=== PATIENT | female | born 1950 | race Caucasian/White ===

== ENCOUNTER 2020-02-17 17:56 | Inpatient (IN) | payer MEDICARE, OTHER ==
[2020-02-17] MEDS ORDERED: Sodium Chloride 0.9% 10 ML Syringe FLUSH PRN (17:58)
[2020-02-17] MEDS ORDERED: Sodium Chloride 0.9% 2.5 ML Syringe FLUSH PRN (17:58)
--- NOTE | 2020-02-17 18:01 | EDM.PDOC ---
ED HPI GENERAL MEDICAL PROBLEM - General Chief Complaint: General Stated Complaint: MUSCLE WEAKNESS Time Seen by Provider: 02/17/20 17:57 Source of Information: Reports: Patient History Limitations: Reports: No Limitations - History of Present Illness INITIAL COMMENTS - FREE TEXT/NARRATIVE: 69-year-old female who presents today from a fall from standing. Patient states that she was walking and last came out and she fell hitting the table her arm. Patient not sure if she hit her head or not but denies any LOC. After fall patient complains of no pain no nausea vomiting or change in ambulation. Patient that she has been having some trouble walking with her leg for the past few months at baseline. L forearm Pain Score (Numeric/FACES): 4 - Related Data Allergies Allergy/AdvReac Type Severity Reaction Status Date / Time coffee (Coffea arabica) Allergy Hives Verified 02/17/20 18:03 ibuprofen Allergy Hives Verified 02/17/20 18:03 Home Meds: Home Meds . [No Known Home Meds] 02/17/20 [History] ED ROS GENERAL - Review of Systems Review Of Systems: See Below Constitutional: Reports: No Symptoms HEENT: Reports: No Symptoms Respiratory: Reports: No Symptoms Cardiovascular: Reports: No Symptoms Endocrine: Reports: No Symptoms GI/Abdominal: Reports: No Symptoms : Reports: No Symptoms Musculoskeletal: Reports: No Symptoms Skin: Reports: No Symptoms Neurological: Reports: No Symptoms Psychiatric: Reports: No Symptoms Hematologic/Lymphatic: Reports: No Symptoms Immunologic: Reports: No Symptoms ED EXAM, GENERAL - Physical Exam Exam: See Below Exam Limited By: No Limitations General Appearance: Alert, WD/WN Eye Exam: Bilateral Eye: EOMI, PERRL Head: Atraumatic Neck: Normal Inspection Respiratory/Chest: No Respiratory Distress, Lungs Clear, Normal Breath Sounds Cardiovascular: Normal Peripheral Pulses, Regular Rate, Rhythm Peripheral Pulses: 2+: Radial (L), Radial (R) GI/Abdominal: Normal Bowel Sounds, Soft, Non-Tender Extremities: Normal Inspection, Normal Range of Motion Neurological: Alert, Oriented, CN II-XII Intact, Normal Cognition, Normal Gait #1 Interpretation EKG Date: 02/17/20 Time: 18:05 Rhythm: NSR Rate (Beats/Min): 84 ST-T: Normal Course - Vital Signs Last Recorded V/S: Last Vital Signs Temp 98 F 02/17/20 17:58 Pulse 91 02/17/20 17:58 Resp 20 02/17/20 17:58 BP 131/102 H 02/17/20 17:58 Pulse Ox 96 02/17/20 17:58 - Orders/Labs/Meds Orders: Active Orders 24 hr Category Date Time Status Consult to Home Care [Consult to Home Health] [CONS] Cons 02/17/20 18:47 Active Routine CORONAVIRUS COVID-19 JOSH [MOLEC] Urgent Lab 02/17/20 18:51 Ordered Sodium Chloride 0.9% [Normal Saline] 1,000 ml Med 02/17/20 18:15 Active IV ASDIRECTED Sodium Chloride 0.9% [Saline Flush] Med 02/17/20 17:58 Active 10 ml FLUSH ASDIRECTED PRN Sodium Chloride 0.9% [Saline Flush] Med 02/17/20 17:58 Active 2.5 ml FLUSH ASDIRECTED PRN Saline Lock Insert [OM.PC] Stat Oth 02/17/20 17:59 Ordered Medication Orders Sodium Chloride (Normal Saline) 1,000 mls @ 999 mls/hr IV ASDIRECTED ODELL Last Admin: 02/17/20 18:08 Dose: 999 mls/hr Documented by: REUSCIN Sodium Chloride (Saline Flush) 10 ml FLUSH ASDIRECTED PRN PRN Reason: Keep Vein Open Last Admin: 02/17/20 18:07 Dose: 10 ml Documented by: REUSCIN Sodium Chloride (Saline Flush) 2.5 ml FLUSH ASDIRECTED PRN PRN Reason: Keep Vein Open Last Admin: 02/17/20 18:07 Dose: 2.5 ml Documented by: REUSCIN Labs: Laboratory Tests 02/17/20 02/17/20 Range/Units 18:15 18:15 WBC 7.86 (4.0-11.0) K/uL RBC 4.71 (4.30-5.90) M/uL Hgb 14.6 (12.0-16.0) g/dL Hct 44.4 (36.0-46.0) % MCV 94.3 (80.0-98.0) fL MCH 31.0 (27.0-32.0) pg MCHC 32.9 (31.0-37.0) g/dL RDW Std Deviation 43.0 (28.0-62.0) fl RDW Coeff of Nicci 13 (11.0-15.0) % Plt Count 246 (150-400) K/uL MPV 10.20 (7.40-12.00) fL Neut % (Auto) 61.9 (48.0-80.0) % Lymph % (Auto) 30.0 (16.0-40.0) % [place] % (Auto) 6.9 (0.0-15.0) % Eos % (Auto) 0.9 (0.0-7.0) % Baso % (Auto) 0.3 (0.0-1.5) % Neut # (Auto) 4.9 (1.4-5.7) K/uL Lymph # (Auto) 2.4 (0.6-2.4) K/uL [place] # (Auto) 0.5 (0.0-0.8) K/uL Eos # (Auto) 0.1 (0.0-0.7) K/uL Baso # (Auto) 0.0 (0.0-0.1) K/uL Nucleated RBC % 0.0 /100WBC Nucleated RBCs # 0 K/uL Sodium 141 (136-145) mmol/L Potassium 3.5 (3.5-5.1) mmol/L Chloride 104 (98-107) mmol/L Carbon Dioxide 27.1 (21.0-32.0) mmol/L BUN 17 (7.0-18.0) mg/dL Creatinine 1.2 H (0.6-1.0) mg/dL Est Cr Clr Drug Dosing 37.67 mL/min Estimated GFR (MDRD) 44.4 ml/min Glucose 257 H (74-106) mg/dL Calcium 8.5 (8.5-10.1) mg/dL Meds: Medications Generic Name Dose Route Start Last Admin Trade Name Freq PRN Reason Stop Dose Admin Sodium Chloride 1,000 mls @ 999 mls/hr 02/17/20 18:15 02/17/20 18:08 Normal Saline IV 999 mls/hr ASDIRECTED ODELL Administration Sodium Chloride 10 ml 02/17/20 17:58 02/17/20 18:07 Saline Flush FLUSH 10 ml ASDIRECTED PRN Administration Keep Vein Open Sodium Chloride 2.5 ml 02/17/20 17:58 02/17/20 18:07 Saline Flush FLUSH 2.5 ml ASDIRECTED PRN Administration Keep Vein Open Discontinued Medications Generic Name Dose Route Start Last Admin Trade Name Tracy PRN Reason Stop Dose Admin Amlodipine Besylate 5 mg 02/17/20 18:50 Norvasc PO 02/17/20 18:51 ONETIME ONE - Re-Assessments/Exams Free Text/Narrative Re-Assessment/Exam: 02/17/20 18:[address] is negative as well as C-spine. Patient sugar still greater than 250 patient likely a new onset diabetic will likely need to be started on Metformin patient also has an elevated blood pressure greater than 200 she states she never goes to the physician patient may need to be started on blood pressure medication as well will get amlodipine in the ED. Patient is asymptomatic with a high blood pressure. The hospitalist and also consulted, they patient will be admitted to the hospital for further care. Departure - Departure Time of Disposition: 18:58 Disposition: Admitted As Inpatient 65 Condition: Good Clinical Impression: Diabetes mellitus, new onset, Hypertensive urgency - Discharge Information *PRESCRIPTION DRUG MONITORING PROGRAM REVIEWED*: Not Applicable *COPY OF PRESCRIPTION DRUG MONITORING REPORT IN PATIENT DAYANA: Not Applicable Referrals: PCP,None [Primary Care Provider] - Forms: ED Department Discharge Sepsis Event Note (ED) - Focused Exam Vital Signs: Vital Signs Temp Pulse Resp BP Pulse Ox 02/17/20 17:58 98 F 91 20 131/102 H 96 - My Orders Last 24 Hours: My Active Orders 02/17/20 17:58 Sodium Chloride 0.9% [Saline Flush] 10 ml FLUSH ASDIRECTED PRN Sodium Chloride 0.9% [Saline Flush] 2.5 ml FLUSH ASDIRECTED PRN 02/17/20 17:59 Saline Lock Insert [OM.PC] Stat 02/17/20 18:15 Sodium Chloride 0.9% [Normal Saline] 1,000 ml IV ASDIRECTED 02/17/20 18:47 Consult to Home Care [Consult to Home Health] [CONS] Routine 02/17/20 18:51 CORONAVIRUS COVID-19 JOSH [MOLEC] Urgent - Assessment/Plan Last 24 Hours: My Active Orders 02/17/20 17:58 Sodium Chloride 0.9% [Saline Flush] 10 ml FLUSH ASDIRECTED PRN Sodium Chloride 0.9% [Saline Flush] 2.5 ml FLUSH ASDIRECTED PRN 02/17/20 17:59 Saline Lock Insert [OM.PC] Stat 02/17/20 18:15 Sodium Chloride 0.9% [Normal Saline] 1,000 ml IV ASDIRECTED 02/17/20 18:47 Consult to Home Care [Consult to Home Health] [CONS] Routine 02/17/20 18:51 CORONAVIRUS COVID-19 JOSH [MOLEC] Urgent Assessment:: Is a 69-year-old female who presents today after a fall from standing. Patient states her leg gave out. No signs of syncope. Patient has no LOC. Will obtain labs and CT scan of head.
[2020-02-17] MEDS ORDERED: Sodium Chloride 0.9% 1,000 ML IV SCH (18:15)
[2020-02-17 18:37] LABS: CARBON DIOXIDE,CO2 27.1 mmol/L (21.0-32.0); POTASSIUM,K 3.5 mmol/L (3.5-5.1)
--- NOTE | 2020-02-17 18:44 | CT ---
INDICATION: fall CT CERVICAL SPINE WITHOUT CONTRAST TECHNIQUE: Multidetector axial CT imaging was performed through the cervical spine, without contrast. Sagittal and coronal reconstructions were generated. FINDINGS: No acute fractures are identified. Multilevel degenerative change is noted in the cervical spine, including degenerative disc disease at C4-5, C5-6, and C6-7, and scattered minor facet joint degenerative changes. Osseous alignment is within normal limits and no subluxation is seen. Prevertebral soft tissues are unremarkable. Included portions of the airway and lung apices are unremarkable aside from pulmonary emphysema. IMPRESSION: 1. No fracture, subluxation, or other acute finding identified. 2. Cervical spondylosis, as noted above. EMERSON JIMENEZ MD [facility] Dictated by: Luther Jimenez MD @ 02/17/2020 18:43:06 (Electronically Signed)
--- NOTE | 2020-02-17 18:46 | CT ---
INDICATION: fall CT HEAD WITHOUT CONTRAST TECHNIQUE: Multiple axial CT images were performed through the head without intravenous contrast administration. COMPARISON: No previous studies are currently available for comparison. FINDINGS: No acute intracranial hemorrhage is identified. No extra-axial collections are evident and there is no mass effect or midline shift. There is mild diffuse age-related brain atrophy. Ventricular size and configuration are within normal limits for the patient`s age. Davila-white differentiation is within normal limits. There is patchy hypodensity in the periventricular white matter, a nonspecific finding which most likely reflects chronic small vessel ischemic change. There are small chronic lacunar infarcts in the basal ganglia and right centrum semiovale. Osseous structures are within normal limits and no fractures are seen. Included portions of the paranasal sinuses and mastoid air cells are normally aerated. IMPRESSION: 1. No acute intracranial abnormality identified. 2. Mild age-related brain atrophy, white matter hypodensity consistent with chronic small vessel ischemic change, and small chronic lacunar infarcts. EMERSON JIMENEZ MD [facility] Dictated by: Luther Jimenez MD @ 02/17/2020 18:44:10 (Electronically Signed)
[2020-02-17] MEDS ORDERED: amLODIPine 5 MG Tab PO ONE ×2 (18:50→22:20)
[2020-02-17] MEDS ORDERED: Diphtheria,Pertussis(Acell),Tetanus Vaccine 0.5 ML Syringe IM ONE (19:05)
[2020-02-17] MEDS ORDERED: Labetalol 100 MG/20 ML MDV IVPUSH ONE (19:46)
[2020-02-17] MEDS ORDERED: 50% Dextrose in Water 50 ML Syringe IV PRN (19:47)
[2020-02-17] MEDS ORDERED: Glucagon,Human Recombinant 1 MG Vial IM PRN (19:47)
[2020-02-17 20:09] LABS: BILIRUBIN INDIRECT 0.3
[2020-02-17] MEDS ORDERED: Aspirin 81 MG Tab.Chew PO SCH (21:00)
--- NOTE | 2020-02-17 22:14 | PCM.HP.2 ---
H&P History of Present Illness - General Date of Service: 02/17/20 Admit Problem/Dx: Admission Diagnosis/Problem Admission Diagnosis/Problem Fall - History of Present Illness Initial Comments - Free Text/Narative: 69-year-old female with h/o of hysterectomy 40 years back, who presents today from a fall from standing. Patient states she was walking towards her kitchen when she fell and scraped her arm. Patient not sure if she hit her head or not but denies any LOC. Patient denied pain, nausea vomiting , fever, chills, syncope. States she has been feeling her knees just give out sometimes and also is having some urinary incontinence for past 3 months. Denied any focal neurological deficits, denied, numbness, tingling, loss of sensation in perineum, or fecal incontinence. 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 Patient was found to be hypertensive with SBP in 200s, her blood sugars were high as well. Patient states she hasnt seen any physician for last few decades as she "doesnt like to see doctors" and takes no meds. She lives at home with her brother, per ER family was concerned about her falls. Patient was admitted for further management. L forearm Pain Score (Numeric/FACES): 4 - Related Data Allergies/Adverse Reactions: Allergies Allergy/AdvReac Type Severity Reaction Status Date / Time coffee (Coffea arabica) Allergy Hives Verified 02/17/20 22:54 ibuprofen Allergy Hives Verified 02/17/20 22:54 Home Medications: Home Meds . 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 Denies: Fever, Chills, Malaise, Fatigue, Decreased Appetite, Weight Loss Pulmonary: Denies: Shortness of Breath, Wheezing Cardiovascular: Denies: Chest Pain, Palpitations, Dyspnea on Exertion Gastrointestinal: Denies: Abdominal Pain, Anorexia, Black Stool, Bloody Stool, Constipation Genitourinary: Reports: Dysuria, Frequency, Urgency, Incontinence Musculoskeletal: Denies: Neck Pain, Shoulder Pain, Arm Pain Skin: Denies: Cyanosis, Jaundice, Mottled Psychiatric: Denies: Confusion, Depression Exam - Exam Exam: See Below - Vital Signs Vital Signs: Last Vital Signs Temp 36.6 C 02/17/20 17:58 Pulse 86 02/17/20 21:31 Resp 18 02/17/20 21:31 BP 213/75 H 02/17/20 21:31 Pulse Ox 97 02/17/20 21:31 Orthostatic Blood Pressure [ 200/88 Sitting] Orthostatic Blood Pressure [ 170/88 Standing] Orthostatic Blood Pressure [ 153/90 Supine] Weight: 65.136 kg - Exam Quality Assessment: No: Supplemental Oxygen General: Alert, Oriented, Cooperative Neck: Supple Lungs: Clear to Auscultation, Normal Respiratory Effort Cardiovascular: Regular Rate, Regular Rhythm, Normal S1, Normal S2 GI/Abdominal Exam: Normal Bowel Sounds, Soft, Non-Tender Back Exam: Normal Inspection, Full Range of Motion Extremities: Normal Inspection, Normal Range of Motion Skin: Warm, Dry - Patient Data Lab Results Last 24 hrs: Laboratory Results - last 24 hr 02/17/20 02/17/20 02/17/20 Range/Units 18:15 18:15 18:15 WBC 7.86 (4.0-11.0) K/uL RBC 4.71 (4.30-5.90) M/uL Hgb 14.6 (12.0-16.0) g/dL Hct 44.4 (36.0-46.0) % MCV 94.3 (80.0-98.0) fL MCH 31.0 (27.0-32.0) pg MCHC 32.9 (31.0-37.0) g/dL RDW Std Deviation 43.0 (28.0-62.0) fl RDW Coeff of Nicci 13 (11.0-15.0) % Plt Count 246 (150-400) K/uL MPV 10.20 (7.40-12.00) fL Neut % (Auto) 61.9 (48.0-80.0) % Lymph % (Auto) 30.0 (16.0-40.0) % [place] % (Auto) 6.9 (0.0-15.0) % Eos % (Auto) 0.9 (0.0-7.0) % Baso % (Auto) 0.3 (0.0-1.5) % Neut # (Auto) 4.9 (1.4-5.7) K/uL Lymph # (Auto) 2.4 (0.6-2.4) K/uL [place] # (Auto) 0.5 (0.0-0.8) K/uL Eos # (Auto) 0.1 (0.0-0.7) K/uL Baso # (Auto) 0.0 (0.0-0.1) K/uL Nucleated RBC % 0.0 /100WBC Nucleated RBCs # 0 K/uL Sodium 141 (136-145) mmol/L Potassium 3.5 (3.5-5.1) mmol/L Chloride 104 (98-107) mmol/L Carbon Dioxide 27.1 (21.0-32.0) mmol/L BUN 17 (7.0-18.0) mg/dL Creatinine 1.2 H (0.6-1.0) mg/dL Est Cr Clr Drug Dosing 37.67 mL/min Estimated GFR (MDRD) 44.4 ml/min Glucose 257 H (74-106) mg/dL Hemoglobin A1c 10.0 H (4.5 - 6.2) % Calcium 8.5 (8.5-10.1) mg/dL Total Bilirubin (0.2-1.0) mg/dL Direct Bilirubin (0.0-0.5) mg/dL Indirect Bilirubin AST (15-37) IU/L ALT (14-63) IU/L Alkaline Phosphatase (46-116) U/L Total Protein (6.4-8.2) g/dL Albumin (3.4-5.0) g/dL Globulin (2.6-4.0) g/dL Albumin/Globulin Ratio (0.9-1.6) TSH 3rd Generation (0.36-3.74) uIU/mL SARS-CoV-2 RNA (JOSH) (NEGATIVE) 02/17/20 02/17/20 02/17/20 Range/Units 18:15 18:15 19:14 WBC (4.0-11.0) K/uL RBC (4.30-5.90) M/uL Hgb (12.0-16.0) g/dL Hct (36.0-46.0) % MCV (80.0-98.0) fL MCH (27.0-32.0) pg MCHC (31.0-37.0) g/dL RDW Std Deviation (28.0-62.0) fl RDW Coeff of Nicci (11.0-15.0) % Plt Count (150-400) K/uL MPV (7.40-12.00) fL Neut % (Auto) (48.0-80.0) % Lymph % (Auto) (16.0-40.0) % [place] % (Auto) (0.0-15.0) % Eos % (Auto) (0.0-7.0) % Baso % (Auto) (0.0-1.5) % Neut # (Auto) (1.4-5.7) K/uL Lymph # (Auto) (0.6-2.4) K/uL [place] # (Auto) (0.0-0.8) K/uL Eos # (Auto) (0.0-0.7) K/uL Baso # (Auto) (0.0-0.1) K/uL Nucleated RBC % /100WBC Nucleated RBCs # K/uL Sodium (136-145) mmol/L Potassium (3.5-5.1) mmol/L Chloride (98-107) mmol/L Carbon Dioxide (21.0-32.0) mmol/L BUN (7.0-18.0) mg/dL Creatinine (0.6-1.0) mg/dL Est Cr Clr Drug Dosing mL/min Estimated GFR (MDRD) ml/min Glucose (74-106) mg/dL Hemoglobin A1c (4.5 - 6.2) % Calcium (8.5-10.1) mg/dL Total Bilirubin 0.4 (0.2-1.0) mg/dL Direct Bilirubin 0.10 (0.0-0.5) mg/dL Indirect Bilirubin 0.30 AST 12 L (15-37) IU/L ALT 20 (14-63) IU/L Alkaline Phosphatase 94 (46-116) U/L Total Protein 6.4 (6.4-8.2) g/dL Albumin 3.3 L (3.4-5.0) g/dL Globulin 3.1 (2.6-4.0) g/dL Albumin/Globulin Ratio 1.1 (0.9-1.6) TSH 3rd Generation 13.51 H (0.36-3.74) uIU/mL SARS-CoV-2 RNA (JOSH) NEGATIVE (NEGATIVE) Result Diagrams: 02/18/20 06:13 02/18/20 06:13 Sepsis Event Note - Evaluation Sepsis Screening Result: No Definite Risk - Focused Exam Vital Signs: Vital Signs Temp Pulse Resp BP BP Pulse Ox 02/17/20 21:31 86 18 213/75 H 97 02/17/20 20:02 95 16 172/95 H 94 L 02/17/20 19:09 200/88 H 02/17/20 17:58 36.6 C 91 20 131/102 H 96 - Problem List (1) Falls SNOMED Code(s): 0067414, 446836198 ICD Code: W19.XXXA - UNSPECIFIED FALL, INITIAL ENCOUNTER Status: Acute Current Visit: Yes (2) Diabetes mellitus, new onset SNOMED Code(s): 523105245, 996938662 ICD Code: E11.9 - TYPE 2 DIABETES MELLITUS WITHOUT COMPLICATIONS Status: Acute Current Visit: Yes (3) Hypertensive urgency SNOMED Code(s): 799637602 ICD Code: I16.0 - HYPERTENSIVE URGENCY Status: Acute Current Visit: Yes Problem List Initiated/Reviewed/Updated: Yes Orders Last 24hrs: Active Orders 24 hr Category Date Time Status Patient Status [ADT] Routine ADT 02/17/20 19:02 Active Ambulate [RC] ASDIRECTED Care 02/17/20 19:43 Active Antiembolic Devices [RC] PER UNIT ROUTINE Care 02/17/20 19:44 Active Oxygen Therapy [RC] PRN Care 02/17/20 19:43 Active Telemetry Monitoring [Cardiac Monitoring] [RC] . Care 02/17/20 20:16 Active DIRECTED VTE/DVT Education [RC] Q12H Care 02/17/20 19:43 Active Vaccines to be Administered [RC] PER UNIT ROUTINE Care 02/17/20 19:05 Active Vital Signs [RC] Q4H Care 02/17/20 19:43 Active Consult to Home Care [Consult to Home Health] [CONS] Cons 02/17/20 18:47 Active Routine [employer] Diet [DIET] Diet 02/17/20 Breakfast Active BMP [BASIC METABOLIC PANEL,BMP] [CHEM] AM Lab 02/18/20 05:11 Ordered CBC WITH AUTO DIFF [HEME] AM Lab 02/18/20 05:11 Ordered LIPID PANEL [CHEM] AM Lab 02/18/20 05:11 Ordered MAGNESIUM [CHEM] AM Lab 02/18/20 05:11 Ordered PHOSPHORUS [CHEM] AM Lab 02/18/20 05:11 Ordered UA RFX CHRISTIAN AND CULT IF INDIC [URIN] Routine Lab 02/17/20 19:55 Ordered Aspirin Med 02/17/20 21:00 Active 81 mg PO BEDTIME Dextrose 50% in Water Med 02/17/20 19:47 Active 50 ml IV ASDIRECTED PRN Glucagon,Human Recombinant [GlucaGen] Med 02/17/20 19:47 Active 1 mg IM ASDIRECTED PRN Insulin Aspart [NovoLOG] Med 02/18/20 07:30 Active See Protocol SUBCUT TIDAC Labetalol [Normodyne] Med 02/17/20 19:46 Active 20 mg IVPUSH Q4H PRN Sodium Chloride 0.9% [Normal Saline] 1,000 ml Med 02/17/20 18:15 Active IV ASDIRECTED Sodium Chloride 0.9% [Saline Flush] Med 02/17/20 17:58 Active 10 ml FLUSH ASDIRECTED PRN Sodium Chloride 0.9% [Saline Flush] Med 02/17/20 17:58 Active 2.5 ml FLUSH ASDIRECTED PRN amLODIPine [Norvasc] Med 02/18/20 09:00 Active 10 mg PO DAILY atorvaSTATin [Lipitor] Med 02/18/20 21:00 Active 20 mg PO BEDTIME Saline Lock Insert [OM.PC] Stat Oth 02/17/20 17:59 Ordered Sequential Compression Device [OM.PC] Per Unit Routine Oth 02/17/20 19:44 Ordered Resuscitation Status Routine Resus Stat 02/17/20 19:43 Ordered Medication Orders Amlodipine Besylate (Norvasc) 10 mg PO DAILY [facility] Aspirin (Aspirin) 81 mg PO BEDTIME [facility] Last Admin: 02/17/20 21:29 Dose: Not Given Documented by: SHAREE Atorvastatin Calcium (Lipitor) 20 mg PO BEDTIME [facility] Dextrose/Water (Dextrose 50% In Water) 50 ml IV ASDIRECTED PRN PRN Reason: Hypoglycemia Glucagon (Glucagen) 1 mg IM ASDIRECTED PRN PRN Reason: Hypoglycemia Sodium Chloride (Normal Saline) 1,000 mls @ 999 mls/hr IV ASDIRECTED [facility] Last Admin: 02/17/20 18:08 Dose: 999 mls/hr Documented by: THANH Insulin Aspart (Novolog) 0 unit SUBCUT TIDAC [facility]; Protocol Labetalol HCl (Normodyne) 20 mg IVPUSH Q4H PRN; Protocol PRN Reason: Hypertension Sodium Chloride (Saline Flush) 10 ml FLUSH ASDIRECTED PRN PRN Reason: Keep Vein Open Last Admin: 02/17/20 18:07 Dose: 10 ml Documented by: THANH Sodium Chloride (Saline Flush) 2.5 ml FLUSH ASDIRECTED PRN PRN Reason: Keep Vein Open Last Admin: 02/17/20 18:07 Dose: 2.5 ml Documented by: JOHANNUSCIN Assessment/Plan Comment:: 69 y/o F admitted for frequent falls, newly diagnosed HTN, and DM Start Labetalol 20 mg PRN for SBP>180 Start Lisinopril got HTN Start SSI obtain HbA1c, lipid panel, TSH Start Atorvastatin, patient allergic to Aspirin Obtain UA Consult PT Anticipate 2-3 midnight stays
[2020-02-17] MEDS: Labetalol 100 MG/20 ML MDV IVPUSH PRN (23:07)
[2020-02-18] MEDS: Labetalol 100 MG/20 ML MDV IVPUSH PRN (01:25)
[2020-02-18] MEDS ORDERED: Diltiazem 25 MG/5 ML SDV IVPUSH ONE (01:26)
[2020-02-18 07:21] LABS: CARBON DIOXIDE,CO2 25.7 mmol/L (21.0-32.0); POTASSIUM,K 3.2 mmol/L (3.5-5.1)
[2020-02-18] MEDS ORDERED: Lisinopril 5 MG Tab PO SCH ×2 (09:00→09:45)
[2020-02-18] MEDS: amLODIPine 5 MG Tab PO SCH (09:01)
[2020-02-18] MEDS: Insulin Aspart 100 Units/ML 3 ML Pen SUBCUT SCH ×3 (09:23→18:30)
[2020-02-18] MEDS ORDERED: Lisinopril 5 MG Tab PO ONE (10:00)
[2020-02-18] MEDS: cefTRIAXone 1 GM in Premix Bag 1 BAG IV SCH (11:46)
[2020-02-18] MEDS: Acidophilus with Citrus Pectin Tab PO SCH (13:34)
--- NOTE | 2020-02-18 15:07 | PCM.PN ---
- General Info Date of Service: 02/18/20 Admission Dx/Problem (Free Text): Admission Diagnosis/Problem Admission Diagnosis/Problem Fall Subjective Update: 69-year-old female admitted post fall for weakness and work-up contributing to fall. Patient appears to be weak, mildly confused, unstable on her feet. There were no overnight events, this morning states she feels little better. Denies any fever cough, chills, or pain. Functional Status: Reports: Pain Controlled, Tolerating Diet, Urinating - Review of Systems General: Reports: Weakness HEENT: Reports: No Symptoms Pulmonary: Reports: No Symptoms Cardiovascular: Reports: No Symptoms Gastrointestinal: Reports: No Symptoms Genitourinary: Reports: No Symptoms Musculoskeletal: Reports: No Symptoms Skin: Reports: No Symptoms Neurological: Reports: No Symptoms Psychiatric: Reports: No Symptoms - Patient Data Vitals - Most Recent: Last Vital Signs Temp 97.7 F 02/18/20 11:54 Pulse 84 02/18/20 11:54 Resp 16 02/18/20 11:54 BP 125/64 02/18/20 11:54 Pulse Ox 95 02/18/20 11:54 Orthostatic Blood Pressure [ 200/88 Sitting] Orthostatic Blood Pressure [ 170/88 Standing] Orthostatic Blood Pressure [ 153/90 Supine] Weight - Most Recent: 143 lb 9.6 oz I&O - Last 24 Hours: Intake & Output 02/18/20 02/18/20 02/18/20 06:59 14:59 22:59 Intake Total 500 Balance 500 Lab Results Last 24 Hours: Laboratory Results - last 24 hr 02/17/20 02/17/20 02/17/20 Range/Units 18:15 18:15 18:15 WBC 7.86 (4.0-11.0) K/uL RBC 4.71 (4.30-5.90) M/uL Hgb 14.6 (12.0-16.0) g/dL Hct 44.4 (36.0-46.0) % MCV 94.3 (80.0-98.0) fL MCH 31.0 (27.0-32.0) pg MCHC 32.9 (31.0-37.0) g/dL RDW Std Deviation 43.0 (28.0-62.0) fl RDW Coeff of Nicci 13 (11.0-15.0) % Plt Count 246 (150-400) K/uL MPV 10.20 (7.40-12.00) fL Neut % (Auto) 61.9 (48.0-80.0) % Lymph % (Auto) 30.0 (16.0-40.0) % [place] % (Auto) 6.9 (0.0-15.0) % Eos % (Auto) 0.9 (0.0-7.0) % Baso % (Auto) 0.3 (0.0-1.5) % Neut # (Auto) 4.9 (1.4-5.7) K/uL Lymph # (Auto) 2.4 (0.6-2.4) K/uL [place] # (Auto) 0.5 (0.0-0.8) K/uL Eos # (Auto) 0.1 (0.0-0.7) K/uL Baso # (Auto) 0.0 (0.0-0.1) K/uL Nucleated RBC % 0.0 /100WBC Nucleated RBCs # 0 K/uL Sodium 141 (136-145) mmol/L Potassium 3.5 (3.5-5.1) mmol/L Chloride 104 (98-107) mmol/L Carbon Dioxide 27.1 (21.0-32.0) mmol/L BUN 17 (7.0-18.0) mg/dL Creatinine 1.2 H (0.6-1.0) mg/dL Est Cr Clr Drug Dosing 37.67 mL/min Estimated GFR (MDRD) 44.4 ml/min Glucose 257 H (74-106) mg/dL POC Glucose (60-110) mg/dL Hemoglobin A1c 10.0 H (4.5 - 6.2) % Calcium 8.5 (8.5-10.1) mg/dL Phosphorus (2.6-4.7) mg/dL Magnesium (1.8-2.4) mg/dL Total Bilirubin (0.2-1.0) mg/dL Direct Bilirubin (0.0-0.5) mg/dL Indirect Bilirubin AST (15-37) IU/L ALT (14-63) IU/L Alkaline Phosphatase (46-116) U/L Total Protein (6.4-8.2) g/dL Albumin (3.4-5.0) g/dL Globulin (2.6-4.0) g/dL Albumin/Globulin Ratio (0.9-1.6) Triglycerides (0-200) mg/dL Cholesterol (50-200) mg/dL LDL Cholesterol, Calc (60-180) mg/dL VLDL Cholesterol (5-55) mg/dL HDL Cholesterol (40-60) mg/dL Cholesterol/HDL Ratio (3.3-6.0) Free T4 (0.76-1.46) ng/dL TSH 3rd Generation (0.36-3.74) uIU/mL Urine Color Urine Appearance Urine pH (5.0-8.0) Ur Specific [place] (1.001-1.035) Urine Protein (NEGATIVE) mg/dL Urine Glucose (UA) (NEGATIVE) mg/dL Urine Ketones (NEGATIVE) mg/dL Urine Occult Blood (NEGATIVE) Urine Nitrite (NEGATIVE) Urine Bilirubin (NEGATIVE) Urine Urobilinogen (<2.0) EU/dL Ur Leukocyte Esterase (NEGATIVE) Urine RBC (0-2/HPF) Urine WBC (0-5/HPF) Ur Epithelial Cells (NONE-FEW) Urine Bacteria (NEGATIVE) SARS-CoV-2 RNA (JOSH) (NEGATIVE) 02/17/20 02/17/20 02/17/20 Range/Units 18:15 18:15 18:15 WBC (4.0-11.0) K/uL RBC (4.30-5.90) M/uL Hgb (12.0-16.0) g/dL Hct (36.0-46.0) % MCV (80.0-98.0) fL MCH (27.0-32.0) pg MCHC (31.0-37.0) g/dL RDW Std Deviation (28.0-62.0) fl RDW Coeff of Nicci (11.0-15.0) % Plt Count (150-400) K/uL MPV (7.40-12.00) fL Neut % (Auto) (48.0-80.0) % Lymph % (Auto) (16.0-40.0) % [place] % (Auto) (0.0-15.0) % Eos % (Auto) (0.0-7.0) % Baso % (Auto) (0.0-1.5) % Neut # (Auto) (1.4-5.7) K/uL Lymph # (Auto) (0.6-2.4) K/uL [place] # (Auto) (0.0-0.8) K/uL Eos # (Auto) (0.0-0.7) K/uL Baso # (Auto) (0.0-0.1) K/uL Nucleated RBC % /100WBC Nucleated RBCs # K/uL Sodium (136-145) mmol/L Potassium (3.5-5.1) mmol/L Chloride (98-107) mmol/L Carbon Dioxide (21.0-32.0) mmol/L BUN (7.0-18.0) mg/dL Creatinine (0.6-1.0) mg/dL Est Cr Clr Drug Dosing mL/min Estimated GFR (MDRD) ml/min Glucose (74-106) mg/dL POC Glucose (60-110) mg/dL Hemoglobin A1c (4.5 - 6.2) % Calcium (8.5-10.1) mg/dL Phosphorus (2.6-4.7) mg/dL Magnesium (1.8-2.4) mg/dL Total Bilirubin 0.4 (0.2-1.0) mg/dL Direct Bilirubin 0.10 (0.0-0.5) mg/dL Indirect Bilirubin 0.30 AST 12 L (15-37) IU/L ALT 20 (14-63) IU/L Alkaline Phosphatase 94 (46-116) U/L Total Protein 6.4 (6.4-8.2) g/dL Albumin 3.3 L (3.4-5.0) g/dL Globulin 3.1 (2.6-4.0) g/dL Albumin/Globulin Ratio 1.1 (0.9-1.6) Triglycerides (0-200) mg/dL Cholesterol (50-200) mg/dL LDL Cholesterol, Calc (60-180) mg/dL VLDL Cholesterol (5-55) mg/dL HDL Cholesterol (40-60) mg/dL Cholesterol/HDL Ratio (3.3-6.0) Free T4 0.84 (0.76-1.46) ng/dL TSH 3rd Generation 13.51 H (0.36-3.74) uIU/mL Urine Color Urine Appearance Urine pH (5.0-8.0) Ur Specific [place] (1.001-1.035) Urine Protein (NEGATIVE) mg/dL Urine Glucose (UA) (NEGATIVE) mg/dL Urine Ketones (NEGATIVE) mg/dL Urine Occult Blood (NEGATIVE) Urine Nitrite (NEGATIVE) Urine Bilirubin (NEGATIVE) Urine Urobilinogen (<2.0) EU/dL Ur Leukocyte Esterase (NEGATIVE) Urine RBC (0-2/HPF) Urine WBC (0-5/HPF) Ur Epithelial Cells (NONE-FEW) Urine Bacteria (NEGATIVE) SARS-CoV-2 RNA (JOSH) (NEGATIVE) 02/17/20 02/18/20 02/18/20 Range/Units 19:14 06:13 06:13 WBC 8.43 (4.0-11.0) K/uL RBC 4.57 (4.30-5.90) M/uL Hgb 13.7 (12.0-16.0) g/dL Hct 43.2 (36.0-46.0) % MCV 94.5 (80.0-98.0) fL MCH 30.0 (27.0-32.0) pg MCHC 31.7 (31.0-37.0) g/dL RDW Std Deviation 43.3 (28.0-62.0) fl RDW Coeff of Nicci 13 (11.0-15.0) % Plt Count 242 (150-400) K/uL MPV 10.60 (7.40-12.00) fL Neut % (Auto) 59.8 (48.0-80.0) % Lymph % (Auto) 32.0 (16.0-40.0) % [place] % (Auto) 6.6 (0.0-15.0) % Eos % (Auto) 1.2 (0.0-7.0) % Baso % (Auto) 0.4 (0.0-1.5) % Neut # (Auto) 5.0 (1.4-5.7) K/uL Lymph # (Auto) 2.7 H (0.6-2.4) K/uL [place] # (Auto) 0.6 (0.0-0.8) K/uL Eos # (Auto) 0.1 (0.0-0.7) K/uL Baso # (Auto) 0.0 (0.0-0.1) K/uL Nucleated RBC % 0.0 /100WBC Nucleated RBCs # 0 K/uL Sodium 140 (136-145) mmol/L Potassium 3.2 L (3.5-5.1) mmol/L Chloride 103 (98-107) mmol/L Carbon Dioxide 25.7 (21.0-32.0) mmol/L BUN 13 (7.0-18.0) mg/dL Creatinine 1.0 (0.6-1.0) mg/dL Est Cr Clr Drug Dosing 45.20 mL/min Estimated GFR (MDRD) 54.8 ml/min Glucose 260 H (74-106) mg/dL POC Glucose (60-110) mg/dL Hemoglobin A1c (4.5 - 6.2) % Calcium 8.5 (8.5-10.1) mg/dL Phosphorus 3.2 (2.6-4.7) mg/dL Magnesium 2.1 (1.8-2.4) mg/dL Total Bilirubin (0.2-1.0) mg/dL Direct Bilirubin (0.0-0.5) mg/dL Indirect Bilirubin AST (15-37) IU/L ALT (14-63) IU/L Alkaline Phosphatase (46-116) U/L Total Protein (6.4-8.2) g/dL Albumin (3.4-5.0) g/dL Globulin (2.6-4.0) g/dL Albumin/Globulin Ratio (0.9-1.6) Triglycerides 314 H (0-200) mg/dL Cholesterol 218 H (50-200) mg/dL LDL Cholesterol, Calc 120 (60-180) mg/dL VLDL Cholesterol 62 H (5-55) mg/dL HDL Cholesterol 35 L (40-60) mg/dL Cholesterol/HDL Ratio 6.2 H (3.3-6.0) Free T4 (0.76-1.46) ng/dL TSH 3rd Generation (0.36-3.74) uIU/mL Urine Color Urine Appearance Urine pH (5.0-8.0) Ur Specific [place] (1.001-1.035) Urine Protein (NEGATIVE) mg/dL Urine Glucose (UA) (NEGATIVE) mg/dL Urine Ketones (NEGATIVE) mg/dL Urine Occult Blood (NEGATIVE) Urine Nitrite (NEGATIVE) Urine Bilirubin (NEGATIVE) Urine Urobilinogen (<2.0) EU/dL Ur Leukocyte Esterase (NEGATIVE) Urine RBC (0-2/HPF) Urine WBC (0-5/HPF) Ur Epithelial Cells (NONE-FEW) Urine Bacteria (NEGATIVE) SARS-CoV-2 RNA (JOSH) NEGATIVE (NEGATIVE) 02/18/20 02/18/20 02/18/20 Range/Units 06:14 09:02 09:40 WBC (4.0-11.0) K/uL RBC (4.30-5.90) M/uL Hgb (12.0-16.0) g/dL Hct (36.0-46.0) % MCV (80.0-98.0) fL MCH (27.0-32.0) pg MCHC (31.0-37.0) g/dL RDW Std Deviation (28.0-62.0) fl RDW Coeff of Nicci (11.0-15.0) % Plt Count (150-400) K/uL MPV (7.40-12.00) fL Neut % (Auto) (48.0-80.0) % Lymph % (Auto) (16.0-40.0) % [place] % (Auto) (0.0-15.0) % Eos % (Auto) (0.0-7.0) % Baso % (Auto) (0.0-1.5) % Neut # (Auto) (1.4-5.7) K/uL Lymph # (Auto) (0.6-2.4) K/uL [place] # (Auto) (0.0-0.8) K/uL Eos # (Auto) (0.0-0.7) K/uL Baso # (Auto) (0.0-0.1) K/uL Nucleated RBC % /100WBC Nucleated RBCs # K/uL Sodium (136-145) mmol/L Potassium (3.5-5.1) mmol/L Chloride (98-107) mmol/L Carbon Dioxide (21.0-32.0) mmol/L BUN (7.0-18.0) mg/dL Creatinine (0.6-1.0) mg/dL Est Cr Clr Drug Dosing mL/min Estimated GFR (MDRD) ml/min Glucose (74-106) mg/dL POC Glucose 258 H 234 H (60-110) mg/dL Hemoglobin A1c (4.5 - 6.2) % Calcium (8.5-10.1) mg/dL Phosphorus (2.6-4.7) mg/dL Magnesium (1.8-2.4) mg/dL Total Bilirubin (0.2-1.0) mg/dL Direct Bilirubin (0.0-0.5) mg/dL Indirect Bilirubin AST (15-37) IU/L ALT (14-63) IU/L Alkaline Phosphatase (46-116) U/L Total Protein (6.4-8.2) g/dL Albumin (3.4-5.0) g/dL Globulin (2.6-4.0) g/dL Albumin/Globulin Ratio (0.9-1.6) Triglycerides (0-200) mg/dL Cholesterol (50-200) mg/dL LDL Cholesterol, Calc (60-180) mg/dL VLDL Cholesterol (5-55) mg/dL HDL Cholesterol (40-60) mg/dL Cholesterol/HDL Ratio (3.3-6.0) Free T4 (0.76-1.46) ng/dL TSH 3rd Generation (0.36-3.74) uIU/mL Urine Color YELLOW Urine Appearance SLT CLOUDY Urine pH 6.0 (5.0-8.0) Ur Specific [place] 1.025 (1.001-1.035) Urine Protein NEGATIVE (NEGATIVE) mg/dL Urine Glucose (UA) 500 H (NEGATIVE) mg/dL Urine Ketones NEGATIVE (NEGATIVE) mg/dL Urine Occult Blood TRACE-INTACT H (NEGATIVE) Urine Nitrite NEGATIVE (NEGATIVE) Urine Bilirubin NEGATIVE (NEGATIVE) Urine Urobilinogen 0.2 (<2.0) EU/dL Ur Leukocyte Esterase TRACE H (NEGATIVE) Urine RBC 1-3 (0-2/HPF) Urine WBC 35-40 (0-5/HPF) Ur Epithelial Cells FEW (NONE-FEW) Urine Bacteria 4+ H (NEGATIVE) SARS-CoV-2 RNA (JOSH) (NEGATIVE) 02/17/ Range/Units 11:53 WBC (4.0-11.0) K/uL RBC (4.30-5.90) M/uL Hgb (12.0-16.0) g/dL Hct (36.0-46.0) % MCV (80.0-98.0) fL MCH (27.0-32.0) pg MCHC (31.0-37.0) g/dL RDW Std Deviation (28.0-62.0) fl RDW Coeff of Nicci (11.0-15.0) % Plt Count (150-400) K/uL MPV (7.40-12.00) fL Neut % (Auto) (48.0-80.0) % Lymph % (Auto) (16.0-40.0) % [place] % (Auto) (0.0-15.0) % Eos % (Auto) (0.0-7.0) % Baso % (Auto) (0.0-1.5) % Neut # (Auto) (1.4-5.7) K/uL Lymph # (Auto) (0.6-2.4) K/uL [place] # (Auto) (0.0-0.8) K/uL Eos # (Auto) (0.0-0.7) K/uL Baso # (Auto) (0.0-0.1) K/uL Nucleated RBC % /100WBC Nucleated RBCs # K/uL Sodium (136-145) mmol/L Potassium (3.5-5.1) mmol/L Chloride (98-107) mmol/L Carbon Dioxide (21.0-32.0) mmol/L BUN (7.0-18.0) mg/dL Creatinine (0.6-1.0) mg/dL Est Cr Clr Drug Dosing mL/min Estimated GFR (MDRD) ml/min Glucose (74-106) mg/dL POC Glucose 282 H (60-110) mg/dL Hemoglobin A1c (4.5 - 6.2) % Calcium (8.5-10.1) mg/dL Phosphorus (2.6-4.7) mg/dL Magnesium (1.8-2.4) mg/dL Total Bilirubin (0.2-1.0) mg/dL Direct Bilirubin (0.0-0.5) mg/dL Indirect Bilirubin AST (15-37) IU/L ALT (14-63) IU/L Alkaline Phosphatase (46-116) U/L Total Protein (6.4-8.2) g/dL Albumin (3.4-5.0) g/dL Globulin (2.6-4.0) g/dL Albumin/Globulin Ratio (0.9-1.6) Triglycerides (0-200) mg/dL Cholesterol (50-200) mg/dL LDL Cholesterol, Calc (60-180) mg/dL VLDL Cholesterol (5-55) mg/dL HDL Cholesterol (40-60) mg/dL Cholesterol/HDL Ratio (3.3-6.0) Free T4 (0.76-1.46) ng/dL TSH 3rd Generation (0.36-3.74) uIU/mL Urine Color Urine Appearance Urine pH (5.0-8.0) Ur Specific [place] (1.001-1.035) Urine Protein (NEGATIVE) mg/dL Urine Glucose (UA) (NEGATIVE) mg/dL Urine Ketones (NEGATIVE) mg/dL Urine Occult Blood (NEGATIVE) Urine Nitrite (NEGATIVE) Urine Bilirubin (NEGATIVE) Urine Urobilinogen (<2.0) EU/dL Ur Leukocyte Esterase (NEGATIVE) Urine RBC (0-2/HPF) Urine WBC (0-5/HPF) Ur Epithelial Cells (NONE-FEW) Urine Bacteria (NEGATIVE) SARS-CoV-2 RNA (JOSH) (NEGATIVE) Med Orders - Current: Current Medications Acidophilus/Pectin (Acidophilus/Pectin, Cole) 1 tab PO DAILY [facility] Last Admin: 02/18/20 13:34 Dose: 1 tab Documented by: Amlodipine Besylate (Norvasc) 10 mg PO DAILY [facility] Last Admin: 02/18/20 09:01 Dose: 10 mg Documented by: Atorvastatin Calcium (Lipitor) 20 mg PO BEDTIME [facility] Dextrose/Water (Dextrose 50% In Water) 50 ml IV ASDIRECTED PRN PRN Reason: Hypoglycemia Glucagon (Glucagen) 1 mg IM ASDIRECTED PRN PRN Reason: Hypoglycemia Ceftriaxone Sodium/Dextrose 1 (gm/ Premix) 50 mls @ 100 mls/hr IV Q24H [facility] Last Admin: 02/18/20 11:46 Dose: 100 mls/hr Documented by: Insulin Aspart (Novolog) 0 unit SUBCUT TIDAC [facility]; Protocol Last Admin: 02/18/20 11:53 Dose: 9 units Documented by: Labetalol HCl (Normodyne) 20 mg IVPUSH Q4H PRN; Protocol PRN Reason: Hypertension Last Admin: 02/18/20 01:25 Dose: 4 ml Documented by: Lisinopril (Prinivil) 20 mg PO DAILY [facility] Melatonin (Melatonin) 3 mg PO BEDTIME PRN PRN Reason: Insomnia Sodium Chloride (Saline Flush) 10 ml FLUSH ASDIRECTED PRN PRN Reason: Keep Vein Open Last Admin: 02/17/20 18:07 Dose: 10 ml Documented by: Sodium Chloride (Saline Flush) 2.5 ml FLUSH ASDIRECTED PRN PRN Reason: Keep Vein Open Last Admin: 02/17/20 18:07 Dose: 2.5 ml Documented by: Discontinued Medications Amlodipine Besylate (Norvasc) 5 mg PO ONETIME ONE Stop: 02/17/20 18:51 Last Admin: 02/17/20 19:09 Dose: 5 mg Documented by: Amlodipine Besylate (Norvasc) 5 mg PO ONETIME ONE Stop: 02/17/20 22:21 Last Admin: 02/17/20 23:07 Dose: 5 mg Documented by: Aspirin (Aspirin) 81 mg PO BEDTIME [facility] Last Admin: 02/17/20 21:29 Dose: Not Given Documented by: Diltiazem HCl (Diltiazem) 20 mg IVPUSH ONETIME ONE Stop: 02/18/20 01:27 Last Admin: 02/18/20 04:25 Dose: Not Given Documented by: Diphtheria/Tetanus/Acell Pertussis (Boostrix) 0.5 ml IM .ONCE ONE Stop: 02/17/20 19:06 Last Admin: 02/17/20 19:09 Dose: 0.5 ml Documented by: Sodium Chloride (Normal Saline) 1,000 mls @ 999 mls/hr IV ASDIRECTED [facility] Last Admin: 02/17/20 18:08 Dose: 999 mls/hr Documented by: Labetalol HCl (Normodyne) 20 mg IVPUSH ONETIME ONE; Protocol Stop: 02/17/20 19:47 Last Admin: 02/17/20 21:26 Dose: 20 mg Documented by: Lisinopril (Prinivil) 5 mg PO DAILY [facility] Last Admin: 02/18/20 09:01 Dose: 5 mg Documented by: Lisinopril (Prinivil) 15 mg PO DAILY [facility] Lisinopril (Prinivil) 15 mg PO ONETIME ONE Stop: 02/18/20 10:01 Last Admin: 02/18/20 09:48 Dose: 15 mg Documented by: - Exam General: Alert, Oriented, Cooperative, No Acute Distress HEENT: Pupils Equal, Pupils Reactive, EOMI, Mucous Membr. Moist/Man Neck: Supple Lungs: Clear to Auscultation, Normal Respiratory Effort Cardiovascular: Regular Rate, Regular Rhythm GI/Abdominal Exam: Normal Bowel Sounds, Soft, Non-Tender Extremities: Normal Inspection, Normal Range of Motion, Non-Tender, No Pedal Edema, Normal Capillary Refill Skin: Warm, Dry, Intact Wound/Incisions: Healing Well Neurological: No New Focal Deficit Psy/Mental Status: Alert, Normal Affect, Normal Mood Sepsis Event Note - Evaluation Sepsis Screening Result: No Definite Risk - Focused Exam Vital Signs: Vital Signs Temp Pulse Resp BP BP Pulse Ox 02/18/20 11:54 97.7 F 84 16 125/64 95 02/18/20 09:48 174/80 H 02/18/20 09:01 174/80 H 02/18/20 08:58 98.3 F 82 16 174/80 H 95 02/18/20 03:50 98.7 F 94 18 151/75 H 95 - Problem List Review Problem List Initiated/Reviewed/Updated: Yes - My Orders Last 24 Hours: My Active Orders 02/18/20 09:37 Urinary Catheter Assessment [RC] ASDIRECTED 02/18/20 09:48 PT Evaluation and Treatment [CONS] Routine 02/18/20 10:45 cefTRIAXone [Rocephin in Dextrose,Iso-Osm 1 GM/50 ML] 1 gm Premix Bag 1 bag IV Q24H 02/18/20 13:30 Acidophilus/Pectin, Cole 1 tab PO DAILY 02/18/20 21:00 Melatonin 3 mg PO BEDTIME PRN 02/19/20 09:00 lisinopriL [Prinivil] 20 mg PO DAILY - Plan Plan:: 69 y/o F admitted for frequent falls, newly diagnosed HTN, and DM 1. UTI: -Leukocyte Estrace, + bacteria, start on Rocephin 1 g/day 2. Uncontrolled hypertension: Came in with hypertensive urgency, no end organ failure Start Labetalol 20 mg PRN for SBP>180 Started on lisinopril 20 3. Uncontrolled diabetes mellitus: Hemoglobin A1c of 10 Start SSI; will adjust based on sliding scale needs 4. Hyperlipidemia: -Lipid panel, indicated hyperlipidemia with hypertriglyceridemia Start Atorvastatin 20, no aspirin as patient is allergic 5. Elevated TSH: Normal T4, elevated TSH of 13.7, therefore subclinical 6. Deconditioning: -Consulted PT for evaluation and treatment Anticipate 2-3 midnight stays
[2020-02-18] MEDS: atorvaSTATin 20 MG Tab PO SCH (20:03)
[2020-02-18] MEDS: Melatonin 3 MG Tab PO PRN (20:03)
[2020-02-19 06:54] LABS: CARBON DIOXIDE,CO2 28.5 mmol/L (21.0-32.0); POTASSIUM,K 3.4 mmol/L (3.5-5.1)
[2020-02-19] MEDS ORDERED: Potassium Chloride 10% 20 MEQ/15 ML Soln 30 ML UD Cup PO ONE (09:05)
[2020-02-19] MEDS: amLODIPine 5 MG Tab PO SCH (09:50)
[2020-02-19] MEDS: Acidophilus with Citrus Pectin Tab PO SCH (09:50)
[2020-02-19] MEDS: Lisinopril 10 MG Tab PO SCH (09:51)
[2020-02-19] MEDS: Insulin Aspart 100 Units/ML 3 ML Pen SUBCUT SCH ×3 (10:04→18:06)
[2020-02-19] MEDS: cefTRIAXone 1 GM in Premix Bag 1 BAG IV SCH (10:31)
--- NOTE | 2020-02-19 13:24 | PCM.PN ---
- General Info Date of Service: 02/19/20 Admission Dx/Problem (Free Text): Admission Diagnosis/Problem Admission Diagnosis/Problem Fall Subjective Update: There were no overnight events, this morning states she feels little better. Denies any fever cough, chills, or pain. PT states she isnt no safe to ambulate on her own, very unsteady on her feet Functional Status: Reports: Tolerating Diet - Review of Systems General: Reports: Weakness. Denies: Fever, Fatigue, Malaise Pulmonary: Denies: Shortness of Breath, Pleuritic Chest Pain Cardiovascular: Denies: Chest Pain, Palpitations, Dyspnea on Exertion Gastrointestinal: Denies: Abdominal Pain, Constipation, Decreased Appetite Genitourinary: Denies: Dysuria, Frequency, Burning Musculoskeletal: Denies: Neck Pain, Shoulder Pain, Arm Pain, Hand Pain Skin: Denies: Cyanosis, Jaundice, Mottled - Patient Data Vitals - Most Recent: Last Vital Signs Temp 36.3 C 02/19/20 11:00 Pulse 72 02/19/20 11:00 Resp 18 02/19/20 11:00 BP 148/81 H 02/19/20 11:00 Pulse Ox 95 02/19/20 11:00 Orthostatic Blood Pressure [ 200/88 Sitting] Orthostatic Blood Pressure [ 170/88 Standing] Orthostatic Blood Pressure [ 153/90 Supine] Weight - Most Recent: 65.136 kg I&O - Last 24 Hours: Intake & Output 02/18/20 02/19/20 02/19/20 22:59 06:59 14:59 Intake Total 880 440 Output Total 600 Balance 280 440 Lab Results Last 24 Hours: Laboratory Results - last 24 hr 02/18/20 02/19/20 02/19/20 Range/Units 18:26 06:00 06:00 WBC 7.48 (4.0-11.0) K/uL RBC 4.41 (4.30-5.90) M/uL Hgb 13.6 (12.0-16.0) g/dL Hct 42.0 (36.0-46.0) % MCV 95.2 (80.0-98.0) fL MCH 30.8 (27.0-32.0) pg MCHC 32.4 (31.0-37.0) g/dL RDW Std Deviation 43.1 (28.0-62.0) fl RDW Coeff of Nicci 13 (11.0-15.0) % Plt Count 239 (150-400) K/uL MPV 10.60 (7.40-12.00) fL Neut % (Auto) 56.8 (48.0-80.0) % Lymph % (Auto) 33.0 (16.0-40.0) % [place] % (Auto) 8.6 (0.0-15.0) % Eos % (Auto) 1.3 (0.0-7.0) % Baso % (Auto) 0.3 (0.0-1.5) % Neut # (Auto) 4.3 (1.4-5.7) K/uL Lymph # (Auto) 2.5 H (0.6-2.4) K/uL [place] # (Auto) 0.6 (0.0-0.8) K/uL Eos # (Auto) 0.1 (0.0-0.7) K/uL Baso # (Auto) 0.0 (0.0-0.1) K/uL Nucleated RBC % 0.0 /100WBC Nucleated RBCs # 0 K/uL Sodium 142 (136-145) mmol/L Potassium 3.4 L (3.5-5.1) mmol/L Chloride 105 (98-107) mmol/L Carbon Dioxide 28.5 (21.0-32.0) mmol/L BUN 22 H (7.0-18.0) mg/dL Creatinine 1.1 H (0.6-1.0) mg/dL Est Cr Clr Drug Dosing 41.09 mL/min Estimated GFR (MDRD) 49.1 ml/min Glucose 229 H (74-106) mg/dL POC Glucose 324 H (60-110) mg/dL Calcium 8.6 (8.5-10.1) mg/dL Total Bilirubin 0.5 (0.2-1.0) mg/dL AST 14 L (15-37) IU/L ALT 16 (14-63) IU/L Alkaline Phosphatase 81 (46-116) U/L Total Protein 6.0 L (6.4-8.2) g/dL Albumin 2.8 L (3.4-5.0) g/dL Globulin 3.2 (2.6-4.0) g/dL Albumin/Globulin Ratio 0.9 (0.9-1.6) 02/19/20 02/19/20 Range/Units 06:20 10:01 WBC (4.0-11.0) K/uL RBC (4.30-5.90) M/uL Hgb (12.0-16.0) g/dL Hct (36.0-46.0) % MCV (80.0-98.0) fL MCH (27.0-32.0) pg MCHC (31.0-37.0) g/dL RDW Std Deviation (28.0-62.0) fl RDW Coeff of Nicci (11.0-15.0) % Plt Count (150-400) K/uL MPV (7.40-12.00) fL Neut % (Auto) (48.0-80.0) % Lymph % (Auto) (16.0-40.0) % [place] % (Auto) (0.0-15.0) % Eos % (Auto) (0.0-7.0) % Baso % (Auto) (0.0-1.5) % Neut # (Auto) (1.4-5.7) K/uL Lymph # (Auto) (0.6-2.4) K/uL [place] # (Auto) (0.0-0.8) K/uL Eos # (Auto) (0.0-0.7) K/uL Baso # (Auto) (0.0-0.1) K/uL Nucleated RBC % /100WBC Nucleated RBCs # K/uL Sodium (136-145) mmol/L Potassium (3.5-5.1) mmol/L Chloride (98-107) mmol/L Carbon Dioxide (21.0-32.0) mmol/L BUN (7.0-18.0) mg/dL Creatinine (0.6-1.0) mg/dL Est Cr Clr Drug Dosing mL/min Estimated GFR (MDRD) ml/min Glucose (74-106) mg/dL POC Glucose 226 H 238 H (60-110) mg/dL Calcium (8.5-10.1) mg/dL Total Bilirubin (0.2-1.0) mg/dL AST (15-37) IU/L ALT (14-63) IU/L Alkaline Phosphatase (46-116) U/L Total Protein (6.4-8.2) g/dL Albumin (3.4-5.0) g/dL Globulin (2.6-4.0) g/dL Albumin/Globulin Ratio (0.9-1.6) Med Orders - Current: Current Medications Acidophilus/Pectin (Acidophilus/Pectin, [place]) 1 tab PO DAILY [facility] Last Admin: 02/19/20 09:50 Dose: 1 tab Documented by: Amlodipine Besylate (Norvasc) 10 mg PO DAILY [facility] Last Admin: 02/19/20 09:50 Dose: 10 mg Documented by: Atorvastatin Calcium (Lipitor) 20 mg PO BEDTIME [facility] Last Admin: 02/18/20 20:03 Dose: 20 mg Documented by: Dextrose/Water (Dextrose 50% In Water) 50 ml IV ASDIRECTED PRN PRN Reason: Hypoglycemia Glucagon (Glucagen) 1 mg IM ASDIRECTED PRN PRN Reason: Hypoglycemia Ceftriaxone Sodium/Dextrose 1 (gm/ Premix) 50 mls @ 100 mls/hr IV Q24H [facility] Last Admin: 02/19/20 10:31 Dose: 100 mls/hr Documented by: Insulin Aspart (Novolog) 0 unit SUBCUT TIDAC [facility]; Protocol Last Admin: 02/19/20 10:04 Dose: 6 units Documented by: Labetalol HCl (Normodyne) 20 mg IVPUSH Q4H PRN; Protocol PRN Reason: Hypertension Last Admin: 02/18/20 01:25 Dose: 4 ml Documented by: Lisinopril (Prinivil) 20 mg PO DAILY [facility] Last Admin: 02/19/20 09:51 Dose: 20 mg Documented by: Melatonin (Melatonin) 3 mg PO BEDTIME PRN PRN Reason: Insomnia Last Admin: 02/18/20 20:03 Dose: 3 mg Documented by: Sodium Chloride (Saline Flush) 10 ml FLUSH ASDIRECTED PRN PRN Reason: Keep Vein Open Last Admin: 02/17/20 18:07 Dose: 10 ml Documented by: Sodium Chloride (Saline Flush) 2.5 ml FLUSH ASDIRECTED PRN PRN Reason: Keep Vein Open Last Admin: 02/17/20 18:07 Dose: 2.5 ml Documented by: Discontinued Medications Amlodipine Besylate (Norvasc) 5 mg PO ONETIME ONE Stop: 02/17/20 18:51 Last Admin: 02/17/20 19:09 Dose: 5 mg Documented by: Amlodipine Besylate (Norvasc) 5 mg PO ONETIME ONE Stop: 02/17/20 22:21 Last Admin: 02/17/20 23:07 Dose: 5 mg Documented by: Aspirin (Aspirin) 81 mg PO BEDTIME [facility] Last Admin: 02/17/20 21:29 Dose: Not Given Documented by: Diltiazem HCl (Diltiazem) 20 mg IVPUSH ONETIME ONE Stop: 02/18/20 01:27 Last Admin: 02/18/20 04:25 Dose: Not Given Documented by: Diphtheria/Tetanus/Acell Pertussis (Boostrix) 0.5 ml IM .ONCE ONE Stop: 02/17/20 19:06 Last Admin: 02/17/20 19:09 Dose: 0.5 ml Documented by: Sodium Chloride (Normal Saline) 1,000 mls @ 999 mls/hr IV ASDIRECTED [facility] Last Admin: 02/17/20 18:08 Dose: 999 mls/hr Documented by: Labetalol HCl (Normodyne) 20 mg IVPUSH ONETIME ONE; Protocol Stop: 02/17/20 19:47 Last Admin: 02/17/20 21:26 Dose: 20 mg Documented by: Lisinopril (Prinivil) 5 mg PO DAILY [facility] Last Admin: 02/18/20 09:01 Dose: 5 mg Documented by: Lisinopril (Prinivil) 15 mg PO DAILY [facility] Lisinopril (Prinivil) 15 mg PO ONETIME ONE Stop: 02/18/20 10:01 Last Admin: 02/18/20 09:48 Dose: 15 mg Documented by: Potassium Chloride (Potassium Chloride) 40 meq PO ONETIME ONE Stop: 02/19/20 09:06 Last Admin: 02/19/20 09:51 Dose: 40 meq Documented by: - Exam General: Alert, Oriented, Cooperative, No Acute Distress Lungs: Clear to Auscultation, Normal Respiratory Effort Cardiovascular: Regular Rate, Regular Rhythm GI/Abdominal Exam: Normal Bowel Sounds, Soft, Non-Tender Extremities: Normal Inspection, Normal Range of Motion Neurological: No New Focal Deficit, Normal Speech, Normal Tone Sepsis Event Note - Evaluation Sepsis Screening Result: No Definite Risk - Focused Exam Vital Signs: Vital Signs Temp Pulse Resp BP BP Pulse Ox 02/19/20 11:00 36.3 C 72 18 148/81 H 95 02/19/20 09:51 125/66 02/19/20 09:50 125/66 02/19/20 07:31 36.4 C 83 16 155/69 H 97 02/19/20 04:00 36.5 C 80 18 158/93 H 96 - Problem List & Annotations (1) Falls SNOMED Code(s): 2417280, 673598866 Code(s): W19.XXXA - UNSPECIFIED FALL, INITIAL ENCOUNTER Status: Acute Current Visit: Yes (2) Diabetes mellitus, new onset SNOMED Code(s): 800661630, 167271058 Code(s): E11.9 - TYPE 2 DIABETES MELLITUS WITHOUT COMPLICATIONS Status: Acute Current Visit: Yes (3) Hypertensive urgency SNOMED Code(s): 591765069 Code(s): I16.0 - HYPERTENSIVE URGENCY Status: Acute Current Visit: Yes - Problem List Review Problem List Initiated/Reviewed/Updated: Yes - My Orders Last 24 Hours: My Active Orders 02/18/20 21:00 atorvaSTATin [Lipitor] 20 mg PO BEDTIME - Plan Plan:: 69 y/o F admitted for frequent falls, newly diagnosed HTN, and DM 1. UTI: -Leukocyte Estrace, + bacteria, on Rocephin 1 g/day 2. Uncontrolled hypertension: BP better today Came in with hypertensive urgency, no end organ failure Labetalol 20 mg PRN for SBP>180 lisinopril 20 3. Uncontrolled diabetes mellitus: Hemoglobin A1c of 10 Start SSI; will adjust based on sliding scale needs - May need home insulin 4. Hyperlipidemia: -Lipid panel, indicated hyperlipidemia with hypertriglyceridemia Start Atorvastatin 20, no aspirin as patient is allergic 5. Elevated TSH: Normal T4, elevated TSH of 13.7, therefore subclinical 6. Deconditioning: -PT for evaluation and treatment, patient is very deconditioned, may benefit for SNF placement, patient informed but so far isnt sure if she wants to go to [facility]. Anticipate 2-3 midnight stays
--- NOTE | 2020-02-19 13:36 | PCM.DCSUM1 ---
Discharge Summary - Discharge Data Discharge Date: 02/19/20 Discharge Disposition: Home, Self-Care 01 Condition: Good - Referral to Home Health Primary Care Physician: PCP None - Discharge Diagnosis/Problem(s) (1) Falls SNOMED Code(s): 4129597, 162853234 ICD Code: W19.XXXA - UNSPECIFIED FALL, INITIAL ENCOUNTER Status: Acute Current Visit: Yes (2) Diabetes mellitus, new onset SNOMED Code(s): 116204664, 016927354 ICD Code: E11.9 - TYPE 2 DIABETES MELLITUS WITHOUT COMPLICATIONS Status: Acute Current Visit: Yes (3) Hypertensive urgency SNOMED Code(s): 789631155 ICD Code: I16.0 - HYPERTENSIVE URGENCY Status: Acute Current Visit: Yes - Patient Summary/Data Consults: Consultations 02/17/20 18:47 Consult to Home Care [Consult to Home Health] [CONS] Routine 02/18/20 09:48 PT Evaluation and Treatment [CONS] Routine - Discharge Plan *PRESCRIPTION DRUG MONITORING PROGRAM REVIEWED*: Not Applicable *COPY OF PRESCRIPTION DRUG MONITORING REPORT IN PATIENT [place]: Not Applicable Home Medications: Home Meds . [No Known Home Meds] 02/17/20 [History] Forms: ED Department Discharge Referrals: Joshua Sims MD [Ordering Only Provider] - - Patient Data Vitals - Most Recent: Last Vital Signs Temp 36.3 C 02/19/20 11:00 Pulse 72 02/19/20 11:00 Resp 18 02/19/20 11:00 BP 148/81 H 02/19/20 11:00 Pulse Ox 95 02/19/20 11:00 Orthostatic Blood Pressure [ 200/88 Sitting] Orthostatic Blood Pressure [ 170/88 Standing] Orthostatic Blood Pressure [ 153/90 Supine] Weight - Most Recent: 65.136 kg I&O - Last 24 hours: Intake & Output 02/18/20 02/19/20 02/19/20 22:59 06:59 14:59 Intake Total 880 440 Output Total 600 Balance 280 440 Lab Results - Last 24 hrs: Laboratory Results - last 24 hr 02/18/20 02/19/20 02/19/20 Range/Units 18:26 06:00 06:00 WBC 7.48 (4.0-11.0) K/uL RBC 4.41 (4.30-5.90) M/uL Hgb 13.6 (12.0-16.0) g/dL Hct 42.0 (36.0-46.0) % MCV 95.2 (80.0-98.0) fL MCH 30.8 (27.0-32.0) pg MCHC 32.4 (31.0-37.0) g/dL RDW Std Deviation 43.1 (28.0-62.0) fl RDW Coeff of Nicci 13 (11.0-15.0) % Plt Count 239 (150-400) K/uL MPV 10.60 (7.40-12.00) fL Neut % (Auto) 56.8 (48.0-80.0) % Lymph % (Auto) 33.0 (16.0-40.0) % [place] % (Auto) 8.6 (0.0-15.0) % Eos % (Auto) 1.3 (0.0-7.0) % Baso % (Auto) 0.3 (0.0-1.5) % Neut # (Auto) 4.3 (1.4-5.7) K/uL Lymph # (Auto) 2.5 H (0.6-2.4) K/uL [place] # (Auto) 0.6 (0.0-0.8) K/uL Eos # (Auto) 0.1 (0.0-0.7) K/uL Baso # (Auto) 0.0 (0.0-0.1) K/uL Nucleated RBC % 0.0 /100WBC Nucleated RBCs # 0 K/uL Sodium 142 (136-145) mmol/L Potassium 3.4 L (3.5-5.1) mmol/L Chloride 105 (98-107) mmol/L Carbon Dioxide 28.5 (21.0-32.0) mmol/L BUN 22 H (7.0-18.0) mg/dL Creatinine 1.1 H (0.6-1.0) mg/dL Est Cr Clr Drug Dosing 41.09 mL/min Estimated GFR (MDRD) 49.1 ml/min Glucose 229 H (74-106) mg/dL POC Glucose 324 H (60-110) mg/dL Calcium 8.6 (8.5-10.1) mg/dL Total Bilirubin 0.5 (0.2-1.0) mg/dL AST 14 L (15-37) IU/L ALT 16 (14-63) IU/L Alkaline Phosphatase 81 (46-116) U/L Total Protein 6.0 L (6.4-8.2) g/dL Albumin 2.8 L (3.4-5.0) g/dL Globulin 3.2 (2.6-4.0) g/dL Albumin/Globulin Ratio 0.9 (0.9-1.6) 02/19/20 02/19/20 Range/Units 06:20 10:01 WBC (4.0-11.0) K/uL RBC (4.30-5.90) M/uL Hgb (12.0-16.0) g/dL Hct (36.0-46.0) % MCV (80.0-98.0) fL MCH (27.0-32.0) pg MCHC (31.0-37.0) g/dL RDW Std Deviation (28.0-62.0) fl RDW Coeff of Nicci (11.0-15.0) % Plt Count (150-400) K/uL MPV (7.40-12.00) fL Neut % (Auto) (48.0-80.0) % Lymph % (Auto) (16.0-40.0) % [place] % (Auto) (0.0-15.0) % Eos % (Auto) (0.0-7.0) % Baso % (Auto) (0.0-1.5) % Neut # (Auto) (1.4-5.7) K/uL Lymph # (Auto) (0.6-2.4) K/uL [place] # (Auto) (0.0-0.8) K/uL Eos # (Auto) (0.0-0.7) K/uL Baso # (Auto) (0.0-0.1) K/uL Nucleated RBC % /100WBC Nucleated RBCs # K/uL Sodium (136-145) mmol/L Potassium (3.5-5.1) mmol/L Chloride (98-107) mmol/L Carbon Dioxide (21.0-32.0) mmol/L BUN (7.0-18.0) mg/dL Creatinine (0.6-1.0) mg/dL Est Cr Clr Drug Dosing mL/min Estimated GFR (MDRD) ml/min Glucose (74-106) mg/dL POC Glucose 226 H 238 H (60-110) mg/dL Calcium (8.5-10.1) mg/dL Total Bilirubin (0.2-1.0) mg/dL AST (15-37) IU/L ALT (14-63) IU/L Alkaline Phosphatase (46-116) U/L Total Protein (6.4-8.2) g/dL Albumin (3.4-5.0) g/dL Globulin (2.6-4.0) g/dL Albumin/Globulin Ratio (0.9-1.6) Med Orders - Current: Current Medications Acidophilus/Pectin (Acidophilus/Pectin, [place]) 1 tab PO DAILY [facility] Last Admin: 02/19/20 09:50 Dose: 1 tab Documented by: Amlodipine Besylate (Norvasc) 10 mg PO DAILY [facility] Last Admin: 02/19/20 09:50 Dose: 10 mg Documented by: Atorvastatin Calcium (Lipitor) 20 mg PO BEDTIME [facility] Last Admin: 02/18/20 20:03 Dose: 20 mg Documented by: Dextrose/Water (Dextrose 50% In Water) 50 ml IV ASDIRECTED PRN PRN Reason: Hypoglycemia Glucagon (Glucagen) 1 mg IM ASDIRECTED PRN PRN Reason: Hypoglycemia Ceftriaxone Sodium/Dextrose 1 (gm/ Premix) 50 mls @ 100 mls/hr IV Q24H [facility] Last Admin: 02/19/20 10:31 Dose: 100 mls/hr Documented by: Insulin Aspart (Novolog) 0 unit SUBCUT TIDAC [facility]; Protocol Last Admin: 02/19/20 10:04 Dose: 6 units Documented by: Insulin Detemir (Levemir) 10 unit SUBCUT BEDTIME [facility] Labetalol HCl (Normodyne) 20 mg IVPUSH Q4H PRN; Protocol PRN Reason: Hypertension Last Admin: 02/18/20 01:25 Dose: 4 ml Documented by: Lisinopril (Prinivil) 20 mg PO DAILY [facility] Last Admin: 02/19/20 09:51 Dose: 20 mg Documented by: Melatonin (Melatonin) 3 mg PO BEDTIME PRN PRN Reason: Insomnia Last Admin: 02/18/20 20:03 Dose: 3 mg Documented by: Sodium Chloride (Saline Flush) 10 ml FLUSH ASDIRECTED PRN PRN Reason: Keep Vein Open Last Admin: 02/17/20 18:07 Dose: 10 ml Documented by: Sodium Chloride (Saline Flush) 2.5 ml FLUSH ASDIRECTED PRN PRN Reason: Keep Vein Open Last Admin: 02/17/20 18:07 Dose: 2.5 ml Documented by: Discontinued Medications Amlodipine Besylate (Norvasc) 5 mg PO ONETIME ONE Stop: 02/17/20 18:51 Last Admin: 02/17/20 19:09 Dose: 5 mg Documented by: Amlodipine Besylate (Norvasc) 5 mg PO ONETIME ONE Stop: 02/17/20 22:21 Last Admin: 02/17/20 23:07 Dose: 5 mg Documented by: Aspirin (Aspirin) 81 mg PO BEDTIME [facility] Last Admin: 02/17/20 21:29 Dose: Not Given Documented by: Diltiazem HCl (Diltiazem) 20 mg IVPUSH ONETIME ONE Stop: 02/18/20 01:27 Last Admin: 02/18/20 04:25 Dose: Not Given Documented by: Diphtheria/Tetanus/Acell Pertussis (Boostrix) 0.5 ml IM .ONCE ONE Stop: 02/17/20 19:06 Last Admin: 02/17/20 19:09 Dose: 0.5 ml Documented by: Sodium Chloride (Normal Saline) 1,000 mls @ 999 mls/hr IV ASDIRECTED [facility] Last Admin: 02/17/20 18:08 Dose: 999 mls/hr Documented by: Labetalol HCl (Normodyne) 20 mg IVPUSH ONETIME ONE; Protocol Stop: 02/17/20 19:47 Last Admin: 02/17/20 21:26 Dose: 20 mg Documented by: Lisinopril (Prinivil) 5 mg PO DAILY [facility] Last Admin: 02/18/20 09:01 Dose: 5 mg Documented by: Lisinopril (Prinivil) 15 mg PO DAILY [facility] Lisinopril (Prinivil) 15 mg PO ONETIME ONE Stop: 02/18/20 10:01 Last Admin: 02/18/20 09:48 Dose: 15 mg Documented by: Potassium Chloride (Potassium Chloride) 40 meq PO ONETIME ONE Stop: 02/19/20 09:06 Last Admin: 02/19/20 09:51 Dose: 40 meq Documented by:
[2020-02-19] MEDS: atorvaSTATin 20 MG Tab PO SCH (20:46)
[2020-02-19] MEDS: Insulin Detemir 100 Units/ML 3 ML Pen SUBCUT SCH (21:25)
[2020-02-20] MEDS: Insulin Aspart 100 Units/ML 3 ML Pen SUBCUT SCH ×3 (06:36→17:40)
[2020-02-20 06:43] LABS: BLOOD UREA NITROGEN,BUN 18 mg/dL (7.0-18.0); CARBON DIOXIDE,CO2 25.7 mmol/L (21.0-32.0); CHLORIDE,CL 103 mmol/L (98-107); GLUCOSE RANDOM 194 mg/dL (74-106); POTASSIUM,K 3.8 mmol/L (3.5-5.1); SODIUM,NA 136 mmol/L (136-145)
[2020-02-20] MEDS: Lisinopril 10 MG Tab PO SCH (08:25)
[2020-02-20] MEDS: amLODIPine 5 MG Tab PO SCH (08:27)
[2020-02-20] MEDS: Acidophilus with Citrus Pectin Tab PO SCH (09:40)
--- NOTE | 2020-02-20 09:49 | PCM.PN ---
- General Info Date of Service: 02/20/20 Admission Dx/Problem (Free Text): Admission Diagnosis/Problem Admission Diagnosis/Problem Fall Subjective Update: Patient is a 69-year-old female, admitted for increased weakness, fatigue and significant hypertension. There were no overnight events, this morning states she feels little better. Denies any fever cough, chills, or pain. Patient states she still unsteady on her feet. Has remained incontinent for both stool and urine, refuses to notify nursing despite being educated on skin breakdown and possible UTIs. She has also been refusing her SCDs. Has been given melatonin at night for her restlessness and did sleep better. Functional Status: Reports: Tolerating Diet, Urinating - Review of Systems General: Reports: No Symptoms HEENT: Reports: No Symptoms Pulmonary: Reports: No Symptoms Cardiovascular: Reports: No Symptoms Gastrointestinal: Reports: No Symptoms Genitourinary: Reports: No Symptoms Musculoskeletal: Reports: No Symptoms Skin: Reports: No Symptoms Neurological: Reports: No Symptoms Psychiatric: Reports: No Symptoms - Patient Data Vitals - Most Recent: Last Vital Signs Temp 97.6 F 02/20/20 04:29 Pulse 84 02/20/20 04:29 Resp 17 02/20/20 04:29 BP 129/66 02/20/20 08:27 Pulse Ox 97 02/20/20 04:29 Orthostatic Blood Pressure [ 200/88 Sitting] Orthostatic Blood Pressure [ 170/88 Standing] Orthostatic Blood Pressure [ 153/90 Supine] Weight - Most Recent: 143 lb 9.6 oz I&O - Last 24 Hours: Intake & Output 02/19/20 02/20/20 02/20/20 22:59 06:59 14:59 Intake Total 240 858 Output Total 400 220 Balance -160 638 Lab Results Last 24 Hours: Laboratory Results - last 24 hr 02/19/20 02/19/20 02/19/20 Range/Units 06:20 10:01 14:10 WBC (4.0-11.0) K/uL RBC (4.30-5.90) M/uL Hgb (12.0-16.0) g/dL Hct (36.0-46.0) % MCV (80.0-98.0) fL MCH (27.0-32.0) pg MCHC (31.0-37.0) g/dL RDW Std Deviation (28.0-62.0) fl RDW Coeff of Nicci (11.0-15.0) % Plt Count (150-400) K/uL MPV (7.40-12.00) fL Neut % (Auto) (48.0-80.0) % Lymph % (Auto) (16.0-40.0) % [place] % (Auto) (0.0-15.0) % Eos % (Auto) (0.0-7.0) % Baso % (Auto) (0.0-1.5) % Neut # (Auto) (1.4-5.7) K/uL Lymph # (Auto) (0.6-2.4) K/uL [place] # (Auto) (0.0-0.8) K/uL Eos # (Auto) (0.0-0.7) K/uL Baso # (Auto) (0.0-0.1) K/uL Nucleated RBC % /100WBC Nucleated RBCs # K/uL Sodium (136-145) mmol/L Potassium (3.5-5.1) mmol/L Chloride (98-107) mmol/L Carbon Dioxide (21.0-32.0) mmol/L BUN (7.0-18.0) mg/dL Creatinine (0.6-1.0) mg/dL Est Cr Clr Drug Dosing mL/min Estimated GFR (MDRD) ml/min Glucose (74-106) mg/dL POC Glucose 226 H 238 H 258 H (60-110) mg/dL Calcium (8.5-10.1) mg/dL 02/19/20 02/19/20 02/20/20 Range/Units 17:40 20:44 05:50 WBC 8.88 (4.0-11.0) K/uL RBC 4.57 (4.30-5.90) M/uL Hgb 14.1 (12.0-16.0) g/dL Hct 43.2 (36.0-46.0) % MCV 94.5 (80.0-98.0) fL MCH 30.9 (27.0-32.0) pg MCHC 32.6 (31.0-37.0) g/dL RDW Std Deviation 43.4 (28.0-62.0) fl RDW Coeff of Nicci 13 (11.0-15.0) % Plt Count 213 (150-400) K/uL MPV 11.50 (7.40-12.00) fL Neut % (Auto) 57.9 (48.0-80.0) % Lymph % (Auto) 34.0 (16.0-40.0) % [place] % (Auto) 6.2 (0.0-15.0) % Eos % (Auto) 1.7 (0.0-7.0) % Baso % (Auto) 0.2 (0.0-1.5) % Neut # (Auto) 5.1 (1.4-5.7) K/uL Lymph # (Auto) 3.0 H (0.6-2.4) K/uL [place] # (Auto) 0.6 (0.0-0.8) K/uL Eos # (Auto) 0.2 (0.0-0.7) K/uL Baso # (Auto) 0.0 (0.0-0.1) K/uL Nucleated RBC % 0.0 /100WBC Nucleated RBCs # 0 K/uL Sodium (136-145) mmol/L Potassium (3.5-5.1) mmol/L Chloride (98-107) mmol/L Carbon Dioxide (21.0-32.0) mmol/L BUN (7.0-18.0) mg/dL Creatinine (0.6-1.0) mg/dL Est Cr Clr Drug Dosing mL/min Estimated GFR (MDRD) ml/min Glucose (74-106) mg/dL POC Glucose 206 H 152 H (60-110) mg/dL Calcium (8.5-10.1) mg/dL 02/20/20 02/20/20 Range/Units 05:50 06:33 WBC (4.0-11.0) K/uL RBC (4.30-5.90) M/uL Hgb (12.0-16.0) g/dL Hct (36.0-46.0) % MCV (80.0-98.0) fL MCH (27.0-32.0) pg MCHC (31.0-37.0) g/dL RDW Std Deviation (28.0-62.0) fl RDW Coeff of Nicci (11.0-15.0) % Plt Count (150-400) K/uL MPV (7.40-12.00) fL Neut % (Auto) (48.0-80.0) % Lymph % (Auto) (16.0-40.0) % [place] % (Auto) (0.0-15.0) % Eos % (Auto) (0.0-7.0) % Baso % (Auto) (0.0-1.5) % Neut # (Auto) (1.4-5.7) K/uL Lymph # (Auto) (0.6-2.4) K/uL [place] # (Auto) (0.0-0.8) K/uL Eos # (Auto) (0.0-0.7) K/uL Baso # (Auto) (0.0-0.1) K/uL Nucleated RBC % /100WBC Nucleated RBCs # K/uL Sodium 136 (136-145) mmol/L Potassium 3.8 (3.5-5.1) mmol/L Chloride 103 (98-107) mmol/L Carbon Dioxide 25.7 (21.0-32.0) mmol/L BUN 18 (7.0-18.0) mg/dL Creatinine 0.9 (0.6-1.0) mg/dL Est Cr Clr Drug Dosing 50.23 mL/min Estimated GFR (MDRD) > 60.0 ml/min Glucose 194 H (74-106) mg/dL POC Glucose 200 H (60-110) mg/dL Calcium 8.6 (8.5-10.1) mg/dL Juanjose Results Last 24 Hours: Microbiology 02/18/20 09:40 Urine Culture - Final Urine, Clean Catch Escherichia Coli Normal Urogenital Martha Med Orders - Current: Current Medications Amlodipine Besylate (Norvasc) 10 mg PO DAILY [facility] Last Admin: 02/20/20 08:27 Dose: 10 mg Documented by: Atorvastatin Calcium (Lipitor) 20 mg PO BEDTIME [facility] Last Admin: 02/19/20 20:46 Dose: 20 mg Documented by: Dextrose/Water (Dextrose 50% In Water) 50 ml IV ASDIRECTED PRN PRN Reason: Hypoglycemia Glucagon (Glucagen) 1 mg IM ASDIRECTED PRN PRN Reason: Hypoglycemia Ceftriaxone Sodium/Dextrose 1 (gm/ Premix) 50 mls @ 100 mls/hr IV Q24H [facility] Last Admin: 02/19/20 10:31 Dose: 100 mls/hr Documented by: Insulin Aspart (Novolog) 0 unit SUBCUT TIDAC [facility]; Protocol Last Admin: 02/20/20 06:36 Dose: 6 units Documented by: Insulin Detemir (Levemir) 10 unit SUBCUT BEDTIME [facility] Last Admin: 02/19/20 21:25 Dose: Not Given Documented by: Labetalol HCl (Normodyne) 20 mg IVPUSH Q4H PRN; Protocol PRN Reason: Hypertension Last Admin: 02/18/20 01:25 Dose: 4 ml Documented by: Lisinopril (Prinivil) 20 mg PO DAILY [facility] Last Admin: 02/20/20 08:25 Dose: 20 mg Documented by: Melatonin (Melatonin) 3 mg PO BEDTIME PRN PRN Reason: Insomnia Last Admin: 02/18/20 20:03 Dose: 3 mg Documented by: Sodium Chloride (Saline Flush) 10 ml FLUSH ASDIRECTED PRN PRN Reason: Keep Vein Open Last Admin: 02/17/20 18:07 Dose: 10 ml Documented by: Sodium Chloride (Saline Flush) 2.5 ml FLUSH ASDIRECTED PRN PRN Reason: Keep Vein Open Last Admin: 02/17/20 18:07 Dose: 2.5 ml Documented by: Discontinued Medications Acidophilus/Pectin (Acidophilus/Pectin, [place]) 1 tab PO DAILY [facility] Last Admin: 02/20/20 09:40 Dose: Not Given Documented by: Amlodipine Besylate (Norvasc) 5 mg PO ONETIME ONE Stop: 02/17/20 18:51 Last Admin: 02/17/20 19:09 Dose: 5 mg Documented by: Amlodipine Besylate (Norvasc) 5 mg PO ONETIME ONE Stop: 02/17/20 22:21 Last Admin: 02/17/20 23:07 Dose: 5 mg Documented by: Aspirin (Aspirin) 81 mg PO BEDTIME [facility] Last Admin: 02/17/20 21:29 Dose: Not Given Documented by: Diltiazem HCl (Diltiazem) 20 mg IVPUSH ONETIME ONE Stop: 02/18/20 01:27 Last Admin: 02/18/20 04:25 Dose: Not Given Documented by: Diphtheria/Tetanus/Acell Pertussis (Boostrix) 0.5 ml IM .ONCE ONE Stop: 02/17/20 19:06 Last Admin: 02/17/20 19:09 Dose: 0.5 ml Documented by: Sodium Chloride (Normal Saline) 1,000 mls @ 999 mls/hr IV ASDIRECTED [facility] Last Admin: 02/17/20 18:08 Dose: 999 mls/hr Documented by: Insulin Detemir (Levemir) 10 unit SUBCUT BEDTIME [facility] Last Admin: 02/19/20 20:47 Dose: 10 units Documented by: Labetalol HCl (Normodyne) 20 mg IVPUSH ONETIME ONE; Protocol Stop: 02/17/20 19:47 Last Admin: 02/17/20 21:26 Dose: 20 mg Documented by: Lisinopril (Prinivil) 5 mg PO DAILY [facility] Last Admin: 02/18/20 09:01 Dose: 5 mg Documented by: Lisinopril (Prinivil) 15 mg PO DAILY [facility] Lisinopril (Prinivil) 15 mg PO ONETIME ONE Stop: 02/18/20 10:01 Last Admin: 02/18/20 09:48 Dose: 15 mg Documented by: Potassium Chloride (Potassium Chloride) 40 meq PO ONETIME ONE Stop: 02/19/20 09:06 Last Admin: 02/19/20 09:51 Dose: 40 meq Documented by: - Exam General: Alert, Oriented, Cooperative, No Acute Distress HEENT: Pupils Equal, Pupils Reactive, EOMI, Mucous Membr. Moist/[place] Neck: Supple, No JVD. No: Lymphadenopathy, Thyromegaly Lungs: Clear to Auscultation, Normal Respiratory Effort Cardiovascular: Regular Rate, Regular Rhythm, No Murmurs GI/Abdominal Exam: Normal Bowel Sounds, Soft, Non-Tender, No Organomegaly, No Distention, No Abnormal Bruit, No Mass, Pelvis Stable Back Exam: Normal Inspection, Full Range of Motion Extremities: Normal Inspection, Normal Range of Motion, No Pedal Edema, Normal Capillary Refill Peripheral Pulses: 2+: Radial (L), Radial (R), Dorsalis Pedis (L), Dorsalis Pedis (R) Skin: Warm, Dry, Intact Neurological: No New Focal Deficit Psy/Mental Status: Alert, Normal Affect, Normal Mood Sepsis Event Note - Evaluation Sepsis Screening Result: No Definite Risk - Focused Exam Vital Signs: Vital Signs Temp Pulse Resp BP BP Pulse Ox 02/20/20 08:27 129/66 02/20/20 08:25 129/66 02/20/20 04:29 97.6 F 84 17 153/76 H 97 02/20/20 00:30 97.3 F 73 16 166/73 H 95 - Problem List Review Problem List Initiated/Reviewed/Updated: Yes - My Orders Last 24 Hours: My Active Orders 02/19/20 09:00 lisinopriL [Prinivil] 20 mg PO DAILY 02/21/20 05:11 CBC WITH AUTO DIFF [HEME] AM 02/22/20 05:11 CBC WITH AUTO DIFF [HEME] AM - Plan Plan:: 69 y/o F admitted for frequent falls, newly diagnosed HTN, and DM 1. UTI: -Leukocyte Estrace, + bacteria, will continue Levaquin for 3 more days Asymptomatic, patient denies dysuria, increased frequency or urgency 2. Uncontrolled hypertension: Improved, 153/76 today Had come in with hypertensive urgency, no end organ failure Labetalol 20 mg PRN for SBP>180 Currently on lisinopril 20 3. Uncontrolled diabetes mellitus: Improved, 200 this morning Hemoglobin A1c of 10 Start SSI; will adjust based on sliding scale needs -We will start on Metformin prior to discharge, placed diabetic consult with diabetes education, as well as close follow-up will be needed with PCP to monitor and adjust medications accordingly. 4. Hyperlipidemia: -Lipid panel, indicated hyperlipidemia with hypertriglyceridemia Started Atorvastatin 20, no aspirin as patient is allergic, tolerating well, post discharge will need close follow-up with PCP. 5. Elevated TSH: Normal T4, elevated TSH of 13.7, therefore subclinical 6. Deconditioning: -PT for evaluation and treatment, patient is very deconditioned, may benefit for SNF placement, patient informed but so far isnt sure if she wants to go to [facility]. 7. Patient has been denying SCDs, is now in patient, therefore will start on Lovenox subcu 40 every 24 hours.
[2020-02-20] MEDS: cefTRIAXone 1 GM in Premix Bag 1 BAG IV SCH (10:42)
[2020-02-20] MEDS: Enoxaparin 40 MG/0.4 ML Syringe SUBCUT SCH (11:40)
[2020-02-20] MEDS: Levofloxacin 250 MG Tab PO SCH (12:37)
[2020-02-20] MEDS: Insulin Detemir 100 Units/ML 3 ML Pen SUBCUT SCH (22:00)
[2020-02-20] MEDS: atorvaSTATin 20 MG Tab PO SCH (22:00)
[2020-02-21] MEDS: Insulin Aspart 100 Units/ML 3 ML Pen SUBCUT SCH ×3 (07:24→18:01)
[2020-02-21] MEDS: Lisinopril 10 MG Tab PO SCH (08:45)
[2020-02-21] MEDS: amLODIPine 5 MG Tab PO SCH (08:45)
[2020-02-21] MEDS: Enoxaparin 40 MG/0.4 ML Syringe SUBCUT SCH (10:54)
[2020-02-21] MEDS: Levofloxacin 250 MG Tab PO SCH (11:59)
[2020-02-21] MEDS ORDERED: Lisinopril 10 MG Tab PO ONE (12:34)
--- NOTE | 2020-02-21 14:56 | PCM.PN ---
- General Info Date of Service: 02/21/20 Subjective Update: Patient is a 69-year-old female admitted for weakness and instability. There were no overnight events, patient states she is doing well this morning. Denies any shortness of breath, cough, fever, dysuria, leg pain, chest pain, headache. However she still requires significant assistance by the nursing staff therefore spoke to patient at bedside regarding [facility] for more support and care. Functional Status: Reports: Pain Controlled, Tolerating Diet - Review of Systems General: Reports: Weakness HEENT: Reports: No Symptoms Pulmonary: Reports: No Symptoms Cardiovascular: Reports: No Symptoms Gastrointestinal: Reports: No Symptoms Genitourinary: Reports: No Symptoms Musculoskeletal: Reports: No Symptoms Skin: Reports: No Symptoms Neurological: Reports: No Symptoms Psychiatric: Reports: No Symptoms - Patient Data Vitals - Most Recent: Last Vital Signs Temp 97.7 F 02/21/20 12:56 Pulse 112 H 02/21/20 12:56 Resp 16 02/21/20 12:56 BP 143/84 H 02/21/20 12:59 Pulse Ox 95 02/21/20 12:56 Orthostatic Blood Pressure [ 200/88 Sitting] Orthostatic Blood Pressure [ 170/88 Standing] Orthostatic Blood Pressure [ 153/90 Supine] Weight - Most Recent: 143 lb 9.6 oz I&O - Last 24 Hours: Intake & Output 02/20/20 02/21/20 02/21/20 22:59 06:59 14:59 Intake Total 500 490 Output Total 450 0 Balance 50 490 Lab Results Last 24 Hours: Laboratory Results - last 24 hr 02/20/20 02/20/20 02/21/20 Range/Units 17:29 22:11 05:25 WBC 8.05 (4.0-11.0) K/uL RBC 4.65 (4.30-5.90) M/uL Hgb 14.1 (12.0-16.0) g/dL Hct 43.9 (36.0-46.0) % MCV 94.4 (80.0-98.0) fL MCH 30.3 (27.0-32.0) pg MCHC 32.1 (31.0-37.0) g/dL RDW Std Deviation 43.0 (28.0-62.0) fl RDW Coeff of Nicci 13 (11.0-15.0) % Plt Count 257 (150-400) K/uL MPV 10.70 (7.40-12.00) fL Neut % (Auto) 52.3 (48.0-80.0) % Lymph % (Auto) 36.1 (16.0-40.0) % [place] % (Auto) 9.8 (0.0-15.0) % Eos % (Auto) 1.6 (0.0-7.0) % Baso % (Auto) 0.2 (0.0-1.5) % Neut # (Auto) 4.2 (1.4-5.7) K/uL Lymph # (Auto) 2.9 H (0.6-2.4) K/uL [place] # (Auto) 0.8 (0.0-0.8) K/uL Eos # (Auto) 0.1 (0.0-0.7) K/uL Baso # (Auto) 0.0 (0.0-0.1) K/uL Nucleated RBC % 0.0 /100WBC Nucleated RBCs # 0 K/uL POC Glucose 175 H 262 H (60-110) mg/dL Phosphorus (2.6-4.7) mg/dL Magnesium (1.8-2.4) mg/dL 02/21/20 02/21/20 02/21/20 Range/Units 05:25 05:59 11:46 WBC (4.0-11.0) K/uL RBC (4.30-5.90) M/uL Hgb (12.0-16.0) g/dL Hct (36.0-46.0) % MCV (80.0-98.0) fL MCH (27.0-32.0) pg MCHC (31.0-37.0) g/dL RDW Std Deviation (28.0-62.0) fl RDW Coeff of Nicci (11.0-15.0) % Plt Count (150-400) K/uL MPV (7.40-12.00) fL Neut % (Auto) (48.0-80.0) % Lymph % (Auto) (16.0-40.0) % [place] % (Auto) (0.0-15.0) % Eos % (Auto) (0.0-7.0) % Baso % (Auto) (0.0-1.5) % Neut # (Auto) (1.4-5.7) K/uL Lymph # (Auto) (0.6-2.4) K/uL [place] # (Auto) (0.0-0.8) K/uL Eos # (Auto) (0.0-0.7) K/uL Baso # (Auto) (0.0-0.1) K/uL Nucleated RBC % /100WBC Nucleated RBCs # K/uL POC Glucose 172 H 236 H (60-110) mg/dL Phosphorus 4.0 (2.6-4.7) mg/dL Magnesium 2.0 (1.8-2.4) mg/dL Med Orders - Current: Current Medications Amlodipine Besylate (Norvasc) 10 mg PO DAILY [facility] Last Admin: 02/21/20 08:45 Dose: 10 mg Documented by: Atorvastatin Calcium (Lipitor) 20 mg PO BEDTIME [facility] Last Admin: 02/20/20 22:00 Dose: 20 mg Documented by: Dextrose/Water (Dextrose 50% In Water) 50 ml IV ASDIRECTED PRN PRN Reason: Hypoglycemia Enoxaparin Sodium (Lovenox) 40 mg SUBCUT Q24H [facility] Last Admin: 02/21/20 10:54 Dose: 40 mg Documented by: Glucagon (Glucagen) 1 mg IM ASDIRECTED PRN PRN Reason: Hypoglycemia Insulin Aspart (Novolog) 0 unit SUBCUT TIDAC [facility]; Protocol Last Admin: 02/21/20 11:59 Dose: 6 units Documented by: Insulin Detemir (Levemir) 10 unit SUBCUT BEDTIME [facility] Last Admin: 02/20/20 22:00 Dose: 10 units Documented by: Labetalol HCl (Normodyne) 20 mg IVPUSH Q4H PRN; Protocol PRN Reason: Hypertension Last Admin: 02/18/20 01:25 Dose: 4 ml Documented by: Levofloxacin (Levaquin) 250 mg PO Q24H [facility] Stop: 02/23/20 12:31 Last Admin: 02/21/20 11:59 Dose: 250 mg Documented by: Lisinopril (Prinivil) 40 mg PO DAILY [facility] Melatonin (Melatonin) 3 mg PO BEDTIME PRN PRN Reason: Insomnia Last Admin: 02/18/20 20:03 Dose: 3 mg Documented by: Sodium Chloride (Saline Flush) 10 ml FLUSH ASDIRECTED PRN PRN Reason: Keep Vein Open Last Admin: 02/17/20 18:07 Dose: 10 ml Documented by: Sodium Chloride (Saline Flush) 2.5 ml FLUSH ASDIRECTED PRN PRN Reason: Keep Vein Open Last Admin: 02/17/20 18:07 Dose: 2.5 ml Documented by: Discontinued Medications Acidophilus/Pectin (Acidophilus/Pectin, [place]) 1 tab PO DAILY [facility] Last Admin: 02/20/20 09:40 Dose: Not Given Documented by: Amlodipine Besylate (Norvasc) 5 mg PO ONETIME ONE Stop: 02/17/20 18:51 Last Admin: 02/17/20 19:09 Dose: 5 mg Documented by: Amlodipine Besylate (Norvasc) 5 mg PO ONETIME ONE Stop: 02/17/20 22:21 Last Admin: 02/17/20 23:07 Dose: 5 mg Documented by: Aspirin (Aspirin) 81 mg PO BEDTIME [facility] Last Admin: 02/17/20 21:29 Dose: Not Given Documented by: Diltiazem HCl (Diltiazem) 20 mg IVPUSH ONETIME ONE Stop: 02/18/20 01:27 Last Admin: 02/18/20 04:25 Dose: Not Given Documented by: Diphtheria/Tetanus/Acell Pertussis (Boostrix) 0.5 ml IM .ONCE ONE Stop: 02/17/20 19:06 Last Admin: 02/17/20 19:09 Dose: 0.5 ml Documented by: Sodium Chloride (Normal Saline) 1,000 mls @ 999 mls/hr IV ASDIRECTED [facility] Last Admin: 02/17/20 18:08 Dose: 999 mls/hr Documented by: Ceftriaxone Sodium/Dextrose 1 (gm/ Premix) 50 mls @ 100 mls/hr IV Q24H [facility] Last Admin: 02/20/20 10:42 Dose: 100 mls/hr Documented by: Insulin Detemir (Levemir) 10 unit SUBCUT BEDTIME [facility] Last Admin: 02/19/20 20:47 Dose: 10 units Documented by: Labetalol HCl (Normodyne) 20 mg IVPUSH ONETIME ONE; Protocol Stop: 02/17/20 19:47 Last Admin: 02/17/20 21:26 Dose: 20 mg Documented by: Lisinopril (Prinivil) 5 mg PO DAILY [facility] Last Admin: 02/18/20 09:01 Dose: 5 mg Documented by: Lisinopril (Prinivil) 15 mg PO DAILY [facility] Lisinopril (Prinivil) 20 mg PO DAILY [facility] Last Admin: 02/21/20 08:45 Dose: 20 mg Documented by: Lisinopril (Prinivil) 15 mg PO ONETIME ONE Stop: 02/18/20 10:01 Last Admin: 02/18/20 09:48 Dose: 15 mg Documented by: Lisinopril (Prinivil) 20 mg PO ONETIME ONE Stop: 02/21/20 12:35 Last Admin: 02/21/20 12:59 Dose: 20 mg Documented by: Potassium Chloride (Potassium Chloride) 40 meq PO ONETIME ONE Stop: 02/19/20 09:06 Last Admin: 02/19/20 09:51 Dose: 40 meq Documented by: - Exam General: Alert, Oriented, Cooperative, No Acute Distress HEENT: Pupils Equal, Pupils Reactive, EOMI, Mucous Membr. Moist/[place] Neck: Supple Lungs: Clear to Auscultation, Normal Respiratory Effort Cardiovascular: Regular Rate, Regular Rhythm GI/Abdominal Exam: Normal Bowel Sounds, Soft, Non-Tender, No Organomegaly, No Distention, No Mass (Female) Exam: Normal External Exam, Normal Speculum Exam Extremities: Normal Inspection, Normal Range of Motion Peripheral Pulses: 2+: Radial (L), Radial (R), Dorsalis Pedis (L), Dorsalis Pedis (R) Skin: Warm, Dry Neurological: No New Focal Deficit Psy/Mental Status: Alert, Normal Affect, Normal Mood Sepsis Event Note - Evaluation Sepsis Screening Result: No Definite Risk - Focused Exam Vital Signs: Vital Signs Temp Pulse Resp BP BP BP Pulse Ox 02/21/20 12:59 143/84 H 02/21/20 12:56 97.7 F 112 H 16 143/84 H 95 02/21/20 08:45 171/78 H 02/21/20 08:25 97.2 F 70 16 171/78 H 93 L 02/21/20 04:00 97.1 F 81 16 153/74 H 97 - Problem List Review Problem List Initiated/Reviewed/Updated: Yes - My Orders Last 24 Hours: My Active Orders 02/22/20 05:11 CBC WITH AUTO DIFF [HEME] AM - Plan Plan:: 69 y/o F admitted for frequent falls, uncomplicated/asymptomatic UTI, newly diagnosed HTN, DM, and hyperlipidemia 1. UTI: -Leukocyte Estrace, + bacteria, found to have E. coli will continue Levaquin for 2 more days Asymptomatic, patient denies dysuria, increased frequency or urgency 2. Uncontrolled hypertension: 171/78 today, Continue amlodipine 10 mg, will increase lisinopril to 40 mg daily 3. Uncontrolled diabetes mellitus: 262 this morning Hemoglobin A1c of 10 SSI and 10 units Levemir at bedtime, will need diabetes education consult discuss home insulin regimen. - as well as close follow-up will be needed with PCP to monitor and adjust medications accordingly. 4. Hyperlipidemia: -Lipid panel, indicated hyperlipidemia with hypertriglyceridemia Started Atorvastatin 20, no aspirin as patient is allergic, tolerating well, post discharge will need close follow-up with PCP. 5. Elevated TSH: Normal T4, elevated TSH of 13.7, therefore subclinical 6. Deconditioning: -PT for evaluation and treatment; patient is very deconditioned, may benefit for SNF placement, patient informed of options such as [place] home where they could help rehabilitate her. We strongly encouraged her as well as discussed all the benefits received there. Patient is adamant and refuses however is open to home health which will provide monitoring, educating on new medication as well as helping with providing physical therapy for strengthening. 8. Difficulty swallowing lunch, therefore will get speech and swallow evaluation. 7. Patient has been denying SCDs, is now in patient, therefore will start on Lovenox subcu 40 every 24 hours.
[2020-02-21] MEDS: atorvaSTATin 20 MG Tab PO SCH (20:11)
[2020-02-21] MEDS: Insulin Detemir 100 Units/ML 3 ML Pen SUBCUT SCH (20:12)
[2020-02-21] MEDS: Melatonin 3 MG Tab PO PRN (21:08)
[2020-02-22 06:01] LABS: POTASSIUM,K 3.8 mmol/L (3.5-5.1)
[2020-02-22] MEDS: Insulin Aspart 100 Units/ML 3 ML Pen SUBCUT SCH ×2 (07:34→12:07)
[2020-02-22] MEDS: amLODIPine 5 MG Tab PO SCH (08:47)
[2020-02-22] MEDS ORDERED: Lisinopril 10 MG Tab PO SCH (09:00)
--- NOTE | 2020-02-22 10:22 | PCM.DCSUM1 ---
Discharge Summary - Hospital Course Brief History: 69-year-old female with h/o of hysterectomy 40 years back, who presents today from a fall from standing. Patient states she was walking towards her kitchen when she fell and scraped her arm. Patient not sure if she hit her head or not but denies any LOC. Patient denied pain, nausea vomiting , fever, chills, syncope. States she has been feeling her knees just give out sometimes and also is having some urinary incontinence for past 3 months. Denied any focal neurological deficits, denied, numbness, tingling, loss of sensation in perineum, or fecal incontinence. 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 Patient was found to be hypertensive with SBP in 200s, her blood sugars were high as well. Patient states she hasnt seen any physician for last few decades as she "doesnt like to see doctors" and takes no meds. She lives at home with her brother, per ER family was concerned about her falls. Patient was admitted for further management. Diagnosis: Stroke: No - Discharge Data Discharge Date: 02/22/20 Discharge Disposition: Home, Self-Care 01 Condition: Good - Referral to Home Health Primary Care Physician: PCP None - Patient Summary/Data Consults: Consultations 02/17/20 18:47 Consult to Home Care [Consult to Home Health] [CONS] Routine 02/18/20 09:48 PT Evaluation and Treatment [CONS] Routine 02/20/20 10:46 Consult to Maintenance Shop Clerk [Consult to Diabetic Nurse Specialist] [CONS] Routine 02/21/20 12:39 Consult to Speech Language Pathology [CODE ENFORCEMENT INSPECTOR Evaluation and Treatment] [CONS] Routine 02/22/20 08:40 Consult to Home Health [CONS] Routine Hospital Course: Patient was admitted with hypertensive urgency and UTI. Found to have underlying comorbidities, started on all appropriate medications. Evaluated by physical therapy, suggested patient is significantly deconditioned and will require a walker at home. Patient was encouraged several times to allow better care at rehab facility. Patient persistently declined and stated that she is comfortable with home health helping her with strengthening due to weakness as well as with her new medication regimen. - Patient Instructions Diet: Heart Healthy Diet, Diabetic Diet Activity: As Tolerated Showering/Bathing: May Shower Notify Provider of: Fever, Increased Pain, Swelling and Redness, Drainage, Nausea and/or Vomiting - Discharge Plan *PRESCRIPTION DRUG MONITORING PROGRAM REVIEWED*: Not Applicable *COPY OF PRESCRIPTION DRUG MONITORING REPORT IN PATIENT DAYANA: Not Applicable Prescriptions/Med Rec: metFORMIN [Glucophage] 500 mg PO BIDMEALS 15 Days #30 tablet levoFLOXacin [Levaquin] 250 mg PO Q24H 2 Days #2 tablet Insulin Detemir [Levemir] 10 unit SUBCUT BEDTIME 15 Days #1 pen atorvaSTATin [Lipitor] 20 mg PO BEDTIME 15 Days #15 tablet Melatonin 3 mg PO BEDTIME PRN 15 Days #15 tablet PRN Reason: Insomnia amLODIPine [Norvasc] 10 mg PO DAILY 15 Days #15 tablet lisinopriL [Prinivil] 40 mg PO DAILY 15 Days #15 tablet Home Medications: Home Meds Insulin Detemir [Levemir] 10 unit SUBCUT BEDTIME 15 Days #1 pen 02/22/20 [Rx] Melatonin 3 mg PO BEDTIME PRN 15 Days #15 tablet 02/22/20 [Rx] amLODIPine [Norvasc] 10 mg PO DAILY 15 Days #15 tablet 02/22/20 [Rx] atorvaSTATin [Lipitor] 20 mg PO BEDTIME 15 Days #15 tablet 02/22/20 [Rx] levoFLOXacin [Levaquin] 250 mg PO Q24H 2 Days #2 tablet 02/22/20 [Rx] lisinopriL [Prinivil] 40 mg PO DAILY 15 Days #15 tablet 02/22/20 [Rx] metFORMIN [Glucophage] 500 mg PO BIDMEALS 15 Days #30 tablet 02/22/20 [Rx] Oxygen Therapy Mode: Room Air Patient Handouts: Type 2 Diabetes Mellitus, Diagnosis, Adult, Understanding Your Risk for Falls, Hypertension, Adult, [id number] Referrals: Joshua Sims MD [Ordering Only Provider] - 02/28/20 2:30 pm - Discharge Summary/Plan Comment DC Time >30 min.: No Discharge Summary/Plan Comment: Patient was brought in for weakness and instability, treated for a UTI as well as newly diagnosed uncontrolled hypertension, uncontrolled diabetes mellitus, found to have hyperlipidemia. Started on all appropriate medications. Patient has been stabilized was encouraged several times to potentially relocate to a rehab facility however patient refused. Therefore facilitated home health. Patient has not seen a PCP in several decades. Was newly started on a diabetes regimen which will likely need to be adjusted and possibly even increased. Patient is to see PCP within a week to closely follow-up on all new medications started and lab work for glucose control. - Patient Data Vitals - Most Recent: Last Vital Signs Temp 97.4 F 02/22/20 08:15 Pulse 78 02/22/20 08:15 Resp 22 H 02/22/20 08:15 BP 133/66 02/22/20 08:47 Pulse Ox 95 02/22/20 08:15 Orthostatic Blood Pressure [ 200/88 Sitting] Orthostatic Blood Pressure [ 170/88 Standing] Orthostatic Blood Pressure [ 153/90 Supine] Weight - Most Recent: 143 lb 9.6 oz I&O - Last 24 hours: Intake & Output 02/21/20 02/22/20 02/22/20 22:59 06:59 14:59 Intake Total 550 200 Output Total 0 Balance 550 200 Lab Results - Last 24 hrs: Laboratory Results - last 24 hr 02/21/20 02/21/20 02/21/20 Range/Units 05:59 11:46 16:47 WBC (4.0-11.0) K/uL RBC (4.30-5.90) M/uL Hgb (12.0-16.0) g/dL Hct (36.0-46.0) % MCV (80.0-98.0) fL MCH (27.0-32.0) pg MCHC (31.0-37.0) g/dL RDW Std Deviation (28.0-62.0) fl RDW Coeff of Nicci (11.0-15.0) % Plt Count (150-400) K/uL MPV (7.40-12.00) fL Neut % (Auto) (48.0-80.0) % Lymph % (Auto) (16.0-40.0) % [place] % (Auto) (0.0-15.0) % Eos % (Auto) (0.0-7.0) % Baso % (Auto) (0.0-1.5) % Neut # (Auto) (1.4-5.7) K/uL Lymph # (Auto) (0.6-2.4) K/uL [place] # (Auto) (0.0-0.8) K/uL Eos # (Auto) (0.0-0.7) K/uL Baso # (Auto) (0.0-0.1) K/uL Nucleated RBC % /100WBC Nucleated RBCs # K/uL Sodium (136-145) mmol/L Potassium (3.5-5.1) mmol/L Chloride (98-107) mmol/L Carbon Dioxide (21.0-32.0) mmol/L BUN (7.0-18.0) mg/dL Creatinine (0.6-1.0) mg/dL Est Cr Clr Drug Dosing mL/min Estimated GFR (MDRD) ml/min Glucose (74-106) mg/dL POC Glucose 172 H 236 H 270 H (60-110) mg/dL Calcium (8.5-10.1) mg/dL Total Bilirubin (0.2-1.0) mg/dL AST (15-37) IU/L ALT (14-63) IU/L Alkaline Phosphatase (46-116) U/L Total Protein (6.4-8.2) g/dL Albumin (3.4-5.0) g/dL Globulin (2.6-4.0) g/dL Albumin/Globulin Ratio (0.9-1.6) 02/21/20 02/22/20 02/22/20 Range/Units 21:32 05:03 05:03 WBC 7.58 (4.0-11.0) K/uL RBC 4.73 (4.30-5.90) M/uL Hgb 14.5 (12.0-16.0) g/dL Hct 44.9 (36.0-46.0) % MCV 94.9 (80.0-98.0) fL MCH 30.7 (27.0-32.0) pg MCHC 32.3 (31.0-37.0) g/dL RDW Std Deviation 43.1 (28.0-62.0) fl RDW Coeff of Nicci 13 (11.0-15.0) % Plt Count 259 (150-400) K/uL MPV 10.50 (7.40-12.00) fL Neut % (Auto) 63.6 (48.0-80.0) % Lymph % (Auto) 26.1 (16.0-40.0) % [place] % (Auto) 8.7 (0.0-15.0) % Eos % (Auto) 1.3 (0.0-7.0) % Baso % (Auto) 0.3 (0.0-1.5) % Neut # (Auto) 4.8 (1.4-5.7) K/uL Lymph # (Auto) 2.0 (0.6-2.4) K/uL [place] # (Auto) 0.7 (0.0-0.8) K/uL Eos # (Auto) 0.1 (0.0-0.7) K/uL Baso # (Auto) 0.0 (0.0-0.1) K/uL Nucleated RBC % 0.0 /100WBC Nucleated RBCs # 0 K/uL Sodium 139 (136-145) mmol/L Potassium 3.8 (3.5-5.1) mmol/L Chloride 104 (98-107) mmol/L Carbon Dioxide 28.0 (21.0-32.0) mmol/L BUN 27 H (7.0-18.0) mg/dL Creatinine 1.0 (0.6-1.0) mg/dL Est Cr Clr Drug Dosing 45.20 mL/min Estimated GFR (MDRD) 54.8 ml/min Glucose 172 H (74-106) mg/dL POC Glucose 142 H (60-110) mg/dL Calcium 9.1 (8.5-10.1) mg/dL Total Bilirubin 0.5 (0.2-1.0) mg/dL AST 12 L (15-37) IU/L ALT 20 (14-63) IU/L Alkaline Phosphatase 84 (46-116) U/L Total Protein 6.4 (6.4-8.2) g/dL Albumin 2.9 L (3.4-5.0) g/dL Globulin 3.5 (2.6-4.0) g/dL Albumin/Globulin Ratio 0.8 L (0.9-1.6) 02/22/20 Range/Units 06:45 WBC (4.0-11.0) K/uL RBC (4.30-5.90) M/uL Hgb (12.0-16.0) g/dL Hct (36.0-46.0) % MCV (80.0-98.0) fL MCH (27.0-32.0) pg MCHC (31.0-37.0) g/dL RDW Std Deviation (28.0-62.0) fl RDW Coeff of Nicci (11.0-15.0) % Plt Count (150-400) K/uL MPV (7.40-12.00) fL Neut % (Auto) (48.0-80.0) % Lymph % (Auto) (16.0-40.0) % [place] % (Auto) (0.0-15.0) % Eos % (Auto) (0.0-7.0) % Baso % (Auto) (0.0-1.5) % Neut # (Auto) (1.4-5.7) K/uL Lymph # (Auto) (0.6-2.4) K/uL [place] # (Auto) (0.0-0.8) K/uL Eos # (Auto) (0.0-0.7) K/uL Baso # (Auto) (0.0-0.1) K/uL Nucleated RBC % /100WBC Nucleated RBCs # K/uL Sodium (136-145) mmol/L Potassium (3.5-5.1) mmol/L Chloride (98-107) mmol/L Carbon Dioxide (21.0-32.0) mmol/L BUN (7.0-18.0) mg/dL Creatinine (0.6-1.0) mg/dL Est Cr Clr Drug Dosing mL/min Estimated GFR (MDRD) ml/min Glucose (74-106) mg/dL POC Glucose 172 H (60-110) mg/dL Calcium (8.5-10.1) mg/dL Total Bilirubin (0.2-1.0) mg/dL AST (15-37) IU/L ALT (14-63) IU/L Alkaline Phosphatase (46-116) U/L Total Protein (6.4-8.2) g/dL Albumin (3.4-5.0) g/dL Globulin (2.6-4.0) g/dL Albumin/Globulin Ratio (0.9-1.6) Med Orders - Current: Current Medications Amlodipine Besylate (Norvasc) 10 mg PO DAILY [facility] Last Admin: 02/22/20 08:47 Dose: 10 mg Documented by: Atorvastatin Calcium (Lipitor) 20 mg PO BEDTIME [facility] Last Admin: 02/21/20 20:11 Dose: 20 mg Documented by: Dextrose/Water (Dextrose 50% In Water) 50 ml IV ASDIRECTED PRN PRN Reason: Hypoglycemia Enoxaparin Sodium (Lovenox) 40 mg SUBCUT Q24H [facility] Last Admin: 02/21/20 10:54 Dose: 40 mg Documented by: Glucagon (Glucagen) 1 mg IM ASDIRECTED PRN PRN Reason: Hypoglycemia Insulin Aspart (Novolog) 0 unit SUBCUT TIDAC [facility]; Protocol Last Admin: 02/22/20 07:34 Dose: 3 units Documented by: Insulin Detemir (Levemir) 10 unit SUBCUT BEDTIME [facility] Last Admin: 02/21/20 20:12 Dose: 10 units Documented by: Labetalol HCl (Normodyne) 20 mg IVPUSH Q4H PRN; Protocol PRN Reason: Hypertension Last Admin: 02/18/20 01:25 Dose: 4 ml Documented by: Levofloxacin (Levaquin) 250 mg PO Q24H [facility] Stop: 02/23/20 12:31 Last Admin: 02/21/20 11:59 Dose: 250 mg Documented by: Lisinopril (Prinivil) 40 mg PO DAILY [facility] Last Admin: 02/22/20 08:46 Dose: 40 mg Documented by: Melatonin (Melatonin) 3 mg PO BEDTIME PRN PRN Reason: Insomnia Last Admin: 02/21/20 21:08 Dose: 3 mg Documented by: Metformin HCl (Glucophage) 500 mg PO BIDMEALS [facility] Sodium Chloride (Saline Flush) 10 ml FLUSH ASDIRECTED PRN PRN Reason: Keep Vein Open Last Admin: 02/17/20 18:07 Dose: 10 ml Documented by: Sodium Chloride (Saline Flush) 2.5 ml FLUSH ASDIRECTED PRN PRN Reason: Keep Vein Open Last Admin: 02/17/20 18:07 Dose: 2.5 ml Documented by: Discontinued Medications Acidophilus/Pectin (Acidophilus/Pectin, [place]) 1 tab PO DAILY [facility] Last Admin: 02/20/20 09:40 Dose: Not Given Documented by: Amlodipine Besylate (Norvasc) 5 mg PO ONETIME ONE Stop: 02/17/20 18:51 Last Admin: 02/17/20 19:09 Dose: 5 mg Documented by: Amlodipine Besylate (Norvasc) 5 mg PO ONETIME ONE Stop: 02/17/20 22:21 Last Admin: 02/17/20 23:07 Dose: 5 mg Documented by: Aspirin (Aspirin) 81 mg PO BEDTIME [facility] Last Admin: 02/17/20 21:29 Dose: Not Given Documented by: Diltiazem HCl (Diltiazem) 20 mg IVPUSH ONETIME ONE Stop: 02/18/20 01:27 Last Admin: 02/18/20 04:25 Dose: Not Given Documented by: Diphtheria/Tetanus/Acell Pertussis (Boostrix) 0.5 ml IM .ONCE ONE Stop: 02/17/20 19:06 Last Admin: 02/17/20 19:09 Dose: 0.5 ml Documented by: Sodium Chloride (Normal Saline) 1,000 mls @ 999 mls/hr IV ASDIRECTED [facility] Last Admin: 02/17/20 18:08 Dose: 999 mls/hr Documented by: Ceftriaxone Sodium/Dextrose 1 (gm/ Premix) 50 mls @ 100 mls/hr IV Q24H [facility] Last Admin: 02/20/20 10:42 Dose: 100 mls/hr Documented by: Insulin Detemir (Levemir) 10 unit SUBCUT BEDTIME [facility] Last Admin: 02/19/20 20:47 Dose: 10 units Documented by: Labetalol HCl (Normodyne) 20 mg IVPUSH ONETIME ONE; Protocol Stop: 02/17/20 19:47 Last Admin: 02/17/20 21:26 Dose: 20 mg Documented by: Lisinopril (Prinivil) 5 mg PO DAILY [facility] Last Admin: 02/18/20 09:01 Dose: 5 mg Documented by: Lisinopril (Prinivil) 15 mg PO DAILY [facility] Lisinopril (Prinivil) 20 mg PO DAILY [facility] Last Admin: 02/21/20 08:45 Dose: 20 mg Documented by: Lisinopril (Prinivil) 15 mg PO ONETIME ONE Stop: 02/18/20 10:01 Last Admin: 02/18/20 09:48 Dose: 15 mg Documented by: Lisinopril (Prinivil) 20 mg PO ONETIME ONE Stop: 02/21/20 12:35 Last Admin: 02/21/20 12:59 Dose: 20 mg Documented by: Potassium Chloride (Potassium Chloride) 40 meq PO ONETIME ONE Stop: 02/19/20 09:06 Last Admin: 02/19/20 09:51 Dose: 40 meq Documented by:
[2020-02-22] MEDS: Enoxaparin 40 MG/0.4 ML Syringe SUBCUT SCH (11:12)
[2020-02-22] MEDS: Levofloxacin 250 MG Tab PO SCH (14:52)
[2020-02-22] MEDS ORDERED: metFORMIN 500 MG Tab PO SCH (17:00)
== END 2020-02-22 15:00 | disposition home health service (06) | DRG 690 ==
LOC: MW.ED 17:56 → MW.MS 19:02 → OBSVTOIN 02-19 13:24 → MW.MS 02-19 15:17
PROVIDERS: ADMIT Student in an Organized Health Care Education/Training Program; ATTEND Student in an Organized Health Care Education/Training Program
DX: E11.65 Type 2 diabetes mellitus with hyperglycemia (principal); N39.0 Urinary tract infection, site not specified; I16.0 Hypertensive urgency; H54.7 Unspecified visual loss; W18.39XA Other fall on same level, initial encounter; F17.200 Nicotine dependence, unspecified, uncomplicated; E11.9 Type 2 diabetes mellitus without complications; E78.5 Hyperlipidemia, unspecified; F17.210 Nicotine dependence, cigarettes, uncomplicated; R29.6 Repeated falls; E87.5 Hyperkalemia; R94.6 Abnormal results of thyroid function studies; Z72.3 Lack of physical exercise; Z23 Encounter for immunization; Z88.6 Allergy status to analgesic agent; Z91.018 Allergy to other foods; Z90.710 Acquired absence of both cervix and uterus; Z79.4 Long term (current) use of insulin; Z79.899 Other long term (current) drug therapy; Z20.828 Contact with and (suspected) exposure to other viral communicable diseases
CPT/HCPCS: 36415 ×3; 70450; 72125; 80048 ×2; 80053; 80061; 80076; 81001; 82962 ×6; 83036; 83735; 84100; 84439; 84443; 85025 ×3; 87086; 87088; 87186; 90471; 93005; 96374; 97161; 99285; A9270 ×12; J0696 ×2; J1815; J3490 ×2; J7030; U0002; 92610-GN; 96365; 96375; 96376; 97530-GP; G0378; J1650

== ENCOUNTER 2020-04-03 13:56 | Emergency (ER) | payer MEDICARE ==
--- NOTE | 2020-04-03 14:14 | EDM.PDOC ---
ED HPI GENERAL MEDICAL PROBLEM - General Chief Complaint: General Stated Complaint: FALL Time Seen by Provider: 04/03/20 13:58 - History of Present Illness INITIAL COMMENTS - FREE TEXT/NARRATIVE: 69-year-old female with history of hypertension diabetes and hyperlipidemia presents after a fall. Patient has had trouble compliant with her insulin regimen and has not been using it appropriately. She states that multiple people have showed her how to use her insulin pen in a different ways she cannot get them to work. Today she used her wheelchair to go out for a smoke on the back porch. After coming inside when trying to stand up she fell landing on her bottom. She denies any pain no head trauma she denies any headache neck pain back pain chest pain abdomen pain or extremity pain. She has had a number of intermittent falls throughout the last few weeks usually 2-3 a week. She says that she has trouble with leg weakness and though she has been using a walker at home and a wheelchair when she goes out sometimes her legs to give out and she falls. She also reports polyuria but denies dysuria or hematuria no chest pain or shortness of breath no fevers. No syncope or near syncope. Patient had admission here for similar presentation in January 2020 with associated severe hypertension at that time. She had not seen a doctor for decades and was found to have uncontrolled hypertension diabetes and hyperlipidemia. She was placed on appropriate medication she repeatedly declined rehab placement and was discharged home with a walker and home health. - Related Data Allergies Allergy/AdvReac Type Severity Reaction Status Date / Time coffee (Coffea arabica) Allergy Hives Verified 04/03/20 14:05 ibuprofen Allergy Hives Verified 04/03/20 14:05 Home Meds: Home Meds Insulin Detemir [Levemir] 10 unit SUBCUT BEDTIME 15 Days #1 pen 02/22/20 [Rx] Melatonin 3 mg PO BEDTIME PRN 15 Days #15 tablet 02/22/20 [Rx] amLODIPine [Norvasc] 10 mg PO DAILY 15 Days #15 tablet 02/22/20 [Rx] atorvaSTATin [Lipitor] 20 mg PO BEDTIME 15 Days #15 tablet 02/22/20 [Rx] lisinopriL [Prinivil] 40 mg PO DAILY 15 Days #15 tablet 02/22/20 [Rx] metFORMIN [Glucophage] 500 mg PO BIDMEALS 15 Days #30 tablet 02/22/20 [Rx] Insulin Detemir [Levemir Flextouch] 100 unit SQ BEDTIME 10 Days #1 insuln.pen 04/03/20 [Rx] amLODIPine Besylate [Amlodipine Besylate] 10 mg PO DAILY 30 Days #30 tablet 04/03/20 [Rx] atorvaSTATin [Lipitor] 20 mg PO BEDTIME 30 Days #30 tab 04/03/20 [Rx] lisinopriL [Lisinopril] 40 mg PO DAILY 30 Days #30 tablet 04/03/20 [Rx] metFORMIN HCl [Metformin HCl] 500 mg PO BIDMEALS 30 Days #60 tablet 04/03/20 [Rx] Past Medical History HEENT History: Reports: Impaired Vision Genitourinary History: Reports: None [employer] History: Reports: Endometriosis - Past Surgical History HEENT Surgical History: Reports: None Female Surgical History: Reports: Hysterectomy Social & Family History - Family History Family Medical History: No Pertinent Family History - Caffeine Use Caffeine Use: Reports: Soda ED ROS GENERAL - Review of Systems Review Of Systems: See Below Free Text/Narrative/Comment: General: Per HPI Skin: No rash. Eyes: No vision problems. ENT: No sore throat. Neck: No neck stiffness. Respiratory: No shortness of breath. Cardiac: No chest pain. Gastrointestinal: No nausea, vomiting or abdominal pain. Urinary: No dysuria. Musculoskeletal: No myalgias/arthralgias. Neurologic: No headache. ED EXAM, GENERAL - Physical Exam Exam: See Below Free Text/Narrative:: General Appearance: No acute distress, appears comfortable Skin: No rash HEENT: Normocephalic/atraumatic, sclera anicteric, mucous membranes dry Neck: Normal range of motion, no midline tenderness step-off or deformity Chest and Lungs: Bilateral breath sounds, clear to auscultation Cardiovascular: Regular rate and rhythm, no murmur Abdomen: Soft, non-tender Back: Normal, no midline tenderness step-off or deformity Musculoskeletal: No edema or tenderness, no focal tenderness swelling deformity or limitation in range of motion of bilateral ankles knees or hips wrists elbows or shoulders. Neurologic: Awake, alert, no obvious deficits, moving all extremities, 5 out of 5 strength in bilateral lower extremities and bilateral upper extremities Psychiatric: Appropriate, cooperative Course - Vital Signs Last Recorded V/S: Last Vital Signs Temp 97.6 F 04/03/20 14:01 Pulse 96 04/03/20 14:01 Resp 20 04/03/20 14:01 BP 156/84 H 04/03/20 14:01 Pulse Ox 95 04/03/20 14:01 - Orders/Labs/Meds Orders: Active Orders 24 hr Category Date Time Status Dextrose 50% in Water Med 04/03/20 14:42 Active 50 ml IV ASDIRECTED PRN Glucagon,Human Recombinant [GlucaGen] Med 04/03/20 14:42 Active 1 mg IM ASDIRECTED PRN Lactated Ringers [Ringers, Lactated] 1,000 ml Med 04/03/20 14:41 Active IV .BOLUS Medication Orders Dextrose/Water (Dextrose 50% In Water) 50 ml IV ASDIRECTED PRN PRN Reason: Hypoglycemia Glucagon (Glucagen) 1 mg IM ASDIRECTED PRN PRN Reason: Hypoglycemia Lactated Ringer's (Ringers, Lactated) 1,000 mls @ 999 mls/hr IV .BOLUS ONE Stop: 04/03/20 15:41 Last Admin: 04/03/20 14:49 Dose: 999 mls/hr Documented by: [email or web address] Labs: Laboratory Tests 04/03/20 04/03/20 04/03/20 Range/Units 13:50 13:50 14:29 WBC 6.69 (4.0-11.0) K/uL RBC 4.55 (4.30-5.90) M/uL Hgb 14.3 (12.0-16.0) g/dL Hct 42.4 (36.0-46.0) % MCV 93.2 (80.0-98.0) fL MCH 31.4 (27.0-32.0) pg MCHC 33.7 (31.0-37.0) g/dL RDW Std Deviation 42.8 (28.0-62.0) fl RDW Coeff of Nicci 13 (11.0-15.0) % Plt Count 254 (150-400) K/uL MPV 10.70 (7.40-12.00) fL Neut % (Auto) 63.0 (48.0-80.0) % Lymph % (Auto) 29.4 (16.0-40.0) % [place] % (Auto) 5.7 (0.0-15.0) % Eos % (Auto) 1.8 (0.0-7.0) % Baso % (Auto) 0.1 (0.0-1.5) % Neut # (Auto) 4.2 (1.4-5.7) K/uL Lymph # (Auto) 2.0 (0.6-2.4) K/uL [place] # (Auto) 0.4 (0.0-0.8) K/uL Eos # (Auto) 0.1 (0.0-0.7) K/uL Baso # (Auto) 0.0 (0.0-0.1) K/uL Nucleated RBC % 0.0 /100WBC Nucleated RBCs # 0 K/uL Sodium 143 (136-145) mmol/L Potassium 3.2 L (3.5-5.1) mmol/L Chloride 105 (98-107) mmol/L Carbon Dioxide 29.4 (21.0-32.0) mmol/L BUN 16 (7.0-18.0) mg/dL Creatinine 1.0 (0.6-1.0) mg/dL Est Cr Clr Drug Dosing TNP Estimated GFR (MDRD) 54.8 ml/min Glucose 320 H (74-106) mg/dL POC Glucose (60-110) mg/dL Calcium 8.1 L (8.5-10.1) mg/dL Total Bilirubin 0.5 (0.2-1.0) mg/dL AST 11 L (15-37) IU/L ALT 18 (14-63) IU/L Alkaline Phosphatase 99 (46-116) U/L Total Protein 6.3 L (6.4-8.2) g/dL Albumin 3.0 L (3.4-5.0) g/dL Globulin 3.3 (2.6-4.0) g/dL Albumin/Globulin Ratio 0.9 (0.9-1.6) Urine Color YELLOW Urine Appearance CLEAR Urine pH 6.0 (5.0-8.0) Ur Specific [place] 1.020 (1.001-1.035) Urine Protein NEGATIVE (NEGATIVE) mg/dL Urine Glucose (UA) 500 H (NEGATIVE) mg/dL Urine Ketones NEGATIVE (NEGATIVE) mg/dL Urine Occult Blood NEGATIVE (NEGATIVE) Urine Nitrite NEGATIVE (NEGATIVE) Urine Bilirubin NEGATIVE (NEGATIVE) Urine Urobilinogen 1.0 (<2.0) EU/dL Ur Leukocyte Esterase NEGATIVE (NEGATIVE) Urine RBC NONE SEEN (0-2/HPF) Urine WBC 2-3 (0-5/HPF) Ur Epithelial Cells OCCASIONAL (NONE-FEW) Amorphous Sediment RARE (NEGATIVE) Urine Bacteria FEW (NEGATIVE) Urine Mucus RARE (NONE-MOD) 04/03/20 04/03/20 Range/Units 14:51 15:28 WBC (4.0-11.0) K/uL RBC (4.30-5.90) M/uL Hgb (12.0-16.0) g/dL Hct (36.0-46.0) % MCV (80.0-98.0) fL MCH (27.0-32.0) pg MCHC (31.0-37.0) g/dL RDW Std Deviation (28.0-62.0) fl RDW Coeff of Nicci (11.0-15.0) % Plt Count (150-400) K/uL MPV (7.40-12.00) fL Neut % (Auto) (48.0-80.0) % Lymph % (Auto) (16.0-40.0) % [place] % (Auto) (0.0-15.0) % Eos % (Auto) (0.0-7.0) % Baso % (Auto) (0.0-1.5) % Neut # (Auto) (1.4-5.7) K/uL Lymph # (Auto) (0.6-2.4) K/uL [place] # (Auto) (0.0-0.8) K/uL Eos # (Auto) (0.0-0.7) K/uL Baso # (Auto) (0.0-0.1) K/uL Nucleated RBC % /100WBC Nucleated RBCs # K/uL Sodium (136-145) mmol/L Potassium (3.5-5.1) mmol/L Chloride (98-107) mmol/L Carbon Dioxide (21.0-32.0) mmol/L BUN (7.0-18.0) mg/dL Creatinine (0.6-1.0) mg/dL Est Cr Clr Drug Dosing Estimated GFR (MDRD) ml/min Glucose (74-106) mg/dL POC Glucose 303 H 278 H (60-110) mg/dL Calcium (8.5-10.1) mg/dL Total Bilirubin (0.2-1.0) mg/dL AST (15-37) IU/L ALT (14-63) IU/L Alkaline Phosphatase (46-116) U/L Total Protein (6.4-8.2) g/dL Albumin (3.4-5.0) g/dL Globulin (2.6-4.0) g/dL Albumin/Globulin Ratio (0.9-1.6) Urine Color Urine Appearance Urine pH (5.0-8.0) Ur Specific [place] (1.001-1.035) Urine Protein (NEGATIVE) mg/dL Urine Glucose (UA) (NEGATIVE) mg/dL Urine Ketones (NEGATIVE) mg/dL Urine Occult Blood (NEGATIVE) Urine Nitrite (NEGATIVE) Urine Bilirubin (NEGATIVE) Urine Urobilinogen (<2.0) EU/dL Ur Leukocyte Esterase (NEGATIVE) Urine RBC (0-2/HPF) Urine WBC (0-5/HPF) Ur Epithelial Cells (NONE-FEW) Amorphous Sediment (NEGATIVE) Urine Bacteria (NEGATIVE) Urine Mucus (NONE-MOD) Meds: Medications Generic Name Dose Route Start Last Admin Trade Name Freq PRN Reason Stop Dose Admin Dextrose/Water 50 ml 04/03/20 14:42 Dextrose 50% In Water IV ASDIRECTED PRN Hypoglycemia Glucagon 1 mg 04/03/20 14:42 Glucagen IM ASDIRECTED PRN Hypoglycemia Lactated Ringer's 1,000 mls @ 999 mls/hr 04/03/20 14:41 04/03/20 14:49 Ringers, Lactated IV 04/03/20 15:41 999 mls/hr .BOLUS ONE Administration Discontinued Medications Generic Name Dose Route Start Last Admin Trade Name Freq PRN Reason Stop Dose Admin Insulin Human Regular 4 unit 04/03/20 14:42 04/03/20 14:49 Novolin R IVPUSH 04/03/20 14:43 4 units ONETIME ONE Administration Protocol Potassium Chloride 40 meq 04/03/20 14:54 04/03/20 15:22 Potassium Chloride PO 04/03/20 14:55 40 meq ONETIME ONE Administration Departure - Departure Time of Disposition: 15:31 Disposition: Home, Self-Care 01 Condition: Good Clinical Impression: Hypokalemia, Hyperglycemia due to diabetes mellitus - Discharge Information *PRESCRIPTION DRUG MONITORING PROGRAM REVIEWED*: Not Applicable *COPY OF PRESCRIPTION DRUG MONITORING REPORT IN PATIENT DAYANA: Not Applicable Prescriptions: amLODIPine Besylate [Amlodipine Besylate] 10 mg PO DAILY 30 Days #30 tablet Insulin Detemir [Levemir Flextouch] 100 unit SQ BEDTIME 10 Days #1 insuln.pen atorvaSTATin [Lipitor] 20 mg PO BEDTIME 30 Days #30 tab lisinopriL [Lisinopril] 40 mg PO DAILY 30 Days #30 tablet metFORMIN HCl [Metformin HCl] 500 mg PO BIDMEALS 30 Days #60 tablet Instructions: Hyperglycemia, [id number] Referrals: Joshua Sims MD [Ordering Only Provider] - 3 Days Forms: ED Department Discharge Additional Instructions: You potassium was mildly low today. You were given a supplemental dose of potassium. It is important that you follow-up with your primary doctor to have your potassium rechecked. It is also very important that you follow-up with the parent educator so that they can ensure that you are taking your nightly insulin properly. Please call the number below tomorrow to arrange this. [facility] - Diabetes Education [address] [place] [address] The following information is given to patients seen in the emergency department who are being discharged to home. This information is to outline your options for follow-up care. We provide all patients seen in our emergency department with a follow-up referral. The need for follow-up, as well as the timing and circumstances, are variable depending upon the specifics of your emergency department visit. If you don't have a primary care physician on staff, we will provide you with a referral. We always advise you to contact your personal physician following an emergency department visit to inform them of the circumstance of the visit and for follow-up with them and/or the need for any referrals to a consulting specialist. The emergency department will also refer you to a specialist when appropriate. This referral assures that you have the opportunity for follow-up care with a specialist. All of these measure are taken in an effort to provide you with optimal care, which includes your follow-up. Under all circumstances we always encourage you to contact your private physician who remains a resource for coordinating your care. When calling for follow-up care, please make the office aware that this follow-up is from your recent emergency room visit. If for any reason you are refused follow-up, please contact the [facility] Emergency Department at and asked to speak to the emergency department charge nurse. Sepsis Event Note (ED) - Evaluation Sepsis Screening Result: No Definite Risk - Focused Exam Vital Signs: Vital Signs Temp Pulse Resp BP Pulse Ox 04/03/20 14:01 97.6 F 96 20 156/84 H 95 - My Orders Last 24 Hours: My Active Orders 04/03/20 14:41 Lactated Ringers [Ringers, Lactated] 1,000 ml IV .BOLUS 04/03/20 14:42 Dextrose 50% in Water 50 ml IV ASDIRECTED PRN Glucagon,Human Recombinant [GlucaGen] 1 mg IM ASDIRECTED PRN - Assessment/Plan Last 24 Hours: My Active Orders 04/03/20 14:41 Lactated Ringers [Ringers, Lactated] 1,000 ml IV .BOLUS 04/03/20 14:42 Dextrose 50% in Water 50 ml IV ASDIRECTED PRN Glucagon,Human Recombinant [GlucaGen] 1 mg IM ASDIRECTED PRN Assessment:: 69-year-old female presenting with what appears to be chronic deconditioning leading to a fall. The believe you can clear her head spine and extremities as well as chest abdomen pelvis from a traumatic standpoint no sign of injury is noted on close evaluation. Given her polyuria CBC CMP urinalysis been ordered to assess for UTI severe hyperglycemia etc. I suspect the polyuria is secondary to her diabetes. However, post void residual will be performed as well to assess for any suggestion of cauda equina syndrome. The patient does not have any lower extremity weakness or numbness that would suggest this finding. 1520: Patient's labs demonstrate hyperglycemia without ketosis white blood cell count normal UA with significant glucose as expected but no signs of infection. Minimal hypokalemia and this was repleted orally in the ER. Patient was also given a small dose of IV insulin and a liter of LR for hydration and to help dilute her sugar. Patient has run out of all of her medications but she does still have test strips and pen needles. I will send in refill [facility] her medications [facility]. We discussed the importance of her following up with the parent educator tomorrow so that we can ensure that she is using her insulin correctly. 1530: BG has improved to the 200s. Pt discharged with above follow-up.
[2020-04-03 14:36] LABS: BLOOD UREA NITROGEN,BUN 16 mg/dL (7.0-18.0); CARBON DIOXIDE,CO2 29.4 mmol/L (21.0-32.0); CHLORIDE,CL 105 mmol/L (98-107); GLUCOSE RANDOM 320 mg/dL (74-106); POTASSIUM,K 3.2 mmol/L (3.5-5.1); SODIUM,NA 143 mmol/L (136-145)
[2020-04-03] MEDS ORDERED: Lactated Ringers 1,000 ML IV ONE (14:41)
[2020-04-03] MEDS ORDERED: Glucagon,Human Recombinant 1 MG Vial IM PRN (14:42)
[2020-04-03] MEDS ORDERED: Insulin Regular, Human 100 Units/ML 10 ML Vial IVPUSH ONE (14:42)
[2020-04-03] MEDS ORDERED: 50% Dextrose in Water 50 ML Syringe IV PRN (14:42)
[2020-04-03] MEDS ORDERED: Potassium Chloride 10% 20 MEQ/15 ML Soln 30 ML UD Cup PO ONE (14:54)
== END 2020-04-03 15:54 | disposition home or self-care (01) ==
LOC: MW.ED 13:56
DX: E11.65 Type 2 diabetes mellitus with hyperglycemia (principal); E87.6 Hypokalemia; I10 Essential (primary) hypertension; E78.5 Hyperlipidemia, unspecified; F17.200 Nicotine dependence, unspecified, uncomplicated; Z79.4 Long term (current) use of insulin; Z79.899 Other long term (current) drug therapy; Z91.018 Allergy to other foods; Z88.6 Allergy status to analgesic agent
CPT/HCPCS: 36415; 80053; 81001; 82962; 85025; 99285; A9270; J7120; 99283; J1815-GY

== ENCOUNTER 2020-09-12 17:08 | Observation (INO) | payer MEDICARE ==
[2020-09-12] MEDS ORDERED: Sodium Chloride 0.9% 1,000 ML IV ONE (17:29)
[2020-09-12] MEDS ORDERED: Bacitracin Oint 1 GM U/D Packet TOP ONE (17:30)
[2020-09-12] MEDS ORDERED: Diphtheria,Pertussis(Acell),Tetanus Vaccine 0.5 ML Syringe IM ONE (17:30)
--- NOTE | 2020-09-12 17:51 | PCM.EKG ---
#1 Interpretation EKG Date: 09/12/20 Time: 17:47 Rhythm: NSR Rate (Beats/Min): 69 ST-T: Normal
--- NOTE | 2020-09-12 17:53 | CR ---
For Patients: As a result of the Century Cures Act, medical imaging exams and procedure reports are released immediately into your electronic medical record. You may view this report before your referring provider. If you have questions, please contact your health care provider. INDICATION: fall TECHNIQUE: Chest 1 view. COMPARISON: None. FINDINGS: Cardiovascular and mediastinum: Heart size and vasculature are normal in caliber and appearance. Mediastinum is within normal limits. Lungs and pleural space: Lungs are clear. No sign of infiltrate or mass. No sign of pleural effusion. No pneumothorax. Bones and soft tissues: No significant findings. IMPRESSION: Unremarkable chest. Dictated by: Mikhail Edwards MD @ 09/12/2020 17:51:30 (Electronically Signed)
[2020-09-12 18:30] LABS: BLOOD UREA NITROGEN,BUN 21 mg/dL (7.0-18.0); CARBON DIOXIDE,CO2 26.1 mmol/L (21.0-32.0); CHLORIDE,CL 102 mmol/L (98-107); GLUCOSE RANDOM 186 mg/dL (74-106); POTASSIUM,K 3.1 mmol/L (3.5-5.1); SODIUM,NA 141 mmol/L (136-145)
--- NOTE | 2020-09-12 18:37 | CR ---
Indication: Fall Technique: Two-views left elbow Comparison: No comparison Findings: Normal alignment. Olecranon spur. Possible elbow effusion. Soft tissue defect at the level of the elbow. No acute fractures seen. Impression: No acute fracture. Dictated by Britt Person MD @ 09/12/2020 6:34:[address] Britt Person @ Sep 12 2020 6:34PM
--- NOTE | 2020-09-12 18:41 | CT ---
INDICATION: Fall TECHNIQUE: CT head without contrast. COMPARISON: 02/17/2020 FINDINGS: CSF spaces: Within normal limits for age. Brain parenchyma: The stovall-white differentiation is normal. No sign of mass, hemorrhage, or midline shift. Periventricular white matter changes consistent chronic microvascular disease. Skull base and calvarium: The visualized paranasal sinuses and mastoid air cells demonstrate no acute or significant findings. The visualized orbits are grossly unremarkable. No skull fractures. IMPRESSION: Atraumatic appearance of the brain. Periventricular white matter changes consistent chronic microvascular disease. Please note that all CT scans at this facility use dose modulation, iterative reconstruction, and/or weight-based dosing when appropriate to reduce radiation dose to as low as reasonably achievable. Dictated by Mikhail Edwards MD @ 09/12/2020 6:39:[address] Mikhail Edwards @ Sep 12 2020 6:39PM
--- NOTE | 2020-09-12 19:29 | CR ---
Indication: Fall Technique: AP pelvis Comparison: No comparison Findings: Normal alignment. Along the superior aspect of the right sacrum there is slight cortical irregularity. No hip fractures or dislocations seen. Impression: Question cortical irregularity along the superior aspect the right sacrum consider CT imaging to evaluate for possible fracture. Dictated by Britt Person MD @ 09/12/2020 7:27:[address] Britt Person @ Sep 12 2020 7:27PM
--- NOTE | 2020-09-12 20:31 | CT ---
Indication: Fall. Sacral irregularity on x-ray Technique: A noncontrast CT scan of the pelvis Comparison: Plain films from the same date Findings: There is no evidence of an acute fracture or dislocation. Tiny femoral head osteophyte formation is noted. The hip joint spaces are otherwise preserved. The sacroiliac joints are patent. Post hysterectomy changes are seen. Scattered colonic diverticula are noted. Impression: No evidence of an acute fracture or dislocation. Please note that all CT scans at this facility use dose modulation, iterative reconstruction, and/or weight-based dosing when appropriate to reduce radiation dose to as low as reasonably achievable. Dictated by Kristofer Trimble MD @ 09/12/2020 8:29:[address] Kristofer Trimble @ Sep 12 2020 8:29PM
--- NOTE | 2020-09-12 20:57 | EDM.PDOC ---
ED HPI GENERAL MEDICAL PROBLEM - General Chief Complaint: General Stated Complaint: FALL Time Seen by Provider: 09/12/20 17:21 Source of Information: Reports: Patient History Limitations: Reports: No Limitations - History of Present Illness INITIAL COMMENTS - FREE TEXT/NARRATIVE: HISTORY AND PHYSICAL: History of present illness: Patient is a 70-year-old female who presents emergency room today's with concern of weakness and increased amount of falls. Patient states that she is already fallen twice today and has sustained an abrasion to her left elbow. Patient has unknown head injury with falls. Patient states that she has left lower extremity weakness that has been ongoing for the past 6 months and has [address] Dr. Asher and had "an MRI all over "and states that Dr. Asher "cannot find anything wrong". Patient states that over the course of the past 6 months, she has had an increase in falls secondary to the weakness. Patient states that typically she falls maybe once every several weeks but today has fallen twice and feels more weak today. Patient states that she lives at home with her brother who is in worse health and her and she is responsible for taking care of him. Patient states that she is also been incontinent of urine over the past 6 months but states that this is not new or changed. Patient denies any associated back pain. Patient denies fever, chills, chest pain, shortness of breath, or cough. Denies headache, neck stiff ness, change in vision, syncope, or near syncope. Denies nausea, vomiting, abdominal pain, diarrhea, constipation, or dysuria. Has not noted any blood in urine or stool. Patient has been eating and drinking appropriately. Review of systems: As per history of present illness and below otherwise all systems reviewed and negative. Past medical history: As per history of present illness and as reviewed below otherwise noncontributory. Surgical history: As per history of present illness and as reviewed below otherwise noncontributory. Social history: See social history for further information Family history: As per history of present illness and as reviewed below otherwise noncontributory. Physical exam: General: Patient is alert, oriented, and in no acute distress. Patient appears disheveled. Patient laying comfortably on exam table. Patient hypertensive 180s over 80, otherwise vitally stable and reviewed by me. HEENT: Atraumatic, normocephalic, pupils equal and reactive bilaterally, negative for conjunctival pallor or scleral icterus, mucous membranes moist, TMs normal bilaterally, throat clear, neck supple, nontender, trachea midline. No drooling or trismus noted. No meningeal signs. No hot potato voice noted. Lungs: Clear to auscultation, breath sounds equal bilaterally, chest nontender. Heart: S1S2, regular rate and rhythm without overt murmur Abdomen: Soft, nondistended, nontender. Negative for masses or hepatosplenomegaly. Negative for costovertebral tenderness. Pelvis: Stable nontender. Genitourinary: Deferred. Incontinent of urine. Rectal: Deferred. Skin: See extremity. Otherwise, intact, warm, dry. No lesions or rashes noted. Extremities: Skin tear of left elbow and forearm. Patient has full range of motion of complete bilateral upper extremities without pain or difficulty. Radial pulses grossly intact bilaterally with capillary refill less than 2 seconds. Patient has full range of motion of bilateral lower extremities without pain or difficulty but does have decreased strength of the left lower extremity in comparison to the right. Patient does use 1 assist to ambulate from the wheelchair to the bed. Otherwise, atraumatic, negative for cords or calf pain. Neurovascular unremarkable. Neuro: Awake, alert, oriented. Cranial nerves II through XII unremarkable. Cerebellum unremarkable. Motor and sensory unremarkable throughout. Exam nonfocal. Notes: Patient is a 70-year-old female who resents to the ED today with concern of worsening weakness secondary to left lower extremity weakness with falling x 2 today. Patient has been following with a neurologist, Dr. Asher for left lower extremity weakness and has received MRI spine and weakness has been ongoing for 6 months. Upon arrival to the ED, patient is noted to be hypertensive 180s over 80, otherwise vitally stable. Patient does have a skin tear of her left elbow which is unable to be repaired with sutures. Will clean this area with saline and chlorhexidine and apply bacitracin sterile dressing. Patient is also noted to be incontinent of urine and is foul-smelling on exam a nd unkept. Patient does have weakness with ambulation and does ambulate into the bed from wheelchair with one assist. On chart review, patient did sees an MRI of her thoracic, and lumbar spine on and cervical MRI performed on May 31, 2020. Patient states that her lower extremity weakness of the left side and urinary incontinence is not new. See radiology reports from these visits on file for further diagnostic impression. However, no acute findings or compression of the spinal cord. Will perform cardiac evaluation secondary to weakness and obtain imaging of patients elbow that has sustained the skin tear, 1Vpelvis, and head CT due to fall, unknown head injury See Dr. Estrada's dictation for specific EKG interpretation. However, normal sinus rhythm with a rate of [address] to T intervals. CBC unremarkable. CMP shows mild hypokalemia at 3.1 with mild elevation of BUN at 21. Glucose mildly elevated at 186. Otherwise mild derangements of CMP unremarkable. Troponin negative. Urinalysis clear of infection. Pelvic x-ray shows questionable cortical irregularity along the superior aspect of the right sacrum would consider CT imaging for further evaluation for fr acture. Pelvic CT shows no evidence of acute fracture or dislocation. Head CT shows atraumatic appearance of the brain. Periventricular white matter changes consistent with chronic microvascular disease. Elbow x-ray left shows no acute fracture Chest x-ray shows unremarkable. Upon reevaluation of patient, she has improvement of her blood pressure without therapeutics given today in the ED. Her blood pressure 145/80 without intervention. Given that patient has had an increase amount of falls, and has currently fallen twice with the inability to perform ADLs at home, patient is not safe to discharge to home. I did call and speak to Dr. Lujan, hospitalist on-call, and thoroughly discussed patient's case. Will admit to observation. As transferring to the floor, patient's blood pressure does go back up to 210s over 80s. Will provide 1 dose of labetalol here in the emergency room. Patient discharged to the floor in stable condition to Dr. Lujan's care. Diagnostics: EKG, CBC, CMP, UA, chest x-ray, troponin, pelvic x-ray, left elbow x-ray, head CT, COVID Therapeutics: Sterile dressing placed by nursing staff with bacitracin, normal saline, labetalol, tdap Impression: Ambulatory dysfunction with inability to perform ADLs Weakness, acute on chronic Hypokalemia, mild Left elbow injury Skin tear, left elbow Hypertension Fall Plan: Admit to observation to Dr. Lujan Definitive disposition and diagnosis as appropriate pending reevaluation and review of above. - Related Data Allergies Allergy/AdvReac Type Severity Reaction Status Date / Time coffee (Coffea arabica) Allergy Hives Verified 09/12/20 17:16 ibuprofen Allergy Hives Verified 09/12/20 17:16 Home Meds: Home Meds Insulin Detemir [Levemir] 10 unit SUBCUT BEDTIME 15 Days #1 pen 02/22/20 [Rx] Melatonin 3 mg PO BEDTIME PRN 15 Days #15 tablet 02/22/20 [Rx] amLODIPine [Norvasc] 10 mg PO DAILY 15 Days #15 tablet 02/22/20 [Rx] atorvaSTATin [Lipitor] 20 mg PO BEDTIME 15 Days #15 tablet 02/22/20 [Rx] lisinopriL [Prinivil] 40 mg PO DAILY 15 Days #15 tablet 02/22/20 [Rx] metFORMIN [Glucophage] 500 mg PO BIDMEALS 15 Days #30 tablet 02/22/20 [Rx] Insulin Detemir [Levemir Flextouch] 100 unit SQ BEDTIME 10 Days #1 insuln.pen 04/03/20 [Rx] amLODIPine Besylate [Amlodipine Besylate] 10 mg PO DAILY 30 Days #30 tablet 04/03/20 [Rx] atorvaSTATin [Lipitor] 20 mg PO BEDTIME 30 Days #30 tab 04/03/20 [Rx] lisinopriL [Lisinopril] 40 mg PO DAILY 30 Days #30 tablet 04/03/20 [Rx] metFORMIN HCl [Metformin HCl] 500 mg PO BIDMEALS 30 Days #60 tablet 04/03/20 [Rx] Past Medical History HEENT History: Reports: Impaired Vision Cardiovascular History: Reports: Hypertension Genitourinary History: Reports: None 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 ED EXAM, GENERAL - Physical Exam Exam: See Below (see dictation) Course - Vital Signs Last Recorded V/S: Last Vital Signs Temp 97.7 F 09/12/20 17:17 Pulse 71 09/12/20 22:49 Resp 20 09/12/20 18:45 BP 203/97 H 09/12/20 22:49 Pulse Ox 97 09/12/20 18:45 - Orders/Labs/Meds Orders: Active Orders 24 hr Category Date Time Status Cardiac Monitoring [RC] . DIRECTED Care 09/12/20 17:29 Active EKG Documentation Completion [RC] STAT Care 09/12/20 17:29 Active Vaccines to be Administered [RC] PER UNIT ROUTINE Care 09/12/20 17:30 Active Medication Orders Acetaminophen (Acetaminophen 325 Mg Tab) 650 mg PO Q4H PRN PRN Reason: Pain (Mild 1-3)/fever Albuterol/Ipratropium (Albuterol/Ipratropium 3.0-0.5 Mg/3 Ml Neb Soln) 3 ml NEB Q4HRRT PRN PRN Reason: Shortness Of Breath/wheezing Dextrose/Water (50% Dextrose In Water 50 Ml Syringe) 50 ml IVPUSH ASDIRECTED PRN PRN Reason: Hypoglycemia Glucagon (Glucagon,Human Recombinant 1 Mg Vial) 1 mg IM ASDIRECTED PRN PRN Reason: Hypoglycemia Heparin Sodium (Porcine) (Heparin Sodium 5,000 Units/Ml Vial) 5,000 units SUBCUT Q8H [facility] Lactated Ringer's (Ringers, Lactated) 1,000 mls @ 125 mls/hr IV ASDIRECTED [facility] Insulin Aspart (Insulin Aspart 100 Units/Ml 3 Ml Pen) 0 unit SUBCUT TIDAC [facility]; Protocol Ondansetron HCl (Ondansetron 4 Mg/2 Ml Sdv) 4 mg IVPUSH Q4H PRN PRN Reason: Nausea/Vomiting Pantoprazole Sodium (Pantoprazole 40 Mg Vial) 40 mg IV DAILY ODE[facility] Labs: Laboratory Tests 09/12/20 09/12/20 09/12/20 Range/Units 18:00 18:00 18:00 WBC 5.98 (4.0-11.0) K/uL RBC 4.56 (4.30-5.90) M/uL Hgb 14.4 (12.0-16.0) g/dL Hct 41.3 (36.0-46.0) % MCV 90.6 (80.0-98.0) fL MCH 31.6 (27.0-32.0) pg MCHC 34.9 (31.0-37.0) g/dL RDW Std Deviation 41.8 (28.0-62.0) fl RDW Coeff of Nicci 13 (11.0-15.0) % Plt Count 256 (150-400) K/uL MPV 10.80 (7.40-12.00) fL Neut % (Auto) 62.6 (48.0-80.0) % Lymph % (Auto) 30.1 (16.0-40.0) % [place] % (Auto) 6.0 (0.0-15.0) % Eos % (Auto) 1.0 (0.0-7.0) % Baso % (Auto) 0.3 (0.0-1.5) % Neut # (Auto) 3.7 (1.4-5.7) K/uL Lymph # (Auto) 1.8 (0.6-2.4) K/uL [place] # (Auto) 0.4 (0.0-0.8) K/uL Eos # (Auto) 0.1 (0.0-0.7) K/uL Baso # (Auto) 0.0 (0.0-0.1) K/uL Nucleated RBC % 0.0 /100WBC Nucleated RBCs # 0 K/uL Sodium 141 (136-145) mmol/L Potassium 3.1 L (3.5-5.1) mmol/L Chloride 102 (98-107) mmol/L Carbon Dioxide 26.1 (21.0-32.0) mmol/L BUN 21 H (7.0-18.0) mg/dL Creatinine 1.0 (0.6-1.0) mg/dL Est Cr Clr Drug Dosing 44.56 mL/min Estimated GFR (MDRD) 54.7 ml/min Glucose 186 H (74-106) mg/dL Calcium 8.3 L (8.5-10.1) mg/dL Magnesium 1.9 (1.8-2.4) mg/dL Total Bilirubin 0.5 (0.2-1.0) mg/dL AST 12 L (15-37) IU/L ALT 17 (14-63) IU/L Alkaline Phosphatase 86 (46-116) U/L Troponin I < 0.050 (0.000-0.056) ng/mL Total Protein 6.5 (6.4-8.2) g/dL Albumin 3.4 (3.4-5.0) g/dL Globulin 3.1 (2.6-4.0) g/dL Albumin/Globulin Ratio 1.1 (0.9-1.6) TSH, Ultra Sensitive (0.36-3.74) uIU/mL Urine Color Urine Appearance Urine pH (5.0-8.0) Ur Specific [place] (1.001-1.035) Urine Protein (NEGATIVE) mg/dL Urine Glucose (UA) (NEGATIVE) mg/dL Urine Ketones (NEGATIVE) mg/dL Urine Occult Blood (NEGATIVE) Urine Nitrite (NEGATIVE) Urine Bilirubin (NEGATIVE) Urine Urobilinogen (<2.0) EU/dL Ur Leukocyte Esterase (NEGATIVE) 09/12/20 09/12/20 Range/Units 18:00 18:42 WBC (4.0-11.0) K/uL RBC (4.30-5.90) M/uL Hgb (12.0-16.0) g/dL Hct (36.0-46.0) % MCV (80.0-98.0) fL MCH (27.0-32.0) pg MCHC (31.0-37.0) g/dL RDW Std Deviation (28.0-62.0) fl RDW Coeff of Nicci (11.0-15.0) % Plt Count (150-400) K/uL MPV (7.40-12.00) fL Neut % (Auto) (48.0-80.0) % Lymph % (Auto) (16.0-40.0) % [place] % (Auto) (0.0-15.0) % Eos % (Auto) (0.0-7.0) % Baso % (Auto) (0.0-1.5) % Neut # (Auto) (1.4-5.7) K/uL Lymph # (Auto) (0.6-2.4) K/uL [place] # (Auto) (0.0-0.8) K/uL Eos # (Auto) (0.0-0.7) K/uL Baso # (Auto) (0.0-0.1) K/uL Nucleated RBC % /100WBC Nucleated RBCs # K/uL Sodium (136-145) mmol/L Potassium (3.5-5.1) mmol/L Chloride (98-107) mmol/L Carbon Dioxide (21.0-32.0) mmol/L BUN (7.0-18.0) mg/dL Creatinine (0.6-1.0) mg/dL Est Cr Clr Drug Dosing mL/min Estimated GFR (MDRD) ml/min Glucose (74-106) mg/dL Calcium (8.5-10.1) mg/dL Magnesium (1.8-2.4) mg/dL Total Bilirubin (0.2-1.0) mg/dL AST (15-37) IU/L ALT (14-63) IU/L Alkaline Phosphatase (46-116) U/L Troponin I (0.000-0.056) ng/mL Total Protein (6.4-8.2) g/dL Albumin (3.4-5.0) g/dL Globulin (2.6-4.0) g/dL Albumin/Globulin Ratio (0.9-1.6) TSH, Ultra Sensitive 12.75 H (0.36-3.74) uIU/mL Urine Color YELLOW Urine Appearance CLEAR Urine pH 6.0 (5.0-8.0) Ur Specific [place] <= 1.005 (1.001-1.035) Urine Protein NEGATIVE (NEGATIVE) mg/dL Urine Glucose (UA) NEGATIVE (NEGATIVE) mg/dL Urine Ketones NEGATIVE (NEGATIVE) mg/dL Urine Occult Blood NEGATIVE (NEGATIVE) Urine Nitrite NEGATIVE (NEGATIVE) Urine Bilirubin NEGATIVE (NEGATIVE) Urine Urobilinogen 0.2 (<2.0) EU/dL Ur Leukocyte Esterase NEGATIVE (NEGATIVE) Meds: Medications Generic Name Dose Route Start Last Admin Trade Name Freq PRN Reason Stop Dose Admin Acetaminophen 650 mg 09/12/20 22:07 Acetaminophen 325 Mg Tab PO Q4H PRN Pain (Mild 1-3)/fever Albuterol/Ipratropium 3 ml 09/12/20 22:07 Albuterol/Ipratropium 3.0-0.5 Mg/3 Ml Neb Soln NEB Q4HRRT PRN Shortness Of Breath/wheezing Dextrose/Water 50 ml 09/12/20 22:11 50% Dextrose In Water 50 Ml Syringe IVPUSH ASDIRECTED PRN Hypoglycemia Glucagon 1 mg 09/12/20 22:11 Glucagon,Human Recombinant 1 Mg Vial IM ASDIRECTED PRN Hypoglycemia Heparin Sodium (Porcine) 5,000 units 09/12/20 22:15 Heparin Sodium 5,000 Units/Ml Vial SUBCUT Q8H [facility] Lactated Ringer's 1,000 mls @ 125 mls/hr 09/12/20 22:15 Ringers, Lactated IV ASDIRECTED [facility] Insulin Aspart 0 unit 09/13/20 07:30 Insulin Aspart 100 Units/Ml 3 Ml Pen SUBCUT TIDAC [facility] Protocol Ondansetron HCl 4 mg 09/12/20 22:07 Ondansetron 4 Mg/2 Ml Sdv IVPUSH Q4H PRN Nausea/Vomiting Pantoprazole Sodium 40 mg 09/13/20 09:00 Pantoprazole 40 Mg Vial IV DAILY O[facility] Discontinued Medications Generic Name Dose Route Start Last Admin Trade Name Freq PRN Reason Stop Dose Admin Bacitracin 2 dose 09/12/20 17:30 09/12/20 17:43 Bacitracin Oint 1 Gm U/D Packet TOP 09/12/20 17:31 2 dose ONETIME ONE Administration Diphtheria/Tetanus/Acell Pertussis 0.5 ml 09/12/20 17:30 09/12/20 17:44 Diphtheria,Pertussis(Acell),Tetanus Vaccine 0.5 Ml Syringe IM 09/12/20 17:31 0.5 ml .ONCE ONE Administration Sodium Chloride 1,000 mls @ 999 mls/hr 09/12/20 17:29 09/12/20 17:45 Normal Saline IV 09/12/20 18:29 999 mls/hr BOLUS ONE Administration Labetalol HCl 20 mg 09/12/20 22:44 09/12/20 22:56 Labetalol 100 Mg/20 Ml Mdv IVPUSH 09/12/20 22:45 20 mg ONETIME ONE Administration Protocol Potassium Chloride 40 meq 09/12/20 22:10 Potassium Chloride 20 Meq Tab.Er PO 09/12/20 22:11 ONETIME ONE Departure - Departure Time of Disposition: 21:54 Disposition: Refer to Observation Clinical Impression: Skin tear, Ambulatory dysfunction, Weakness, Hypokalemia Fall Qualifiers: Encounter type: initial encounter Qualified Code(s): W19.XXXA - Unspecified fall, initial encounter Injury of left elbow Qualifiers: Encounter type: initial encounter Qualified Code(s): S59.902A - Unspecified injury of left elbow, initial encounter Hypertension Qualifiers: Hypertension type: unspecified Qualified Code(s): I10 - Essential (primary) hypertension - Discharge Information Sepsis Event Note (ED) - Evaluation Sepsis Screening Result: No Definite Risk - Focused Exam Vital Signs: Vital Signs Temp Pulse Resp BP Pulse Ox 09/12/20 18:45 68 20 169/76 H 97 09/12/20 18:15 70 20 145/91 H 97 09/12/20 17:17 97.7 F 75 18 180/86 H 97 - My Orders Last 24 Hours: My Active Orders 09/12/20 17:29 Cardiac Monitoring [RC] . DIRECTED EKG Documentation Completion [RC] STAT 09/12/20 17:30 Vaccines to be Administered [RC] PER UNIT ROUTINE - Assessment/Plan Last 24 Hours: My Active Orders 09/12/20 17:29 Cardiac Monitoring [RC] . DIRECTED EKG Documentation Completion [RC] STAT 09/12/20 17:30 Vaccines to be Administered [RC] PER UNIT ROUTINE
[2020-09-12] MEDS ORDERED: Acetaminophen 325 MG Tab PO PRN (22:07)
[2020-09-12] MEDS ORDERED: Ondansetron 4 MG/2 ML SDV IVPUSH PRN (22:07)
[2020-09-12] MEDS ORDERED: Albuterol/Ipratropium 3.0-0.5 MG/3 ML Neb Soln NEB PRN (22:07)
[2020-09-12] MEDS ORDERED: Potassium Chloride 20 MEQ Tab.ER PO ONE (22:10)
[2020-09-12] MEDS ORDERED: 50% Dextrose in Water 50 ML Syringe IVPUSH PRN (22:11)
[2020-09-12] MEDS ORDERED: Glucagon,Human Recombinant 1 MG Vial IM PRN (22:11)
[2020-09-12] MEDS ORDERED: Heparin Sodium 5,000 Units/ML Vial SUBCUT SCH (22:15)
[2020-09-12] MEDS ORDERED: Lactated Ringers 1,000 ML IV SCH (22:15)
[2020-09-12] MEDS ORDERED: Labetalol 100 MG/20 ML MDV IVPUSH ONE ×2 (22:44→23:34)
[2020-09-13] MEDS ORDERED: amLODIPine 5 MG Tab PO ONE (00:03)
[2020-09-13] MEDS ORDERED: Lisinopril 10 MG Tab PO ONE (00:04)
[2020-09-13] MEDS: Insulin Aspart 100 Units/ML 3 ML Pen SUBCUT SCH ×3 (07:53→17:45)
[2020-09-13] MEDS: Heparin Sodium 5,000 Units/ML Vial SUBCUT SCH ×2 (08:00→18:10)
--- NOTE | 2020-09-13 08:00 | PCM.HP.2 ---
H&P History of Present Illness - General Date of Service: 09/13/20 Admit Problem/Dx: Admission Diagnosis/Problem Admission Diagnosis/Problem Ambulatory dysfunction Source of Information: Patient History Limitations: Reports: No Limitations - History of Present Illness Initial Comments - Free Text/Narative: This 70-year-old female with past medical history of hypertension, h yperlipidemia and diabetes presented to the ER with concerns of weakness and increased falls. She reports that she had fallen twice yesterday has an abrasion to her left elbow. She reports that when she is up walking she suddenly just has weakness to the left side and it gives out and she falls. Reports that she has been following with Dr. Asher over the past 6 months and has had multiple MRIs and attempt to diagnose cause of weakness. Patient reports that she is falling every once in a while but feels that the falls are now increasing as she has had 2 today and feels more weak. She lives with her brother at home who is also in poor health. Reports that she is also had urinary incontinence for over 6 months and reports this is not changed or new. She denies any fevers chills chest pain or palpitations. Denies any neck pain or head injury. Denies any abdominal pain. Denies any dysuria. Denies any constipation or diarrhea no black or bloody bowel movements. She denies any back pain. She does report that she is noncompliant with medications and appears that she has not taken her gotten medications from the pharmacy since March. She denies any alcohol use no recreational drug use but does confirm half a pack a day tobacco use. In the ER chest x-ray obtained which shows no acute cardiopulmonary process. Left elbow x-ray obtained due to fall. This reveals no acute fracture. Possible small elbow effusion. EKG sinus rhythm heart rate in the 70s no ST or T wave changes. Right bundle branch block noted. Head CT obtained which shows no traumatic injuries. No hemorrhage or mass. Reveals periventricular white matter changes consistent with microvascular disease. Pelvis x-ray obtained as well as CT which revealed no evidence of acute fracture or dislocation. No leukocytosis noted. Mild hypokalemia noted 3.1 BUN 21 creatinine 1.0 glucose mildly elevated 186. Troponin negative. TSH 12.75 T4 0.79. UA negative Covid swab negative. Patient treated with potassium. She was also noted to have significantly elevated blood pressure on arrival she was treated with labetalol x2 along with lisinopril and amlodipine. Patient will be admitted for weakness in left lower extremity weakness along with hypokalemia. PCP Dr. Sims, has seen Dr. Asher neurology. Upon chart review appears patient recently saw Dr. Asher and reviewed MRIs completed. Appears she likely has polyneuropathy secondary to noncompliance and treatment of blood pressure as well as diabetes. - Related Data Allergies/Adverse Reactions: Allergies Allergy/AdvReac Type Severity Reaction Status Date / Time aspirin Allergy Nausea and Verified 09/13/20 01:20 Vomiting codeine Allergy Shaking Verified 09/13/20 01:20 coffee (Coffea arabica) Allergy Nausea and Verified 09/13/20 01:20 Vomiting ibuprofen Allergy Nausea and Verified 09/13/20 01:20 Vomiting red beets Allergy Nausea and Uncoded 09/13/20 01:25 Vomiting Home Medications: Home Meds Insulin Detemir [Levemir] 10 unit SUBCUT BEDTIME 15 Days #1 pen 02/22/20 [Rx] Melatonin 3 mg PO BEDTIME PRN 15 Days #15 tablet 02/22/20 [Rx] lisinopriL [Prinivil] 40 mg PO DAILY 15 Days #15 tablet 02/22/20 [Rx] metFORMIN [Glucophage] 500 mg PO BIDMEALS 15 Days #30 tablet 02/22/20 [Rx] Insulin Detemir [Levemir Flextouch] 100 unit SQ BEDTIME 10 Days #1 insuln.pen 04/03/20 [Rx] amLODIPine Besylate [Amlodipine Besylate] 10 mg PO DAILY 30 Days #30 tablet 04/03/20 [Rx] atorvaSTATin [Lipitor] 20 mg PO BEDTIME 30 Days #30 tab 04/03/20 [Rx] Past Medical History HEENT History: Reports: Impaired Vision Other HEENT History: pt. wears glasses, not present with patient Cardiovascular History: Reports: High Cholesterol, Hypertension Genitourinary History: Reports: Urinary Incontinence [employer] History: Reports: Endometriosis Endocrine/Metabolic History: Reports: Diabetes, Type II - Infectious Disease History Infectious Disease History: Reports: Chicken Pox, Measles, Mumps - Past Surgical History HEENT Surgical History: Reports: None Social & Family History - Family History Family Medical History: No Pertinent Family History Cardiac: Reports: High Cholesterol, Hypertension Endocrine/Metabolic: Reports: Diabetes, type II - Tobacco Use Tobacco Use Status *Q: Current Every Day Tobacco User Years of Tobacco use: 50 Packs/Tins Daily: 0.5 - Caffeine Use Caffeine Use: Reports: Soda - Recreational Drug Use Recreational Drug Use: No H&P Review of Systems - Review of Systems: Review Of Systems: See Below General: Reports: Weakness (Mainly left lower extremity from the hip down she reports). Denies: Fever, Chills HEENT: Reports: No Symptoms. Denies: Headaches, Sinus Congestion, Sore Throat Pulmonary: Reports: No Symptoms. Denies: Shortness of Breath Cardiovascular: Reports: No Symptoms. Denies: Chest Pain Gastrointestinal: Reports: No Symptoms. Denies: Abdominal Pain, Decreased Appetite, Nausea, Vomiting Genitourinary: Reports: No Symptoms. Denies: Dysuria, Frequency Musculoskeletal: Reports: No Symptoms Skin: Reports: No Symptoms Psychiatric: Reports: No Symptoms Neurological: Reports: Difficulty Walking, Weakness (Left lower extremity) Hematologic/Lymphatic: Reports: No Symptoms Immunologic: Reports: No Symptoms Exam - Exam Exam: See Below - Vital Signs Vital Signs: Last Vital Signs Temp 35.2 F L 09/13/20 07:42 Pulse 89 09/13/20 07:42 Resp 16 09/13/20 07:42 BP 127/79 09/13/20 07:42 Pulse Ox 93 L 09/13/20 07:42 Weight: 59.375 kg - Exam General: Alert, Oriented, Cooperative HEENT: Conjunctiva Clear, Hearing Intact, Posterior Pharynx Clear Lungs: Clear to Auscultation, Normal Respiratory Effort Cardiovascular: Regular Rate, Regular Rhythm GI/Abdominal Exam: Normal Bowel Sounds, Soft, Non-Tender Extremities: Normal Inspection, Normal Range of Motion, Non-Tender, No Pedal Edema Neurological: Cranial Nerves Intact Neuro Extensive - Mental Status: Alert, Oriented x3, Normal Mood/Affect, Normal Cognition, Memory Intact Neuro Extensive - Motor, Sensory, Reflexes: CN II-XII Intact, Normal Gait, Motor/Sensory Deficits (Mild weakness noted to left lower extremity 4/5) Psychiatric: Alert, Normal Affect, Normal Mood - Patient Data Lab Results Last 24 hrs: Laboratory Results - last 24 hr 09/12/20 09/12/20 09/12/20 Range/Units 18:00 18:00 18:00 WBC 5.98 (4.0-11.0) K/uL RBC 4.56 (4.30-5.90) M/uL Hgb 14.4 (12.0-16.0) g/dL Hct 41.3 (36.0-46.0) % MCV 90.6 (80.0-98.0) fL MCH 31.6 (27.0-32.0) pg MCHC 34.9 (31.0-37.0) g/dL RDW Std Deviation 41.8 (28.0-62.0) fl RDW Coeff of Nicci 13 (11.0-15.0) % Plt Count 256 (150-400) K/uL MPV 10.80 (7.40-12.00) fL Neut % (Auto) 62.6 (48.0-80.0) % Lymph % (Auto) 30.1 (16.0-40.0) % [place] % (Auto) 6.0 (0.0-15.0) % Eos % (Auto) 1.0 (0.0-7.0) % Baso % (Auto) 0.3 (0.0-1.5) % Neut # (Auto) 3.7 (1.4-5.7) K/uL Lymph # (Auto) 1.8 (0.6-2.4) K/uL [place] # (Auto) 0.4 (0.0-0.8) K/uL Eos # (Auto) 0.1 (0.0-0.7) K/uL Baso # (Auto) 0.0 (0.0-0.1) K/uL Nucleated RBC % 0.0 /100WBC Nucleated RBCs # 0 K/uL Sodium 141 (136-145) mmol/L Potassium 3.1 L (3.5-5.1) mmol/L Chloride 102 (98-107) mmol/L Carbon Dioxide 26.1 (21.0-32.0) mmol/L BUN 21 H (7.0-18.0) mg/dL Creatinine 1.0 (0.6-1.0) mg/dL Est Cr Clr Drug Dosing 44.56 mL/min Estimated GFR (MDRD) 54.7 ml/min Glucose 186 H (74-106) mg/dL POC Glucose (70-99) mg/dL Calcium 8.3 L (8.5-10.1) mg/dL Magnesium 1.9 (1.8-2.4) mg/dL Total Bilirubin 0.5 (0.2-1.0) mg/dL AST 12 L (15-37) IU/L ALT 17 (14-63) IU/L Alkaline Phosphatase 86 (46-116) U/L Troponin I < 0.050 (0.000-0.056) ng/mL Total Protein 6.5 (6.4-8.2) g/dL Albumin 3.4 (3.4-5.0) g/dL Globulin 3.1 (2.6-4.0) g/dL Albumin/Globulin Ratio 1.1 (0.9-1.6) Free T4 (0.76-1.46) ng/dL TSH, Ultra Sensitive (0.36-3.74) uIU/mL Urine Color Urine Appearance Urine pH (5.0-8.0) Ur Specific [place] (1.001-1.035) Urine Protein (NEGATIVE) mg/dL Urine Glucose (UA) (NEGATIVE) mg/dL Urine Ketones (NEGATIVE) mg/dL Urine Occult Blood (NEGATIVE) Urine Nitrite (NEGATIVE) Urine Bilirubin (NEGATIVE) Urine Urobilinogen (<2.0) EU/dL Ur Leukocyte Esterase (NEGATIVE) SARS-CoV-2 RNA (JOSH) (NEGATIVE) 09/12/20 09/12/20 09/12/20 Range/Units 18:00 18:42 22:55 WBC (4.0-11.0) K/uL RBC (4.30-5.90) M/uL Hgb (12.0-16.0) g/dL Hct (36.0-46.0) % MCV (80.0-98.0) fL MCH (27.0-32.0) pg MCHC (31.0-37.0) g/dL RDW Std Deviation (28.0-62.0) fl RDW Coeff of Nicci (11.0-15.0) % Plt Count (150-400) K/uL MPV (7.40-12.00) fL Neut % (Auto) (48.0-80.0) % Lymph % (Auto) (16.0-40.0) % [place] % (Auto) (0.0-15.0) % Eos % (Auto) (0.0-7.0) % Baso % (Auto) (0.0-1.5) % Neut # (Auto) (1.4-5.7) K/uL Lymph # (Auto) (0.6-2.4) K/uL [place] # (Auto) (0.0-0.8) K/uL Eos # (Auto) (0.0-0.7) K/uL Baso # (Auto) (0.0-0.1) K/uL Nucleated RBC % /100WBC Nucleated RBCs # K/uL Sodium (136-145) mmol/L Potassium (3.5-5.1) mmol/L Chloride (98-107) mmol/L Carbon Dioxide (21.0-32.0) mmol/L BUN (7.0-18.0) mg/dL Creatinine (0.6-1.0) mg/dL Est Cr Clr Drug Dosing mL/min Estimated GFR (MDRD) ml/min Glucose (74-106) mg/dL POC Glucose (70-99) mg/dL Calcium (8.5-10.1) mg/dL Magnesium (1.8-2.4) mg/dL Total Bilirubin (0.2-1.0) mg/dL AST (15-37) IU/L ALT (14-63) IU/L Alkaline Phosphatase (46-116) U/L Troponin I (0.000-0.056) ng/mL Total Protein (6.4-8.2) g/dL Albumin (3.4-5.0) g/dL Globulin (2.6-4.0) g/dL Albumin/Globulin Ratio (0.9-1.6) Free T4 0.79 (0.76-1.46) ng/dL TSH, Ultra Sensitive 12.75 H (0.36-3.74) uIU/mL Urine Color YELLOW Urine Appearance CLEAR Urine pH 6.0 (5.0-8.0) Ur Specific [place] <= 1.005 (1.001-1.035) Urine Protein NEGATIVE (NEGATIVE) mg/dL Urine Glucose (UA) NEGATIVE (NEGATIVE) mg/dL Urine Ketones NEGATIVE (NEGATIVE) mg/dL Urine Occult Blood NEGATIVE (NEGATIVE) Urine Nitrite NEGATIVE (NEGATIVE) Urine Bilirubin NEGATIVE (NEGATIVE) Urine Urobilinogen 0.2 (<2.0) EU/dL Ur Leukocyte Esterase NEGATIVE (NEGATIVE) SARS-CoV-2 RNA (JOSH) NEGATIVE (NEGATIVE) 09/13/20 Range/Units 06:37 WBC (4.0-11.0) K/uL RBC (4.30-5.90) M/uL Hgb (12.0-16.0) g/dL Hct (36.0-46.0) % MCV (80.0-98.0) fL MCH (27.0-32.0) pg MCHC (31.0-37.0) g/dL RDW Std Deviation (28.0-62.0) fl RDW Coeff of Nicci (11.0-15.0) % Plt Count (150-400) K/uL MPV (7.40-12.00) fL Neut % (Auto) (48.0-80.0) % Lymph % (Auto) (16.0-40.0) % [place] % (Auto) (0.0-15.0) % Eos % (Auto) (0.0-7.0) % Baso % (Auto) (0.0-1.5) % Neut # (Auto) (1.4-5.7) K/uL Lymph # (Auto) (0.6-2.4) K/uL [place] # (Auto) (0.0-0.8) K/uL Eos # (Auto) (0.0-0.7) K/uL Baso # (Auto) (0.0-0.1) K/uL Nucleated RBC % /100WBC Nucleated RBCs # K/uL Sodium (136-145) mmol/L Potassium (3.5-5.1) mmol/L Chloride (98-107) mmol/L Carbon Dioxide (21.0-32.0) mmol/L BUN (7.0-18.0) mg/dL Creatinine (0.6-1.0) mg/dL Est Cr Clr Drug Dosing mL/min Estimated GFR (MDRD) ml/min Glucose (74-106) mg/dL POC Glucose 232 H (70-99) mg/dL Calcium (8.5-10.1) mg/dL Magnesium (1.8-2.4) mg/dL Total Bilirubin (0.2-1.0) mg/dL AST (15-37) IU/L ALT (14-63) IU/L Alkaline Phosphatase (46-116) U/L Troponin I (0.000-0.056) ng/mL Total Protein (6.4-8.2) g/dL Albumin (3.4-5.0) g/dL Globulin (2.6-4.0) g/dL Albumin/Globulin Ratio (0.9-1.6) Free T4 (0.76-1.46) ng/dL TSH, Ultra Sensitive (0.36-3.74) uIU/mL Urine Color Urine Appearance Urine pH (5.0-8.0) Ur Specific [place] (1.001-1.035) Urine Protein (NEGATIVE) mg/dL Urine Glucose (UA) (NEGATIVE) mg/dL Urine Ketones (NEGATIVE) mg/dL Urine Occult Blood (NEGATIVE) Urine Nitrite (NEGATIVE) Urine Bilirubin (NEGATIVE) Urine Urobilinogen (<2.0) EU/dL Ur Leukocyte Esterase (NEGATIVE) SARS-CoV-2 RNA (JOSH) (NEGATIVE) Result Diagrams: 09/13/20 08:15 09/13/20 08:15 Sepsis Event Note - Evaluation Sepsis Screening Result: No Definite Risk - Focused Exam Vital Signs: Vital Signs Temp Pulse Resp BP BP Pulse Ox 09/13/20 07:42 35.2 F L 89 16 127/79 93 L 09/13/20 03:15 97.5 F 94 16 145/61 H 95 09/13/20 01:05 186/77 H 09/13/20 01:02 186/77 H 09/13/20 00:25 96.8 F L 75 18 186/77 H 95 09/13/20 00:01 80 188/90 H 09/12/20 23:34 82 15 203/92 H 95 09/12/20 22:49 71 203/97 H - Problem List (1) Falls SNOMED Code(s): 1342819, 419157767 ICD Code: W19.XXXA - UNSPECIFIED FALL, INITIAL ENCOUNTER Status: Acute Current Visit: Yes Qualifiers: Encounter type: initial encounter Qualified Code(s): W19.XXXA - Unspecified fall, initial encounter (2) Acute ischemic stroke SNOMED Code(s): 363544388, 554745111 ICD Code: I63.9 - CEREBRAL INFARCTION, UNSPECIFIED Status: Acute Current Visit: Yes (3) Hypokalemia SNOMED Code(s): 31603569 ICD Code: E87.6 - HYPOKALEMIA Status: Acute Current Visit: Yes (4) Ambulatory dysfunction SNOMED Code(s): 632209884 ICD Code: R26.2 - DIFFICULTY IN WALKING, NOT ELSEWHERE CLASSIFIED Status: Acute Current Visit: Yes (5) Type 2 diabetes mellitus, uncontrolled SNOMED Code(s): 910034006, 499922182 ICD Code: E11.65 - TYPE 2 DIABETES MELLITUS WITH HYPERGLYCEMIA Status: Chronic Current Visit: Yes Qualifiers: Glycemic state: with hyperglycemia Qualified Code(s): E11.65 - Type 2 diabetes mellitus with hyperglycemia (6) Hyperlipidemia SNOMED Code(s): 51490080 ICD Code: E78.5 - HYPERLIPIDEMIA, UNSPECIFIED Status: Chronic Current Visit: Yes Qualifiers: Hyperlipidemia type: mixed hyperlipidemia Qualified Code(s): E78.2 - Mixed hyperlipidemia (7) Hypertension SNOMED Code(s): 55251880 ICD Code: I10 - ESSENTIAL (PRIMARY) HYPERTENSION Status: Chronic Current Visit: Yes Qualifiers: Hypertension type: primary hypertension Qualified Code(s): I10 - Essential (primary) hypertension Problem List Initiated/Reviewed/Updated: Yes Orders Last 24hrs: Active Orders 24 hr Category Date Time Status Admission Status [Patient Status] [ADT] Stat ADT 09/12/20 22:02 Active Ambulate [RC] ASDIRECTED Care 09/12/20 22:07 Active Antiembolic Devices [RC] PER UNIT ROUTINE Care 09/12/20 22:08 Active Cardiac Monitoring [RC] . DIRECTED Care 09/12/20 17:29 Active Oxygen Therapy [RC] PRN Care 09/12/20 22:07 Active RT Aerosol Therapy [RC] ASDIRECTED Care 09/12/20 22:08 Active Telemetry Monitoring [Cardiac Monitoring] [RC] . Care 09/12/20 23:10 Active DIRECTED VTE/DVT Education [RC] PER UNIT ROUTINE Care 09/12/20 22:07 Active Vaccines to be Administered [RC] PER UNIT ROUTINE Care 09/12/20 17:30 Active Vital Signs [RC] Q4H Care 09/12/20 22:07 Active Consult to Physical Therapy [PT Evaluation and Cons 09/12/20 22:09 Active Treatment] [CONS] Stat Consult to Wound Care Services [CONS] Stat Cons 09/12/20 22:13 Active [place] [employer] Diet [DIET] Diet 09/13/20 Breakfast Active Acetaminophen [TylenoL] Med 09/12/20 22:07 Active 650 mg PO Q4H PRN Albuterol/Ipratropium [DuoNeb 3.0-0.5 MG/3 ML] Med 09/12/20 22:07 Active 3 ml NEB Q4HRRT PRN Dextrose 50% in Water Med 09/12/20 22:11 Active 50 ml IVPUSH ASDIRECTED PRN Glucagon,Human Recombinant [GlucaGen] Med 09/12/20 22:11 Active 1 mg IM ASDIRECTED PRN Heparin Sodium Med 09/13/20 09:00 Active 5,000 units SUBCUT Q8H Insulin Aspart [NovoLOG] Med 09/13/20 07:30 Active See Protocol SUBCUT TIDAC Lactated Ringers [Ringers, Lactated] 1,000 ml Med 09/12/20 22:15 Active IV ASDIRECTED Ondansetron [Zofran] Med 09/12/20 22:07 Active 4 mg IVPUSH Q4H PRN Pantoprazole [ProTONIX IV] Med 09/13/20 09:00 Active 40 mg IV DAILY Sequential Compression Device [OM.PC] Per Unit Routine Oth 09/12/20 22:07 Ord ered Medication Orders Acetaminophen (Acetaminophen 325 Mg Tab) 650 mg PO Q4H PRN PRN Reason: Pain (Mild 1-3)/fever Albuterol/Ipratropium (Albuterol/Ipratropium 3.0-0.5 Mg/3 Ml Neb Soln) 3 ml NEB Q4HRRT PRN PRN Reason: Shortness Of Breath/wheezing Dextrose/Water (50% Dextrose In Water 50 Ml Syringe) 50 ml IVPUSH ASDIRECTED PRN PRN Reason: Hypoglycemia Glucagon (Glucagon,Human Recombinant 1 Mg Vial) 1 mg IM ASDIRECTED PRN PRN Reason: Hypoglycemia Heparin Sodium (Porcine) (Heparin Sodium 5,000 Units/Ml Vial) 5,000 units SUBCUT Q8H ODELL Lactated Ringer's (Ringers, Lactated) 1,000 mls @ 125 mls/hr IV ASDIRECTED [facility] Last Admin: 09/13/20 03:18 Dose: 125 mls/hr Documented by: PUEPBRI Insulin Aspart (Insulin Aspart 100 Units/Ml 3 Ml Pen) 0 unit SUBCUT TIDAC [facility]; Protocol Ondansetron HCl (Ondansetron 4 Mg/2 Ml Sdv) 4 mg IVPUSH Q4H PRN PRN Reason: Nausea/Vomiting Pantoprazole Sodium (Pantoprazole 40 Mg Vial) 40 mg IV DAILY [facility] Assessment/Plan Comment:: This 70-year-old female admitted with left lower extremity weakness and increased falls along with hypokalemia. 1. Falls and left lower extremity weakness -upon review of Dr. Asher's note she had requested brain MRI without contrast. We will obtain that today. -Brain MRI obtained which reveals right internal capsule posterior limb/subinsular region late acute to early subacute lacunar infarct. Subacute to early chronic lacunar infarcts involving bilateral superior cerebral white matter. Chronic lacunar infarcts within the bilateral basal ganglia. Patchy buffer chrome junior microvascular ischemic changes within the supratentorial white matter elsewhere. Probable right-sided early wallerian degeneration no evidence of hydrocephalus. MRA of head and neck obtained which reveal no evidence of proximal arterial occlusion, aneurysm, dissection or vascular malformation. Neck MRA reveals mild less than 50% stenosis of left ICA due to atherosclerosis no significant right ICA stenosis. -Due to findings of acute to subacute stroke will do further stroke work-up. Will notify Dr. Asher. -Start aspirin 81 mg, does have allergy that causes nausea vomiting will use enteric-coated and monitor closely. -Increase atorvastatin to 80 mg at bedtime -Obtain echo -A1c 9.3 cholesterol reveals triglycerides 244 total cholesterol 168 LDL 86 HDL 33. TSH 12.75 T4 0.79 -allow permissive hypertension -monitor on telemetry for any arrhythmias -labetalol for blood pressures greater than 190 -consult PT has no upper extremity weakness will hold off on OT for now no speech therapy concerns at this time. -had very lengthy discussion regarding compliance with medications and poor prognosis if she does not follow compliance. She verbalized understanding. This was also communicated to her brother Eleuterio was at bedside after diagnosis of stroke made. Also discussed with her at length smoking cessation. At this time she is very unwilling to quit smoking. And denies wanting any help with this. She was counseled heavily that noncompliance and continuance of smoking would lead to a poor prognosis she verbalized understanding. 2. Diabetes type 2 -ADA diet -insulin sliding scale with meals -appears patient is on Levemir at home will start small dose at bedtime for better control reports that she does not take this as it upsets her stomach after taking it. 3. Hypertension -allow permissive hypertension at this point -monitor closely 4. Hypothyroidism -newly diagnosed we will start low-dose 75 mcg daily. -Recommend recheck in 6 weeks with PCP VTE prophylaxis: Heparin CODE STATUS: Full code Dispo: 1 to 2 days pending improvement. Patient denies wanting to go to any type of fdc facility for physical therapy. Will likely set up home health with PT OT to evaluate and treat.
[2020-09-13] MEDS ORDERED: Pantoprazole 40 MG Vial IV SCH (09:00)
[2020-09-13 09:06] LABS: CARBON DIOXIDE,CO2 24.2 mmol/L (21.0-32.0); POTASSIUM,K 3.5 mmol/L (3.5-5.1)
[2020-09-13] MEDS ORDERED: Magnesium Sulfate/Water 2 GM in Premix Bag 1 BAG IV ONE (10:00)
--- NOTE | 2020-09-13 12:12 | MR ---
INDICATION: Gait instability. Memory concerns. Evaluate for NPH. TECHNIQUE: Brain MRI without contrast. The following sequences were obtained: Sagittal T1 weighted sequence. DWI and ADC mapping sequences. Axial FLAIR and SUJIT T2 weighted sequences. SWI sequence. COMPARISON: Head CT from 09/12/2020. FINDINGS: 14 millimeter oval region of true diffusion restriction and underlying FLAIR hyperintensity within the right internal capsule posterior limb/subinsular region. Finding is most compatible with a late acute to early subacute lacunar infarct. Patchy areas of diffusion abnormality involving the superior cerebral juxtacortical and intermediate deep white matter, with high signal on the B1000 map without ADC hypointensity. Findings are most compatible with subacute to early chronic lacunar infarcts. Several additional chronic lacunar infarcts are present within the right greater than left basal ganglia. Subtle FLAIR hyperintensity within the right cerebral peduncle/samara may represent early/mild wallerian degeneration. Patchy FLAIR hyperintensity within the supratentorial white matter, typical for chronic microvascular ischemic change. No evidence of acute or chronic intracranial blood products. No mass effect or herniation. No hydrocephalus or extra-axial collections. The pituitary gland, parasellar structures and optic chiasm are normal. All the major intracranial vascular structures demonstrate normal flow-related signal. The orbital contents are normal. No calvarial or skull base marrow signal abnormality. No obstructive sinus disease. No extracranial soft tissue findings. IMPRESSION: 1. Right internal capsule posterior limb/subinsular region late acute to early subacute lacunar infarct. 2. Subacute to early chronic lacunar infarctions involving the bilateral superior cerebral white matter. Chronic lacunar infarcts within the bilateral basal ganglia. Patchy chronic microvascular ischemic changes within the supratentorial white matter elsewhere. 3. Probable right-sided early/mild wallerian degeneration. 4. No evidence of hydrocephalus. Dictated by John Rodriguez MD @ 09/13/2020 12:10:[address] John Rodriguez @ Sep 13 2020 12:10PM
[2020-09-13 13:17] LABS: HEMOGLOBIN A1C 9.3 %
--- NOTE | 2020-09-13 13:48 | MR ---
Indication: CVA Technique: 3D [id number] MR angiogram of the [id number] with 3-dimensional MIP projections were submitted. Comparison: No prior studies available for comparison at this institution. Findings: Image quality is degraded by motion artifact. The visualized first and second order intracranial vessels are unremarkable. No occlusion/filling defect or acquired arterial stenosis identified. No aneurysm or vascular malformation seen. Impression: 1. No evidence of proximal arterial occlusion, aneurysm, dissection, or vascular malformation. 2. Image quality is degraded by motion artifact. Dictated by Mikhail Hess MD @ 09/13/2020 1:46:[address] Mikhail Hess @ Sep 13 2020 1:46PM
--- NOTE | 2020-09-13 13:53 | MR ---
Indication: CVA Technique: [id number] MRA of the neck with 3D MIP reconstructions provided. All measurements are based on NASCET criteria. Comparison: No prior studies available for comparison at this institution. Findings: The origins of the cervical arteries are unremarkable. The bulla vertebral arteries are patent and unremarkable. The common carotid arteries are patent and unremarkable. Mild (less than 50 percent) stenosis of the left ICA due to atherosclerosis. No significant right ICA stenosis. Specifically, no evidence of high grade stenosis, proximal occlusion, aneurysm, dissection, or vascular malformation. Impression: 1. No proximal arterial occlusion, aneurysm, dissection, or vascular malformation. 2. Mild (less than 50 percent) stenosis of the left ICA due to atherosclerosis. No significant right ICA stenosis. 3. Examination is limited by motion artifact. Dictated by Mikhail Hess MD @ 09/13/2020 1:51:[address] Mikhail Hess @ Sep 13 2020 1:51PM
[2020-09-13] MEDS ORDERED: Glucagon,Human Recombinant 1 MG Vial IM PRN (14:35)
[2020-09-13] MEDS: Aspirin 81 MG Tab.EC PO SCH (15:56)
--- NOTE | 2020-09-13 15:58 | PCM.CONS ---
H&P History of Present Illness - General Date of Service: 09/13/20 Admit Problem/Dx: Admission Diagnosis/Problem Admission Diagnosis/Problem Ambulatory dysfunction History Limitations: Reports: No Limitations - History of Present Illness Initial Comments - Free Text/Narative: She started having problems with her balance around Jan 2020. Bowel and bladder incontinence started about a month later. She was falling every day for a period of time,. She was in hospital in January and March. During 1st hospitalization, she was discovered to have uncontrolled DM, HTN. A1c was 10. She had not seen a provider for many years prior. .She had had neck pain since her . NCS/EMG 05/26/2020 showed length dependent sensorimotor polyneuropathy with asymmetry in lower limb EMG. MRI C spine showed incidental thyroid nodule; multilevel degenerative changes with foraminal narrowing. No spinal cord lesion MRI T and L spine 06/22/2020 - multilevel thoracic spondylosis/facet arthropathy w/o significant stenosis; mild lumbar spondylotic changes, no significant stenosis. US head and neck 06/13/2020 - 1.4 cm TIRADS 3 nodule - does not meet size criteria for FNA or follow up. I saw her 2 days ago. In addition to falls and incontinence, she noted new concern regarding memory. MRI was scheduled. She reported that she was not taking insulin because of pain associated with it. She has smoked since 1970 and have never tried to quit. She presented yesterday after multiple falls. - Related Data Allergies/Adverse Reactions: Allergies Allergy/AdvReac Type Severity Reaction Status Date / Time aspirin Allergy Nausea and Verified 09/13/20 01:20 Vomiting codeine Allergy Shaking Verified 09/13/20 01:20 coffee (Coffea arabica) Allergy Nausea and Verified 09/13/20 01:20 Vomiting ibuprofen Allergy Nausea and Verified 09/13/20 01:20 Vomiting red beets Allergy Nausea and Uncoded 09/13/20 01:25 Vomiting Home Medications: Home Meds Insulin Detemir [Levemir] 10 unit SUBCUT BEDTIME 15 Days #1 pen 02/22/20 [Rx] Melatonin 3 mg PO BEDTIME PRN 15 Days #15 tablet 02/22/20 [Rx] lisinopriL [Prinivil] 40 mg PO DAILY 15 Days #15 tablet 02/22/20 [Rx] metFORMIN [Glucophage] 500 mg PO BIDMEALS 15 Days #30 tablet 02/22/20 [Rx] Insulin Detemir [Levemir Flextouch] 100 unit SQ BEDTIME 10 Days #1 insuln.pen 04/03/20 [Rx] amLODIPine Besylate [Amlodipine Besylate] 10 mg PO DAILY 30 Days #30 tablet 04/03/20 [Rx] atorvaSTATin [Lipitor] 20 mg PO BEDTIME 30 Days #30 tab 04/03/20 [Rx] Past Medical History HEENT History: Reports: Impaired Vision Other HEENT History: pt. wears glasses, not present with patient Cardiovascular History: Reports: High Cholesterol, Hypertension Genitourinary History: Reports: Urinary Incontinence RAIL LAYER History: Reports: Endometriosis Endocrine/Metabolic History: Reports: Diabetes, Type II - Infectious Disease History Infectious Disease History: Reports: Chicken Pox, Measles, Mumps - Past Surgical History HEENT Surgical History: Reports: None Social & Family History - Family History Family Medical History: No Pertinent Family History Cardiac: Reports: High Cholesterol, Hypertension Endocrine/Metabolic: Reports: Diabetes, type II - Tobacco Use Tobacco Use Status *Q: Current Every Day Tobacco User Years of Tobacco use: 50 Packs/Tins Daily: 0.5 - Caffeine Use Caffeine Use: Reports: Soda - Recreational Drug Use Recreational Drug Use: No H&P Review of Systems - Review of Systems: Review Of Systems: Comprehensive ROS is negative, except as noted in HPI. Exam - Exam Exam: See Below (Patient alert, provides history. No facial asymmetry. exam o/w not performed as she was getting an echo) - Vital Signs Vital Signs: Last Vital Signs Temp 35.8 C L 09/13/20 11:51 Pulse 86 09/13/20 11:51 Resp 20 09/13/20 11:51 BP 141/64 H 09/13/20 11:51 Pulse Ox 96 09/13/20 11:51 Weight: 59.375 kg - Patient Data Lab Results Last 24 hrs: Laboratory Results - last 24 hr 09/12/20 09/12/20 09/12/20 Range/Units 18:00 18:00 18:00 WBC 5.98 (4.0-11.0) K/uL RBC 4.56 (4.30-5.90) M/uL Hgb 14.4 (12.0-16.0) g/dL Hct 41.3 (36.0-46.0) % MCV 90.6 (80.0-98.0) fL MCH 31.6 (27.0-32.0) pg MCHC 34.9 (31.0-37.0) g/dL RDW Std Deviation 41.8 (28.0-62.0) fl RDW Coeff of Nicci 13 (11.0-15.0) % Plt Count 256 (150-400) K/uL MPV 10.80 (7.40-12.00) fL Neut % (Auto) 62.6 (48.0-80.0) % Lymph % (Auto) 30.1 (16.0-40.0) % [place] % (Auto) 6.0 (0.0-15.0) % Eos % (Auto) 1.0 (0.0-7.0) % Baso % (Auto) 0.3 (0.0-1.5) % Neut # (Auto) 3.7 (1.4-5.7) K/uL Lymph # (Auto) 1.8 (0.6-2.4) K/uL [place] # (Auto) 0.4 (0.0-0.8) K/uL Eos # (Auto) 0.1 (0.0-0.7) K/uL Baso # (Auto) 0.0 (0.0-0.1) K/uL Nucleated RBC % 0.0 /100WBC Nucleated RBCs # 0 K/uL Sodium 141 (136-145) mmol/L Potassium 3.1 L (3.5-5.1) mmol/L Chloride 102 (98-107) mmol/L Carbon Dioxide 26.1 (21.0-32.0) mmol/L BUN 21 H (7.0-18.0) mg/dL Creatinine 1.0 (0.6-1.0) mg/dL Est Cr Clr Drug Dosing 44.56 mL/min Estimated GFR (MDRD) 54.7 ml/min Glucose 186 H (74-106) mg/dL POC Glucose (70-99) mg/dL Hemoglobin A1c (4.5 - 6.2) % Calcium 8.3 L (8.5-10.1) mg/dL Magnesium 1.9 (1.8-2.4) mg/dL Total Bilirubin 0.5 (0.2-1.0) mg/dL AST 12 L (15-37) IU/L ALT 17 (14-63) IU/L Alkaline Phosphatase 86 (46-116) U/L Troponin I < 0.050 (0.000-0.056) ng/mL Total Protein 6.5 (6.4-8.2) g/dL Albumin 3.4 (3.4-5.0) g/dL Globulin 3.1 (2.6-4.0) g/dL Albumin/Globulin Ratio 1.1 (0.9-1.6) Triglycerides (0-200) mg/dL Cholesterol (50-200) mg/dL LDL Cholesterol, Calc (60-180) mg/dL VLDL Cholesterol (5-55) mg/dL HDL Cholesterol (40-60) mg/dL Cholesterol/HDL Ratio (3.3-6.0) Free T4 (0.76-1.46) ng/dL TSH, Ultra Sensitive (0.36-3.74) uIU/mL Urine Color Urine Appearance Urine pH (5.0-8.0) Ur Specific [place] (1.001-1.035) Urine Protein (NEGATIVE) mg/dL Urine Glucose (UA) (NEGATIVE) mg/dL Urine Ketones (NEGATIVE) mg/dL Urine Occult Blood (NEGATIVE) Urine Nitrite (NEGATIVE) Urine Bilirubin (NEGATIVE) Urine Urobilinogen (<2.0) EU/dL Ur Leukocyte Esterase (NEGATIVE) SARS-CoV-2 RNA (JOSH) (NEGATIVE) 09/12/20 09/12/20 09/12/20 Range/Units 18:00 18:42 22:55 WBC (4.0-11.0) K/uL RBC (4.30-5.90) M/uL Hgb (12.0-16.0) g/dL Hct (36.0-46.0) % MCV (80.0-98.0) fL MCH (27.0-32.0) pg MCHC (31.0-37.0) g/dL RDW Std Deviation (28.0-62.0) fl RDW Coeff of Nicci (11.0-15.0) % Plt Count (150-400) K/uL MPV (7.40-12.00) fL Neut % (Auto) (48.0-80.0) % Lymph % (Auto) (16.0-40.0) % [place] % (Auto) (0.0-15.0) % Eos % (Auto) (0.0-7.0) % Baso % (Auto) (0.0-1.5) % Neut # (Auto) (1.4-5.7) K/uL Lymph # (Auto) (0.6-2.4) K/uL [place] # (Auto) (0.0-0.8) K/uL Eos # (Auto) (0.0-0.7) K/uL Baso # (Auto) (0.0-0.1) K/uL Nucleated RBC % /100WBC Nucleated RBCs # K/uL Sodium (136-145) mmol/L Potassium (3.5-5.1) mmol/L Chloride (98-107) mmol/L Carbon Dioxide (21.0-32.0) mmol/L BUN (7.0-18.0) mg/dL Creatinine (0.6-1.0) mg/dL Est Cr Clr Drug Dosing mL/min Estimated GFR (MDRD) ml/min Glucose (74-106) mg/dL POC Glucose (70-99) mg/dL Hemoglobin A1c (4.5 - 6.2) % Calcium (8.5-10.1) mg/dL Magnesium (1.8-2.4) mg/dL Total Bilirubin (0.2-1.0) mg/dL AST (15-37) IU/L ALT (14-63) IU/L Alkaline Phosphatase (46-116) U/L Troponin I (0.000-0.056) ng/mL Total Protein (6.4-8.2) g/dL Albumin (3.4-5.0) g/dL Globulin (2.6-4.0) g/dL Albumin/Globulin Ratio (0.9-1.6) Triglycerides (0-200) mg/dL Cholesterol (50-200) mg/dL LDL Cholesterol, Calc (60-180) mg/dL VLDL Cholesterol (5-55) mg/dL HDL Cholesterol (40-60) mg/dL Cholesterol/HDL Ratio (3.3-6.0) Free T4 0.79 (0.76-1.46) ng/dL TSH, Ultra Sensitive 12.75 H (0.36-3.74) uIU/mL Urine Color YELLOW Urine Appearance CLEAR Urine pH 6.0 (5.0-8.0) Ur Specific [place] <= 1.005 (1.001-1.035) Urine Protein NEGATIVE (NEGATIVE) mg/dL Urine Glucose (UA) NEGATIVE (NEGATIVE) mg/dL Urine Ketones NEGATIVE (NEGATIVE) mg/dL Urine Occult Blood NEGATIVE (NEGATIVE) Urine Nitrite NEGATIVE (NEGATIVE) Urine Bilirubin NEGATIVE (NEGATIVE) Urine Urobilinogen 0.2 (<2.0) EU/dL Ur Leukocyte Esterase NEGATIVE (NEGATIVE) SARS-CoV-2 RNA (JOSH) NEGATIVE (NEGATIVE) 09/13/20 09/13/20 09/13/20 Range/Units 06:37 08:15 08:15 WBC 6.83 (4.0-11.0) K/uL RBC 4.05 L (4.30-5.90) M/uL Hgb 12.6 (12.0-16.0) g/dL Hct 37.0 (36.0-46.0) % MCV 91.4 (80.0-98.0) fL MCH 31.1 (27.0-32.0) pg MCHC 34.1 (31.0-37.0) g/dL RDW Std Deviation 42.8 (28.0-62.0) fl RDW Coeff of Nicci 13 (11.0-15.0) % Plt Count 245 (150-400) K/uL MPV 10.80 (7.40-12.00) fL Neut % (Auto) 63.6 (48.0-80.0) % Lymph % (Auto) 28.8 (16.0-40.0) % [place] % (Auto) 6.4 (0.0-15.0) % Eos % (Auto) 0.9 (0.0-7.0) % Baso % (Auto) 0.3 (0.0-1.5) % Neut # (Auto) 4.3 (1.4-5.7) K/uL Lymph # (Auto) 2.0 (0.6-2.4) K/uL [place] # (Auto) 0.4 (0.0-0.8) K/uL Eos # (Auto) 0.1 (0.0-0.7) K/uL Baso # (Auto) 0.0 (0.0-0.1) K/uL Nucleated RBC % 0.0 /100WBC Nucleated RBCs # 0 K/uL Sodium 143 (136-145) mmol/L Potassium 3.5 (3.5-5.1) mmol/L Chloride 108 H (98-107) mmol/L Carbon Dioxide 24.2 (21.0-32.0) mmol/L BUN 12 (7.0-18.0) mg/dL Creatinine 1.0 (0.6-1.0) mg/dL Est Cr Clr Drug Dosing 44.56 mL/min Estimated GFR (MDRD) 54.7 ml/min Glucose 234 H (74-106) mg/dL POC Glucose 232 H (70-99) mg/dL Hemoglobin A1c (4.5 - 6.2) % Calcium 7.7 L (8.5-10.1) mg/dL Magnesium 1.7 L (1.8-2.4) mg/dL Total Bilirubin (0.2-1.0) mg/dL AST (15-37) IU/L ALT (14-63) IU/L Alkaline Phosphatase (46-116) U/L Troponin I (0.000-0.056) ng/mL Total Protein (6.4-8.2) g/dL Albumin (3.4-5.0) g/dL Globulin (2.6-4.0) g/dL Albumin/Globulin Ratio (0.9-1.6) Triglycerides (0-200) mg/dL Cholesterol (50-200) mg/dL LDL Cholesterol, Calc (60-180) mg/dL VLDL Cholesterol (5-55) mg/dL HDL Cholesterol (40-60) mg/dL Cholesterol/HDL Ratio (3.3-6.0) Free T4 (0.76-1.46) ng/dL TSH, Ultra Sensitive (0.36-3.74) uIU/mL Urine Color Urine Appearance Urine pH (5.0-8.0) Ur Specific [place] (1.001-1.035) Urine Protein (NEGATIVE) mg/dL Urine Glucose (UA) (NEGATIVE) mg/dL Urine Ketones (NEGATIVE) mg/dL Urine Occult Blood (NEGATIVE) Urine Nitrite (NEGATIVE) Urine Bilirubin (NEGATIVE) Urine Urobilinogen (<2.0) EU/dL Ur Leukocyte Esterase (NEGATIVE) SARS-CoV-2 RNA (JOSH) (NEGATIVE) 09/13/20 09/13/20 09/13/20 Range/Units 08:15 12:58 13:24 WBC (4.0-11.0) K/uL RBC (4.30-5.90) M/uL Hgb (12.0-16.0) g/dL Hct (36.0-46.0) % MCV (80.0-98.0) fL MCH (27.0-32.0) pg MCHC (31.0-37.0) g/dL RDW Std Deviation (28.0-62.0) fl RDW Coeff of Nicci (11.0-15.0) % Plt Count (150-400) K/uL MPV (7.40-12.00) fL Neut % (Auto) (48.0-80.0) % Lymph % (Auto) (16.0-40.0) % [place] % (Auto) (0.0-15.0) % Eos % (Auto) (0.0-7.0) % Baso % (Auto) (0.0-1.5) % Neut # (Auto) (1.4-5.7) K/uL Lymph # (Auto) (0.6-2.4) K/uL [place] # (Auto) (0.0-0.8) K/uL Eos # (Auto) (0.0-0.7) K/uL Baso # (Auto) (0.0-0.1) K/uL Nucleated RBC % /100WBC Nucleated RBCs # K/uL Sodium (136-145) mmol/L Potassium (3.5-5.1) mmol/L Chloride (98-107) mmol/L Carbon Dioxide (21.0-32.0) mmol/L BUN (7.0-18.0) mg/dL Creatinine (0.6-1.0) mg/dL Est Cr Clr Drug Dosing mL/min Estimated GFR (MDRD) ml/min Glucose (74-106) mg/dL POC Glucose 311 H (70-99) mg/dL Hemoglobin A1c 9.3 H (4.5 - 6.2) % Calcium (8.5-10.1) mg/dL Magnesium (1.8-2.4) mg/dL Total Bilirubin (0.2-1.0) mg/dL AST (15-37) IU/L ALT (14-63) IU/L Alkaline Phosphatase (46-116) U/L Troponin I (0.000-0.056) ng/mL Total Protein (6.4-8.2) g/dL Albumin (3.4-5.0) g/dL Globulin (2.6-4.0) g/dL Albumin/Globulin Ratio (0.9-1.6) Triglycerides 244 H (0-200) mg/dL Cholesterol 168 (50-200) mg/dL LDL Cholesterol, Calc 86 (60-180) mg/dL VLDL Cholesterol 48 (5-55) mg/dL HDL Cholesterol 33 L (40-60) mg/dL Cholesterol/HDL Ratio 5.1 (3.3-6.0) Free T4 (0.76-1.46) ng/dL TSH, Ultra Sensitive (0.36-3.74) uIU/mL Urine Color Urine Appearance Urine pH (5.0-8.0) Ur Specific [place] (1.001-1.035) Urine Protein (NEGATIVE) mg/dL Urine Glucose (UA) (NEGATIVE) mg/dL Urine Ketones (NEGATIVE) mg/dL Urine Occult Blood (NEGATIVE) Urine Nitrite (NEGATIVE) Urine Bilirubin (NEGATIVE) Urine Urobilinogen (<2.0) EU/dL Ur Leukocyte Esterase (NEGATIVE) SARS-CoV-2 RNA (JOSH) (NEGATIVE) Result Diagrams: 09/13/20 08:15 09/13/20 08:15 Sepsis Event Note - Evaluation Sepsis Screening Result: No Definite Risk - Focused Exam Vital Signs: Vital Signs Temp Pulse Resp BP Pulse Ox 09/13/20 11:51 35.8 C L 86 20 141/64 H 96 09/13/20 07:42 1.8 C L 89 16 127/79 93 L Consult PN Assessment/Plan Procedures: Procedures ASSAY OF FREE THYROXINE (02/19/20) ASSAY OF MAGNESIUM (02/19/20) ASSAY OF PHOSPHORUS (02/19/20) ASSAY THYROID STIM HORMONE (02/19/20) COMPLETE CBC W/AUTO DIFF WBC (04/03/20) COMPREHEN METABOLIC PANEL (04/03/20) CT HEAD/BRAIN W/O DYE (02/19/20) CT NECK SPINE W/O DYE (02/19/20) ELECTROCARDIOGRAM TRACING (02/19/20) EMERGENCY DEPT VISIT (04/03/20) EVALUATE SWALLOWING FUNCTION (02/19/20) GLUCOSE BLOOD TEST (04/03/20) GLYCOSYLATED HEMOGLOBIN TEST (02/19/20) HEPATIC FUNCTION PANEL (02/19/20) IMMUNIZATION ADMIN (02/19/20) LIPID PANEL (02/19/20) METABOLIC PANEL TOTAL CA (02/19/20) MICROBE SUSCEPTIBLE CHRISTIAN (02/19/20) MRI CHEST SPINE W/O DYE (06/20/20) MRI LUMBAR SPINE W/O DYE (06/20/20) MRI NECK SPINE W/O DYE (05/22/20) PT EVAL LOW COMPLEX 20 MIN (02/19/20) ROUTINE VENIPUNCTURE (04/03/20) THER/PROPH/DIAG INJ IV PUSH (02/19/20) THERAPEUTIC ACTIVITIES (02/19/20) URINALYSIS AUTO W/SCOPE (04/03/20) URINE BACTERIA CULTURE (02/19/20) URINE CULTURE/COLONY COUNT (02/19/20) US EXAM OF HEAD AND NECK (06/20/20) (1) Acute ischemic stroke SNOMED Code(s): 007084665, 023401647 Code(s): I63.9 - CEREBRAL INFARCTION, UNSPECIFIED Current Visit: Yes Assessment:: 1Stroke A1c 9.3, LDL 86, TSH 12.75 Stroke appear late acute / subacute, so permissive HTN not necessarily unless lower BP are associated with worsening deficits PT/OT Tobacco cessation counseling Agree with high intensity statin Telemetry, zio patch upon discharge Antiplatelet 2. Gait dysfunction -chronic gait dysfunction due to diabetic polyneuropathy worsened by subacute stroke (2) Ambulatory dysfunction SNOMED Code(s): 482029368 Code(s): R26.2 - DIFFICULTY IN WALKING, NOT ELSEWHERE CLASSIFIED Current Visit: Yes Problem List Initiated/Reviewed/Updated: Yes
[2020-09-13] MEDS ORDERED: atorvaSTATin 20 MG Tab PO SCH (21:00)
[2020-09-13] MEDS ORDERED: Insulin Detemir 100 Units/ML 3 ML Pen SUBCUT SCH (21:00)
[2020-09-13] MEDS ORDERED: atorvaSTATin 40 MG Tab PO SCH (21:00)
[2020-09-14] MEDS ORDERED: Labetalol 100 MG/20 ML MDV IVPUSH ONE (00:54)
[2020-09-14] MEDS ORDERED: Labetalol 100 MG/20 ML MDV ONE (00:59)
[2020-09-14] MEDS: Heparin Sodium 5,000 Units/ML Vial SUBCUT SCH ×2 (01:00→07:59)
[2020-09-14 06:36] LABS: BLOOD UREA NITROGEN,BUN 13 mg/dL (7.0-18.0); CARBON DIOXIDE,CO2 27.7 mmol/L (21.0-32.0); CHLORIDE,CL 105 mmol/L (98-107); GLUCOSE RANDOM 176 mg/dL (74-106); POTASSIUM,K 3.2 mmol/L (3.5-5.1); SODIUM,NA 143 mmol/L (136-145)
[2020-09-14] MEDS ORDERED: Levothyroxine 75 MCG Tab PO SCH (07:30)
[2020-09-14] MEDS: Insulin Aspart 100 Units/ML 3 ML Pen SUBCUT SCH ×2 (08:02→11:25)
[2020-09-14] MEDS: Aspirin 81 MG Tab.EC PO SCH (08:12)
[2020-09-14] MEDS ORDERED: Pantoprazole 40 MG in Sodium Chloride 0.9% 10 ML IV SCH (09:00)
[2020-09-14] MEDS ORDERED: Lisinopril 10 MG Tab PO SCH ×2 (09:00)
[2020-09-14] MEDS ORDERED: amLODIPine 5 MG Tab PO SCH ×2 (09:00)
[2020-09-14] MEDS: Potassium Chloride 20 MEQ Tab.ER PO SCH ×2 (09:05→13:20)
[2020-09-14] MEDS ORDERED: Metoprolol Succinate 25 MG Tab.ER PO SCH (10:30)
--- NOTE | 2020-09-14 10:35 | PCM.CONSN ---
- General Info Date of Service: 09/14/20 Subjective Update: She feels stronger today. No new complaints. She worked with PT. - Patient Data Vitals - Most Recent: Last Vital Signs Temp 36.3 C 09/14/20 09:03 Pulse 73 09/14/20 09:03 Resp 16 09/14/20 09:03 BP 164/70 H 09/14/20 09:03 Pulse Ox 92 L 09/14/20 09:03 Weight - Most Recent: 59.375 kg I&O - Last 24 Hours: Intake & Output 09/13/20 09/14/20 09/14/20 22:59 06:59 14:59 Intake Total 1535 710 Balance 1535 710 Lab Results Last 24 Hours: Laboratory Results - last 24 hr 09/13/20 09/13/20 09/13/20 Range/Units 08:15 12:58 13:24 WBC (4.0-11.0) K/uL RBC (4.30-5.90) M/uL Hgb (12.0-16.0) g/dL Hct (36.0-46.0) % MCV (80.0-98.0) fL MCH (27.0-32.0) pg MCHC (31.0-37.0) g/dL RDW Std Deviation (28.0-62.0) fl RDW Coeff of Nicci (11.0-15.0) % Plt Count (150-400) K/uL MPV (7.40-12.00) fL Neut % (Auto) (48.0-80.0) % Lymph % (Auto) (16.0-40.0) % [place] % (Auto) (0.0-15.0) % Eos % (Auto) (0.0-7.0) % Baso % (Auto) (0.0-1.5) % Neut # (Auto) (1.4-5.7) K/uL Lymph # (Auto) (0.6-2.4) K/uL [place] # (Auto) (0.0-0.8) K/uL Eos # (Auto) (0.0-0.7) K/uL Baso # (Auto) (0.0-0.1) K/uL Nucleated RBC % /100WBC Nucleated RBCs # K/uL Sodium (136-145) mmol/L Potassium (3.5-5.1) mmol/L Chloride (98-107) mmol/L Carbon Dioxide (21.0-32.0) mmol/L BUN (7.0-18.0) mg/dL Creatinine (0.6-1.0) mg/dL Est Cr Clr Drug Dosing mL/min Estimated GFR (MDRD) ml/min Glucose (74-106) mg/dL POC Glucose 311 H (70-99) mg/dL Hemoglobin A1c 9.3 H (4.5 - 6.2) % Calcium (8.5-10.1) mg/dL Magnesium (1.8-2.4) mg/dL Triglycerides 244 H (0-200) mg/dL Cholesterol 168 (50-200) mg/dL LDL Cholesterol, Calc 86 (60-180) mg/dL VLDL Cholesterol 48 (5-55) mg/dL HDL Cholesterol 33 L (40-60) mg/dL Cholesterol/HDL Ratio 5.1 (3.3-6.0) 09/13/20 09/13/20 09/14/20 Range/Units 17:40 21:46 05:57 WBC 8.43 (4.0-11.0) K/uL RBC 4.23 L (4.30-5.90) M/uL Hgb 12.9 (12.0-16.0) g/dL Hct 38.6 (36.0-46.0) % MCV 91.3 (80.0-98.0) fL MCH 30.5 (27.0-32.0) pg MCHC 33.4 (31.0-37.0) g/dL RDW Std Deviation 42.6 (28.0-62.0) fl RDW Coeff of Nicci 13 (11.0-15.0) % Plt Count 226 (150-400) K/uL MPV 10.80 (7.40-12.00) fL Neut % (Auto) 66.8 (48.0-80.0) % Lymph % (Auto) 24.3 (16.0-40.0) % [place] % (Auto) 7.6 (0.0-15.0) % Eos % (Auto) 1.1 (0.0-7.0) % Baso % (Auto) 0.2 (0.0-1.5) % Neut # (Auto) 5.6 (1.4-5.7) K/uL Lymph # (Auto) 2.1 (0.6-2.4) K/uL [place] # (Auto) 0.6 (0.0-0.8) K/uL Eos # (Auto) 0.1 (0.0-0.7) K/uL Baso # (Auto) 0.0 (0.0-0.1) K/uL Nucleated RBC % 0.0 /100WBC Nucleated RBCs # 0 K/uL Sodium (136-145) mmol/L Potassium (3.5-5.1) mmol/L Chloride (98-107) mmol/L Carbon Dioxide (21.0-32.0) mmol/L BUN (7.0-18.0) mg/dL Creatinine (0.6-1.0) mg/dL Est Cr Clr Drug Dosing mL/min Estimated GFR (MDRD) ml/min Glucose (74-106) mg/dL POC Glucose 255 H 258 H (70-99) mg/dL Hemoglobin A1c (4.5 - 6.2) % Calcium (8.5-10.1) mg/dL Magnesium (1.8-2.4) mg/dL Triglycerides (0-200) mg/dL Cholesterol (50-200) mg/dL LDL Cholesterol, Calc (60-180) mg/dL VLDL Cholesterol (5-55) mg/dL HDL Cholesterol (40-60) mg/dL Cholesterol/HDL Ratio (3.3-6.0) 09/14/20 09/14/20 Range/Units 05:57 06:28 WBC (4.0-11.0) K/uL RBC (4.30-5.90) M/uL Hgb (12.0-16.0) g/dL Hct (36.0-46.0) % MCV (80.0-98.0) fL MCH (27.0-32.0) pg MCHC (31.0-37.0) g/dL RDW Std Deviation (28.0-62.0) fl RDW Coeff of Nicci (11.0-15.0) % Plt Count (150-400) K/uL MPV (7.40-12.00) fL Neut % (Auto) (48.0-80.0) % Lymph % (Auto) (16.0-40.0) % [place] % (Auto) (0.0-15.0) % Eos % (Auto) (0.0-7.0) % Baso % (Auto) (0.0-1.5) % Neut # (Auto) (1.4-5.7) K/uL Lymph # (Auto) (0.6-2.4) K/uL [place] # (Auto) (0.0-0.8) K/uL Eos # (Auto) (0.0-0.7) K/uL Baso # (Auto) (0.0-0.1) K/uL Nucleated RBC % /100WBC Nucleated RBCs # K/uL Sodium 143 (136-145) mmol/L Potassium 3.2 L (3.5-5.1) mmol/L Chloride 105 (98-107) mmol/L Carbon Dioxide 27.7 (21.0-32.0) mmol/L BUN 13 (7.0-18.0) mg/dL Creatinine 0.9 (0.6-1.0) mg/dL Est Cr Clr Drug Dosing 49.51 mL/min Estimated GFR (MDRD) > 60.0 ml/min Glucose 176 H (74-106) mg/dL POC Glucose 173 H (70-99) mg/dL Hemoglobin A1c (4.5 - 6.2) % Calcium 8.2 L (8.5-10.1) mg/dL Magnesium 2.0 (1.8-2.4) mg/dL Triglycerides (0-200) mg/dL Cholesterol (50-200) mg/dL LDL Cholesterol, Calc (60-180) mg/dL VLDL Cholesterol (5-55) mg/dL HDL Cholesterol (40-60) mg/dL Cholesterol/HDL Ratio (3.3-6.0) Med Orders - Current: Current Medications Acetaminophen (Acetaminophen 325 Mg Tab) 650 mg PO Q4H PRN PRN Reason: Pain (Mild 1-3)/fever Albuterol/Ipratropium (Albuterol/Ipratropium 3.0-0.5 Mg/3 Ml Neb Soln) 3 ml NEB Q4HRRT PRN PRN Reason: Shortness Of Breath/wheezing Amlodipine Besylate (Amlodipine 5 Mg Tab) 10 mg PO DAILY [facility] Last Admin: 09/14/20 08:12 Dose: 10 mg Documented by: Aspirin (Aspirin 81 Mg Tab.Ec) 81 mg PO DAILY [facility] Last Admin: 09/14/20 08:12 Dose: 81 mg Documented by: Atorvastatin Calcium (Atorvastatin 40 Mg Tab) 80 mg PO BEDTIME [facility] Last Admin: 09/13/20 21:47 Dose: 80 mg Documented by: Dextrose/Water (50% Dextrose In Water 50 Ml Syringe) 50 ml IVPUSH ASDIRECTED PRN PRN Reason: Hypoglycemia Glucagon (Glucagon,Human Recombinant 1 Mg Vial) 1 mg IM ASDIRECTED PRN PRN Reason: Hypoglycemia Heparin Sodium (Porcine) (Heparin Sodium 5,000 Units/Ml Vial) 5,000 units SUBCUT Q8H [facility] Last Admin: 09/14/20 07:59 Dose: 5,000 units Documented by: Pantoprazole Sodium 40 mg/ (Sodium Chloride) 10 mls @ 200 mls/hr IV DAILY [facility] Insulin Aspart (Insulin Aspart 100 Units/Ml 3 Ml Pen) 0 unit SUBCUT TIDAC [facility]; Protocol Last Admin: 09/14/20 08:02 Dose: 1 units Documented by: Insulin Detemir (Insulin Detemir 100 Units/Ml 3 Ml Pen) 10 unit SUBCUT BEDTIME [facility] Last Admin: 09/13/20 21:46 Dose: 10 units Documented by: Levothyroxine Sodium (Levothyroxine 75 Mcg Tab) 75 mcg PO ACBREAKFAST [facility] Last Admin: 09/14/20 07:59 Dose: 75 mcg Documented by: Lisinopril (Lisinopril 10 Mg Tab) 40 mg PO DAILY [facility] Last Admin: 09/14/20 08:10 Dose: 40 mg Documented by: Metoprolol Succinate (Metoprolol Succinate 25 Mg Tab.Er) 25 mg PO DAILY [facility] Ondansetron HCl (Ondansetron 4 Mg/2 Ml Sdv) 4 mg IVPUSH Q4H PRN PRN Reason: Nausea/Vomiting Potassium Chloride (Potassium Chloride 20 Meq Tab.Er) 40 meq PO BID@0800,1100 [facility] Stop: 09/14/20 11:01 Discontinued Medications Amlodipine Besylate (Amlodipine 5 Mg Tab) 10 mg PO ONETIME ONE Stop: 09/13/20 00:04 Last Admin: 09/13/20 01:05 Dose: 10 mg Documented by: Amlodipine Besylate (Amlodipine 5 Mg Tab) 10 mg PO DAILY [facility] Atorvastatin Calcium (Atorvastatin 20 Mg Tab) 20 mg PO BEDTIME [facility] Bacitracin (Bacitracin Oint 1 Gm U/D Packet) 2 dose TOP ONETIME ONE Stop: 09/12/20 17:31 Last Admin: 09/12/20 17:43 Dose: 2 dose Documented by: Diphtheria/Tetanus/Acell Pertussis (Diphtheria,Pertussis(Acell),Tetanus Vaccine 0.5 Ml Syringe) 0.5 ml IM .ONCE ONE Stop: 09/12/20 17:31 Last Admin: 09/12/20 17:44 Dose: 0.5 ml Documented by: Heparin Sodium (Porcine) (Heparin Sodium 5,000 Units/Ml Vial) 5,000 units SUBCUT Q8H [facility] Last Admin: 09/13/20 01:01 Dose: 5,000 units Documented by: Sodium Chloride (Normal Saline) 1,000 mls @ 999 mls/hr IV BOLUS ONE Stop: 09/12/20 18:29 Last Admin: 09/12/20 17:45 Dose: 999 mls/hr Documented by: Lactated Ringer's (Ringers, Lactated) 1,000 mls @ 125 mls/hr IV ASDIRECTED [facility] Last Admin: 09/13/20 03:18 Dose: 125 mls/hr Documented by: Magnesium Sulfate 2 gm/ Premix 50 mls @ 25 mls/hr IV ONETIME ONE Stop: 09/13/20 11:59 Last Admin: 09/13/20 11:51 Dose: 25 mls/hr Documented by: Labetalol HCl (Labetalol 100 Mg/20 Ml Mdv) 20 mg IVPUSH ONETIME ONE; Protocol Stop: 09/12/20 22:45 Last Admin: 09/12/20 22:56 Dose: 20 mg Documented by: Labetalol HCl (Labetalol 100 Mg/20 Ml Mdv) 20 mg IVPUSH ONETIME ONE; Protocol Stop: 09/12/20 23:35 Last Admin: 09/12/20 23:37 Dose: 20 mg Documented by: Labetalol HCl (Labetalol 100 Mg/20 Ml Mdv) 20 mg IVPUSH ONETIME ONE; Protocol Stop: 09/14/20 00:55 Last Admin: 09/14/20 01:00 Dose: 20 mg Documented by: Labetalol HCl (Labetalol 100 Mg/20 Ml Mdv) Confirm Administered Dose 100 mg .ROUTE .STK-MED ONE Stop: 09/14/20 01:00 Last Admin: 09/14/20 02:05 Dose: Not Given Documented by: Lisinopril (Lisinopril 10 Mg Tab) 20 mg PO ONETIME ONE Stop: 09/13/20 00:05 Last Admin: 09/13/20 01:02 Dose: 20 mg Documented by: Lisinopril (Lisinopril 10 Mg Tab) 40 mg PO DAILY [facility] Pantoprazole Sodium (Pantoprazole 40 Mg Vial) 40 mg IV DAILY [facility] Last Admin: 09/13/20 07:59 Dose: 40 mg Documented by: Potassium Chloride (Potassium Chloride 20 Meq Tab.Er) 40 meq PO ONETIME ONE Stop: 09/12/20 22:11 Last Admin: 09/13/20 01:00 Dose: 40 meq Documented by: - Exam Physical Findings Comments:: MS - awake, alert CN - EOMI, no facial droop Motor - proximal LLE weakness a/w pain Sepsis Event Note - Evaluation Sepsis Screening Result: No Definite Risk - Focused Exam Vital Signs: Vital Signs Temp Pulse Resp BP BP Pulse Ox 09/14/20 09:03 36.3 C 73 16 164/70 H 92 L 09/14/20 08:28 36.3 C 73 16 164/70 H 92 L 09/14/20 08:12 164/80 H 09/14/20 08:10 164/80 H 09/14/20 04:30 82 164/80 H 09/14/20 04:00 36.6 C 80 21 H 172/80 H 94 L 09/14/20 00:05 36.5 C 85 20 184/83 H 96 Consult PN Assessment/Plan Procedures: Procedures ASSAY OF FREE THYROXINE (02/19/20) ASSAY OF MAGNESIUM (02/19/20) ASSAY OF PHOSPHORUS (02/19/20) ASSAY THYROID STIM HORMONE (02/19/20) COMPLETE CBC W/AUTO DIFF WBC (04/03/20) COMPREHEN METABOLIC PANEL (04/03/20) CT HEAD/BRAIN W/O DYE (02/19/20) CT NECK SPINE W/O DYE (02/19/20) ELECTROCARDIOGRAM TRACING (02/19/20) EMERGENCY DEPT VISIT (04/03/20) EVALUATE SWALLOWING FUNCTION (02/19/20) GLUCOSE BLOOD TEST (04/03/20) GLYCOSYLATED HEMOGLOBIN TEST (02/19/20) HEPATIC FUNCTION PANEL (02/19/20) IMMUNIZATION ADMIN (02/19/20) LIPID PANEL (02/19/20) METABOLIC PANEL TOTAL CA (02/19/20) MICROBE SUSCEPTIBLE CHRISTIAN (02/19/20) MRI CHEST SPINE W/O DYE (06/20/20) MRI LUMBAR SPINE W/O DYE (06/20/20) MRI NECK SPINE W/O DYE (05/22/20) PT EVAL LOW COMPLEX 20 MIN (02/19/20) ROUTINE VENIPUNCTURE (04/03/20) THER/PROPH/DIAG INJ IV PUSH (02/19/20) THERAPEUTIC ACTIVITIES (02/19/20) URINALYSIS AUTO W/SCOPE (04/03/20) URINE BACTERIA CULTURE (02/19/20) URINE CULTURE/COLONY COUNT (02/19/20) US EXAM OF HEAD AND NECK (06/20/20) (1) Acute ischemic stroke SNOMED Code(s): 141463893, 557917125 Code(s): I63.9 - CEREBRAL INFARCTION, UNSPECIFIED Current Visit: Yes Assessment:: 1Stroke A1c 9.3, LDL 86, TSH 12.75 Stroke appear late acute / subacute, so permissive HTN not necessarily unless lower BP are associated with worsening deficits PT/OT Tobacco cessation counseling Agree with high intensity statin Telemetry, zio patch upon discharge Antiplatelet 2. Gait dysfunction -chronic gait dysfunction due to diabetic polyneuropathy worsened by subacute stroke She would benefit from inpt PT/SNF but she declined. f/u neurology 6 weeks to review zio patch results (2) Ambulatory dysfunction SNOMED Code(s): 721379945 Code(s): R26.2 - DIFFICULTY IN WALKING, NOT ELSEWHERE CLASSIFIED Current Visit: Yes Problem List Initiated/Reviewed/Updated: Yes
--- NOTE | 2020-09-14 12:39 | PCM.DCSUM1 ---
Discharge Summary - Hospital Course Brief History: This 70-year-old female with past medical history of hypertension, hyperlipidemia and diabetes presented to the ER with concerns of weakness and increased falls. She reports that she had fallen twice yesterday has an abrasion to her left elbow. She reports that when she is up walking she suddenly just has weakness to the left side and it gives out and she falls. Reports that she has been following with Dr. Asher over the past 6 months and has had multiple MRIs and attempt to diagnose cause of weakness. Patient reports that she is falling every once in a while but feels that the falls are now increasing as she has had 2 today and feels more weak. She lives with her brother at home who is also in poor health. Reports that she is also had urinary incontinence for over 6 months and reports this is not changed or new. She denies any fevers chills chest pain or palpitations. Denies any neck pain or head injury. Denies any abdominal pain. Denies any dysuria. Denies any constipation or diarrhea no black or bloody bowel movements. She denies any back pain. She does report that she is noncompliant with medications and appears that she has not taken her gotten medications from the pharmacy since March. She denies any alcohol use no recreational drug use but does confirm half a pack a day tobacco use. In the ER chest x-ray obtained which shows no acute cardiopulmonary process. Left elbow x-ray obtained due to fall. This reveals no acute fracture. Possible small elbow effusion. EKG sinus rhythm heart rate in the 70s no ST or T wave changes. Right bundle branch block noted. Head CT obtained which shows no traumatic injuries. No hemorrhage or mass. Reveals periventricular white matter changes consistent with microvascular disease. Pelvis x-ray obtained as well as CT which revealed no evidence of acute fracture or dislocation. No leukocytosis noted. Mild hypokalemia noted 3.1 BUN 21 creatinine 1.0 glucose mildly elevated 186. Troponin negative. TSH 12.75 T4 0.79. UA negative Covid swab negative. Patient treated with potassium. She was also noted to have significantly elevated blood pressure on arrival she was treated with labetalol x2 along with lisinopril and amlodipine. Patient will be admitted for weakness in left lower extremity weakness along with hypokalemia. PCP Dr. Sims, has seen Dr. Asher neurology. Upon chart review appears patient recently saw Dr. Asher and reviewed MRIs completed. Appears she likely has polyneuropathy secondary to noncompliance and treatment of blood pressure as well as diabetes. - Discharge Data Discharge Date: 09/14/20 Discharge Disposition: Home, W Home Health Agency 06 Condition: Good - Referral to Home Health Date of Face to Face Encounter: 09/14/20 Reason for Homebound Status: Gely is homebound unable to drive as her license was revoked and needs assistance of caregiver and walker to ambulate safely due to unsteady gait and history of falls. Primary Care Physician: PCP None Skilled Need: Gely is in need of long-term care to help with medication administration and education along with reinforcement of medication compliance. She is also in need of long-term care to help monitor blood sugars as well as vital signs. Also need of help with ADLs such as performing bathing and self-cares. She is also in need of physical therapy to evaluate and treat secondary to increased falls recent diagnosis of acute CVA and left-sided weakness. She would benefit from occupational therapy to evaluate and treat for ability to perform ADLs appropriately along with a home safety evaluation. She would also benefit from social work consultation for evaluation of abilities to stay at home and care for herself appropriately along with setting up community resources. - Discharge Diagnosis/Problem(s) (1) Falls SNOMED Code(s): 3334132, 962036639 ICD Code: W19.XXXA - UNSPECIFIED FALL, INITIAL ENCOUNTER Status: Acute Current Visit: Yes Qualifiers: Encounter type: initial encounter Qualified Code(s): W19.XXXA - Unspecified fall, initial encounter (2) Acute ischemic stroke SNOMED Code(s): 747312526, 628214664 ICD Code: I63.9 - CEREBRAL INFARCTION, UNSPECIFIED Status: Acute Current Visit: Yes (3) Hypokalemia SNOMED Code(s): 85001627 ICD Code: E87.6 - HYPOKALEMIA Status: Acute Current Visit: Yes (4) Ambulatory dysfunction SNOMED Code(s): 840103012 ICD Code: R26.2 - DIFFICULTY IN WALKING, NOT ELSEWHERE CLASSIFIED Status: Acute Current Visit: Yes (5) Type 2 diabetes mellitus, uncontrolled SNOMED Code(s): 981363088, 741965025 ICD Code: E11.65 - TYPE 2 DIABETES MELLITUS WITH HYPERGLYCEMIA Status: [facility] Current Visit: Yes Qualifiers: Glycemic state: with hyperglycemia Qualified Code(s): E11.65 - Type 2 diabetes mellitus with hyperglycemia (6) Hyperlipidemia SNOMED Code(s): 72419420 ICD Code: E78.5 - HYPERLIPIDEMIA, UNSPECIFIED Status: Chronic Current Visit: Yes Qualifiers: Hyperlipidemia type: mixed hyperlipidemia Qualified Code(s): E78.2 - Mixed hyperlipidemia (7) Hypertension SNOMED Code(s): 38574479 ICD Code: I10 - ESSENTIAL (PRIMARY) HYPERTENSION Status: Chronic Current Visit: Yes Qualifiers: Hypertension type: primary hypertension Qualified Code(s): I10 - Essential (primary) hypertension - Patient Summary/Data Consults: Consultations 09/12/20 22:09 Consult to Physical Therapy [PT Evaluation and Treatment] [CONS] Stat 09/12/20 22:13 Consult to Wound Care Services [CONS] Stat 09/13/20 15:34 Consult to Physician [CONS] Routine Hospital Course: Admission diagnoses Falls Hypokalemia Left lower extremity weakness Discharge diagnoses Subacute ischemic CVA noncompliance with medication regimen Hypothyroidism Other PMH HLD Hypertension Type 2 diabetes Gely was admitted secondary to increased falls and left lower extremity weakness at home. Patient has been worked up as outpatient for chronic gait dysfunction which is likely secondary to some diabetic polyneuropathy. Patient had seen neurologist the day prior to admission who had recommended MRI of brain. This was ordered on inpatient which appears to show subacute to early chronic lacunar infarctions. Along with right internal capsule posterior limb subinsular region late acute to early subacute lacunar infarct. MRA of head and neck obtained which shows no proximal arterial occlusion aneurysm dissection or vascular malformation. Mild less than 50% stenosis of the left ICA due to atherosclerosis no significant right ICA stenosis. Dr. Asher was consulted and saw patient. PT OT was consulted to evaluate patient's weakness. Stroke likely worsened gait dysfunction brought on by polyneuropathy. PT felt patient was in need of long-term facility to help with rehabilitation. We discussed this at length with patient but patient adamantly declined this and would want to return home. We did discuss that if she continues to have falls she may need to consider highly placement for either short-term rehabilitation before returning home. She continued to decline and very adamant on returning home. Echocardiogram obtained. Patient monitored on telemetry with no evidence of arrhythmia while in the hospital. Blood pressure was treated with home medication of amlodipine and lisinopril. On discharge she continued to have mildly elevated blood pressures which metoprolol 25 mg was added. She was also continued on statin but dose was increased to high intensity 80 mg at bedtime. She will be continued on this at home. She was also started on aspirin antiplatelet. She reported that she had an allergy to this due to nausea and vomiting but patient felt she was okay to take this we did encourage her to take the enteric-coated and to take it with food to limit stomach upset. Patient was counseled heavily on being compliant with medication regiment as patient has been very noncompliant at home with home medications. Patient verbalized that she would try to take medications and does not take them because people have not explained them to her or she does not feel she really needs them. She was counseled heavily on the need to take these medications to prevent any further strokes and that if she were to not take these medications she could potentially suffer debilitating stroke or even . We also encouraged her to quit smoking which she blatantly told providers that she would not quit smoking and verbalized that she had no interest in this. She again was counseled that tobacco use and nicotine use could worsen or cause strokes. She verbalized understanding. She will be discharged home today with Zio patch for 14 days to further evaluate arrhythmias. She will have follow-up with PCP as well as Dr. Asher. During her stay she was noted to be hypothyroid with TSH of 12. She was started on low-dose 75 mcg of Synthroid. She is to have repeat TSH in 6 weeks. Patient will be discharged home with home health with nursing PT OT and social work to provide appropriate care. Medications were discussed at length with her. Also discussed with her brother who she lives with importance of medication compliance. To return to the ER clinic if concerns should arise. - Patient Instructions Diet: Heart Healthy Diet, Diabetic Diet Activity: No Strenuous Activities Driving: Do Not Drive Showering/Bathing: May Shower Notify Provider of: Fever, Increased Pain, Swelling and Redness, Drainage, Nausea and/or Vomiting Other/Special Instructions: Zio patch for 14 days, results to be sent to Dr Sims and Dr Asher. Check blood sugars daily. TAKE YOUR MEDICATIONS PRESCRIBED. - Discharge Plan *PRESCRIPTION DRUG MONITORING PROGRAM REVIEWED*: Not Applicable *COPY OF PRESCRIPTION DRUG MONITORING REPORT IN PATIENT DAYANA: Not Applicable Prescriptions/Med Rec: amLODIPine Besylate [Amlodipine Besylate] 10 mg PO DAILY 30 Days #30 tablet atorvaSTATin Calcium [Atorvastatin Calcium] 80 mg PO BEDTIME #30 tablet metFORMIN [Glucophage] 500 mg PO BIDMEALS 15 Days #60 tablet Aspirin [Halfprin] 81 mg PO DAILY #30 tab.ec Insulin Detemir [Levemir] 10 unit SUBCUT BEDTIME #1 box Levothyroxine 75 mcg PO ACBREAKFAST #30 tablet lisinopriL [Lisinopril] 40 mg PO DAILY #30 tablet Metoprolol Succinate [Toprol XL] 25 mg PO DAILY #30 tab.er Home Medications: Home Meds Melatonin 3 mg PO BEDTIME PRN 15 Days #15 tablet 02/22/20 [Rx] Aspirin [Halfprin] 81 mg PO DAILY #30 tab.ec 09/14/20 [Rx] Insulin Detemir [Levemir] 10 unit SUBCUT BEDTIME #1 box 09/14/20 [Rx] Levothyroxine 75 mcg PO ACBREAKFAST #30 tablet 09/14/20 [Rx] Metoprolol Succinate [Toprol XL] 25 mg PO DAILY #30 tab.er 09/14/20 [Rx] amLODIPine Besylate [Amlodipine Besylate] 10 mg PO DAILY 30 Days #30 tablet 09/14/20 [Rx] atorvaSTATin Calcium [Atorvastatin Calcium] 80 mg PO BEDTIME #30 tablet 09/14/20 [Rx] lisinopriL [Lisinopril] 40 mg PO DAILY #30 tablet 09/14/20 [Rx] metFORMIN [Glucophage] 500 mg PO BIDMEALS 15 Days #60 tablet 09/14/20 [Rx] Oxygen Therapy Mode: Room Air Patient Handouts: Steps to Quit Smoking, [id number], Coping with Quitting Smoking, Levothyroxine tablets, Metoprolol extended-release tablets, Stroke Prevention, [id number], Ischemic Stroke, [id number], Insulin Detemir injection, Lisinopril tablets, Amlodipine Oral Tablets, Metformin tablets, Aspirin, ASA oral tablets Referrals: Isabela Asher MD [Physician] - 10/19/20 4:00 pm Joshua Sims MD [Ordering Only Provider] - 09/25/20 3:00 pm - Discharge Summary/Plan Comment DC Time >30 min.: No - Patient Data Vitals - Most Recent: Last Vital Signs Temp 97.3 F 09/14/20 09:03 Pulse 73 09/14/20 11:26 Resp 16 09/14/20 09:03 BP 164/70 H 09/14/20 11:26 Pulse Ox 92 L 09/14/20 09:03 Weight - Most Recent: 59.375 kg I&O - Last 24 hours: Intake & Output 09/13/20 09/14/20 09/14/20 22:59 06:59 14:59 Intake Total 1535 710 Balance 1535 710 Lab Results - Last 24 hrs: Laboratory Results - last 24 hr 09/13/20 09/13/20 09/13/20 Range/Units 08:15 12:58 13:24 WBC (4.0-11.0) K/uL RBC (4.30-5.90) M/uL Hgb (12.0-16.0) g/dL Hct (36.0-46.0) % MCV (80.0-98.0) fL MCH (27.0-32.0) pg MCHC (31.0-37.0) g/dL RDW Std Deviation (28.0-62.0) fl RDW Coeff of Nicci (11.0-15.0) % Plt Count (150-400) K/uL MPV (7.40-12.00) fL Neut % (Auto) (48.0-80.0) % Lymph % (Auto) (16.0-40.0) % [place] % (Auto) (0.0-15.0) % Eos % (Auto) (0.0-7.0) % Baso % (Auto) (0.0-1.5) % Neut # (Auto) (1.4-5.7) K/uL Lymph # (Auto) (0.6-2.4) K/uL [place] # (Auto) (0.0-0.8) K/uL Eos # (Auto) (0.0-0.7) K/uL Baso # (Auto) (0.0-0.1) K/uL Nucleated RBC % /100WBC Nucleated RBCs # K/uL Sodium (136-145) mmol/L Potassium (3.5-5.1) mmol/L Chloride (98-107) mmol/L Carbon Dioxide (21.0-32.0) mmol/L BUN (7.0-18.0) mg/dL Creatinine (0.6-1.0) mg/dL Est Cr Clr Drug Dosing mL/min Estimated GFR (MDRD) ml/min Glucose (74-106) mg/dL POC Glucose 311 H (70-99) mg/dL Hemoglobin A1c 9.3 H (4.5 - 6.2) % Calcium (8.5-10.1) mg/dL Magnesium (1.8-2.4) mg/dL Triglycerides 244 H (0-200) mg/dL Cholesterol 168 (50-200) mg/dL LDL Cholesterol, Calc 86 (60-180) mg/dL VLDL Cholesterol 48 (5-55) mg/dL HDL Cholesterol 33 L (40-60) mg/dL Cholesterol/HDL Ratio 5.1 (3.3-6.0) 09/13/20 09/13/20 09/14/20 Range/Units 17:40 21:46 05:57 WBC 8.43 (4.0-11.0) K/uL RBC 4.23 L (4.30-5.90) M/uL Hgb 12.9 (12.0-16.0) g/dL Hct 38.6 (36.0-46.0) % MCV 91.3 (80.0-98.0) fL MCH 30.5 (27.0-32.0) pg MCHC 33.4 (31.0-37.0) g/dL RDW Std Deviation 42.6 (28.0-62.0) fl RDW Coeff of Nicci 13 (11.0-15.0) % Plt Count 226 (150-400) K/uL MPV 10.80 (7.40-12.00) fL Neut % (Auto) 66.8 (48.0-80.0) % Lymph % (Auto) 24.3 (16.0-40.0) % [place] % (Auto) 7.6 (0.0-15.0) % Eos % (Auto) 1.1 (0.0-7.0) % Baso % (Auto) 0.2 (0.0-1.5) % Neut # (Auto) 5.6 (1.4-5.7) K/uL Lymph # (Auto) 2.1 (0.6-2.4) K/uL [place] # (Auto) 0.6 (0.0-0.8) K/uL Eos # (Auto) 0.1 (0.0-0.7) K/uL Baso # (Auto) 0.0 (0.0-0.1) K/uL Nucleated RBC % 0.0 /100WBC Nucleated RBCs # 0 K/uL Sodium (136-145) mmol/L Potassium (3.5-5.1) mmol/L Chloride (98-107) mmol/L Carbon Dioxide (21.0-32.0) mmol/L BUN (7.0-18.0) mg/dL Creatinine (0.6-1.0) mg/dL Est Cr Clr Drug Dosing mL/min Estimated GFR (MDRD) ml/min Glucose (74-106) mg/dL POC Glucose 255 H 258 H (70-99) mg/dL Hemoglobin A1c (4.5 - 6.2) % Calcium (8.5-10.1) mg/dL Magnesium (1.8-2.4) mg/dL Triglycerides (0-200) mg/dL Cholesterol (50-200) mg/dL LDL Cholesterol, Calc (60-180) mg/dL VLDL Cholesterol (5-55) mg/dL HDL Cholesterol (40-60) mg/dL Cholesterol/HDL Ratio (3.3-6.0) 09/14/20 09/14/20 09/14/20 Range/Units 05:57 06:28 11:24 WBC (4.0-11.0) K/uL RBC (4.30-5.90) M/uL Hgb (12.0-16.0) g/dL Hct (36.0-46.0) % MCV (80.0-98.0) fL MCH (27.0-32.0) pg MCHC (31.0-37.0) g/dL RDW Std Deviation (28.0-62.0) fl RDW Coeff of Nicci (11.0-15.0) % Plt Count (150-400) K/uL MPV (7.40-12.00) fL Neut % (Auto) (48.0-80.0) % Lymph % (Auto) (16.0-40.0) % [place] % (Auto) (0.0-15.0) % Eos % (Auto) (0.0-7.0) % Baso % (Auto) (0.0-1.5) % Neut # (Auto) (1.4-5.7) K/uL Lymph # (Auto) (0.6-2.4) K/uL [place] # (Auto) (0.0-0.8) K/uL Eos # (Auto) (0.0-0.7) K/uL Baso # (Auto) (0.0-0.1) K/uL Nucleated RBC % /100WBC Nucleated RBCs # K/uL Sodium 143 (136-145) mmol/L Potassium 3.2 L (3.5-5.1) mmol/L Chloride 105 (98-107) mmol/L Carbon Dioxide 27.7 (21.0-32.0) mmol/L BUN 13 (7.0-18.0) mg/dL Creatinine 0.9 (0.6-1.0) mg/dL Est Cr Clr Drug Dosing 49.51 mL/min Estimated GFR (MDRD) > 60.0 ml/min Glucose 176 H (74-106) mg/dL POC Glucose 173 H 226 H (70-99) mg/dL Hemoglobin A1c (4.5 - 6.2) % Calcium 8.2 L (8.5-10.1) mg/dL Magnesium 2.0 (1.8-2.4) mg/dL Triglycerides (0-200) mg/dL Cholesterol (50-200) mg/dL LDL Cholesterol, Calc (60-180) mg/dL VLDL Cholesterol (5-55) mg/dL HDL Cholesterol (40-60) mg/dL Cholesterol/HDL Ratio (3.3-6.0) Med Orders - Current: Current Medications Acetaminophen (Acetaminophen 325 Mg Tab) 650 mg PO Q4H PRN PRN Reason: Pain (Mild 1-3)/fever Albuterol/Ipratropium (Albuterol/Ipratropium 3.0-0.5 Mg/3 Ml Neb Soln) 3 ml NEB Q4HRRT PRN PRN Reason: Shortness Of Breath/wheezing Amlodipine Besylate (Amlodipine 5 Mg Tab) 10 mg PO DAILY [facility] Last Admin: 09/14/20 08:12 Dose: 10 mg Documented by: Aspirin (Aspirin 81 Mg Tab.Ec) 81 mg PO DAILY [facility] Last Admin: 09/14/20 08:12 Dose: 81 mg Documented by: Atorvastatin Calcium (Atorvastatin 40 Mg Tab) 80 mg PO BEDTIME [facility] Last Admin: 09/13/20 21:47 Dose: 80 mg Documented by: Dextrose/Water (50% Dextrose In Water 50 Ml Syringe) 50 ml IVPUSH ASDIRECTED PRN PRN Reason: Hypoglycemia Glucagon (Glucagon,Human Recombinant 1 Mg Vial) 1 mg IM ASDIRECTED PRN PRN Reason: Hypoglycemia Heparin Sodium (Porcine) (Heparin Sodium 5,000 Units/Ml Vial) 5,000 units SUBCUT Q8H [facility] Last Admin: 09/14/20 07:59 Dose: 5,000 units Documented by: Pantoprazole Sodium 40 mg/ (Sodium Chloride) 10 mls @ 200 mls/hr IV DAILY [facility] Last Admin: 09/14/20 09:05 Dose: 200 mls/hr Documented by: Insulin Aspart (Insulin Aspart 100 Units/Ml 3 Ml Pen) 0 unit SUBCUT TIDAC [facility]; Protocol Last Admin: 09/14/20 11:25 Dose: 2 units Documented by: Insulin Detemir (Insulin Detemir 100 Units/Ml 3 Ml Pen) 10 unit SUBCUT BEDTIME [facility] Last Admin: 09/13/20 21:46 Dose: 10 units Documented by: Levothyroxine Sodium (Levothyroxine 75 Mcg Tab) 75 mcg PO ACBREAKFAST [facility] Last Admin: 09/14/20 07:59 Dose: 75 mcg Documented by: Lisinopril (Lisinopril 10 Mg Tab) 40 mg PO DAILY [facility] Last Admin: 09/14/20 08:10 Dose: 40 mg Documented by: Metoprolol Succinate (Metoprolol Succinate 25 Mg Tab.Er) 25 mg PO DAILY [facility] Last Admin: 09/14/20 11:26 Dose: 25 mg Documented by: Ondansetron HCl (Ondansetron 4 Mg/2 Ml Sdv) 4 mg IVPUSH Q4H PRN PRN Reason: Nausea/Vomiting Discontinued Medications Amlodipine Besylate (Amlodipine 5 Mg Tab) 10 mg PO ONETIME ONE Stop: 09/13/20 00:04 Last Admin: 09/13/20 01:05 Dose: 10 mg Documented by: Amlodipine Besylate (Amlodipine 5 Mg Tab) 10 mg PO DAILY [facility] Atorvastatin Calcium (Atorvastatin 20 Mg Tab) 20 mg PO BEDTIME [facility] Bacitracin (Bacitracin Oint 1 Gm U/D Packet) 2 dose TOP ONETIME ONE Stop: 09/12/20 17:31 Last Admin: 09/12/20 17:43 Dose: 2 dose Documented by: Diphtheria/Tetanus/Acell Pertussis (Diphtheria,Pertussis(Acell),Tetanus Vaccine 0.5 Ml Syringe) 0.5 ml IM .ONCE ONE Stop: 09/12/20 17:31 Last Admin: 09/12/20 17:44 Dose: 0.5 ml Documented by: Heparin Sodium (Porcine) (Heparin Sodium 5,000 Units/Ml Vial) 5,000 units SUBCUT Q8H [facility] Last Admin: 09/13/20 01:01 Dose: 5,000 units Documented by: Sodium Chloride (Normal Saline) 1,000 mls @ 999 mls/hr IV BOLUS ONE Stop: 09/12/20 18:29 Last Admin: 09/12/20 17:45 Dose: 999 mls/hr Documented by: Lactated Ringer's (Ringers, Lactated) 1,000 mls @ 125 mls/hr IV ASDIRECTED [facility] Last Admin: 09/13/20 03:18 Dose: 125 mls/hr Documented by: Magnesium Sulfate 2 gm/ Premix 50 mls @ 25 mls/hr IV ONETIME ONE Stop: 09/13/20 11:59 Last Admin: 09/13/20 11:51 Dose: 25 mls/hr Documented by: Labetalol HCl (Labetalol 100 Mg/20 Ml Mdv) 20 mg IVPUSH ONETIME ONE; Protocol Stop: 09/12/20 22:45 Last Admin: 09/12/20 22:56 Dose: 20 mg Documented by: Labetalol HCl (Labetalol 100 Mg/20 Ml Mdv) 20 mg IVPUSH ONETIME ONE; Protocol Stop: 09/12/20 23:35 Last Admin: 09/12/20 23:37 Dose: 20 mg Documented by: Labetalol HCl (Labetalol 100 Mg/20 Ml Mdv) 20 mg IVPUSH ONETIME ONE; Protocol Stop: 09/14/20 00:55 Last Admin: 09/14/20 01:00 Dose: 20 mg Documented by: Labetalol HCl (Labetalol 100 Mg/20 Ml Mdv) Confirm Administered Dose 100 mg .ROUTE .STK-MED ONE Stop: 09/14/20 01:00 Last Admin: 09/14/20 02:05 Dose: Not Given Documented by: Lisinopril (Lisinopril 10 Mg Tab) 20 mg PO ONETIME ONE Stop: 09/13/20 00:05 Last Admin: 09/13/20 01:02 Dose: 20 mg Documented by: Lisinopril (Lisinopril 10 Mg Tab) 40 mg PO DAILY [facility] Pantoprazole Sodium (Pantoprazole 40 Mg Vial) 40 mg IV DAILY [facility] Last Admin: 09/13/20 07:59 Dose: 40 mg Documented by: Potassium Chloride (Potassium Chloride 20 Meq Tab.Er) 40 meq PO ONETIME ONE Stop: 09/12/20 22:11 Last Admin: 09/13/20 01:00 Dose: 40 meq Documented by: Potassium Chloride (Potassium Chloride 20 Meq Tab.Er) 40 meq PO BID@0800,1100 [facility] Stop: 09/14/20 11:01 Last Admin: 09/14/20 09:05 Dose: 40 meq Documented by:
--- NOTE | 2020-09-18 17:12 | ECHO ---
The echocardiogram report can be seen in this patient's EMR (Electronic Medical Record) in the Reports section. The report has also been scanned into PACS. CAROLYN
== END 2020-09-14 13:40 | disposition home health service (06) ==
LOC: MW.ED 17:08 → MW.MS 22:02
PROVIDERS: ADMIT Student in an Organized Health Care Education/Training Program; ATTEND Student in an Organized Health Care Education/Training Program
DX: I63.9 Cerebral infarction, unspecified (principal); I10 Essential (primary) hypertension; S50.312A Abrasion of left elbow, initial encounter; E78.00 Pure hypercholesterolemia, unspecified; F17.210 Nicotine dependence, cigarettes, uncomplicated; E87.6 Hypokalemia; R26.2 Difficulty in walking, not elsewhere classified; E11.65 Type 2 diabetes mellitus with hyperglycemia; E03.9 Hypothyroidism, unspecified; Z88.8 Allergy status to other drugs, medicaments and biological substances; Z88.5 Allergy status to narcotic agent; Z91.018 Allergy to other foods; Z79.4 Long term (current) use of insulin; Z79.899 Other long term (current) drug therapy; W19.XXXA Unspecified fall, initial encounter
CPT/HCPCS: 36415; 70450; 70544; 70547; 70551; 71045; 72170; 72192; 73070; 80048; 80053; 80061; 81003; 82947; 83036; 83735; 84439; 84443; 84484; 85025; 90471; 90715; 93005; 93306; 96365; 96366; 96372; 96375; 96376; 97110; 97162; 99285; A9270; C9113; G0378; J1644; J1815; J3475; J3490; J7030; J7120; U0002; 93010; 96374; 99217; 99220; 99284

== ENCOUNTER 2021-04-19 14:22 | Inpatient (IN) | payer MEDICARE, OTHER ==
[2021-04-19 15:41] LABS: BLOOD UREA NITROGEN,BUN 29 mg/dL (7.0-18.0); CARBON DIOXIDE,CO2 26.5 mmol/L (21.0-32.0); CHLORIDE,CL 101 mmol/L (98-107); GLUCOSE RANDOM 354 mg/dL (74-106); LIPASE 61 U/L (73-393); SODIUM,NA 140 mmol/L (136-145)
[2021-04-19] MEDS ORDERED: Sodium Chloride 0.9% 1,000 ML IV ONE (16:05)
[2021-04-19] MEDS ORDERED: cefTRIAXone 1 GM in Sodium Chloride 0.9% 50 ML IV ONE (16:06)
[2021-04-19] MEDS ORDERED: Insulin Regular, Human 100 Units/ML 10 ML Vial IVPUSH ONE (16:28)
[2021-04-19 17:03] LABS: CORONAVIRUS COVID-19 NAA NEGATIVE (NEGATIVE); INFLUENZA A NAA NEGATIVE (NEGATIVE); INFLUENZA B NAA NEGATIVE (NEGATIVE)
[2021-04-19] MEDS ORDERED: Acetaminophen 325 MG Tab PO PRN (18:16)
[2021-04-19] MEDS ORDERED: Glucagon,Human Recombinant 1 MG Vial IM PRN (18:19)
[2021-04-19] MEDS ORDERED: 50% Dextrose in Water 50 ML Syringe IVPUSH PRN (18:19)
[2021-04-19] MEDS ORDERED: Lactated Ringers 1,000 ML IV SCH (18:30)
[2021-04-19] MEDS: amLODIPine 5 MG Tab PO SCH (20:45)
[2021-04-20 06:11] LABS: CARBON DIOXIDE,CO2 25.8 mmol/L (21.0-32.0); POTASSIUM,K 3.2 mmol/L (3.5-5.1)
[2021-04-20] MEDS ORDERED: Potassium Chloride 20 MEQ Tab.ER PO ONE (06:47)
[2021-04-20] MEDS: Levothyroxine 75 MCG Tab PO SCH (07:10)
[2021-04-20] MEDS: Metoprolol Succinate 25 MG Tab.ER PO SCH (08:12)
[2021-04-20] MEDS: Insulin Aspart 100 Units/ML 3 ML Pen SUBCUT SCH ×4 (08:14→17:56)
[2021-04-20] MEDS: cefTRIAXone 1 GM in Sodium Chloride 0.9% 50 ML IV SCH (15:15)
[2021-04-20] MEDS: amLODIPine 5 MG Tab PO SCH (20:17)
[2021-04-21 06:31] LABS: CARBON DIOXIDE,CO2 24.1 mmol/L (21.0-32.0); POTASSIUM,K 3.7 mmol/L (3.5-5.1)
[2021-04-21] MEDS: Levothyroxine 75 MCG Tab PO SCH (06:33)
[2021-04-21] MEDS: Insulin Aspart 100 Units/ML 3 ML Pen SUBCUT SCH ×3 (08:54→17:33)
[2021-04-21] MEDS: Metoprolol Succinate 25 MG Tab.ER PO SCH (08:55)
[2021-04-21] MEDS: cefTRIAXone 1 GM in Sodium Chloride 0.9% 50 ML IV SCH (15:40)
[2021-04-21] MEDS: amLODIPine 5 MG Tab PO SCH (20:40)
[2021-04-22 05:54] LABS: CARBON DIOXIDE,CO2 25.4 mmol/L (21.0-32.0); POTASSIUM,K 3.7 mmol/L (3.5-5.1)
[2021-04-22] MEDS: Levothyroxine 75 MCG Tab PO SCH (06:34)
[2021-04-22] MEDS: Insulin Aspart 100 Units/ML 3 ML Pen SUBCUT SCH ×3 (07:38→17:26)
[2021-04-22] MEDS: Metoprolol Succinate 25 MG Tab.ER PO SCH (08:14)
[2021-04-22] MEDS ORDERED: Glucagon,Human Recombinant 1 MG Vial IM PRN (09:50)
[2021-04-22] MEDS ORDERED: 50% Dextrose in Water 50 ML Syringe IVPUSH PRN (09:50)
[2021-04-22] MEDS: cefTRIAXone 1 GM in Sodium Chloride 0.9% 50 ML IV SCH (15:12)
[2021-04-22] MEDS: amLODIPine 5 MG Tab PO SCH (21:15)
[2021-04-22] MEDS: Insulin Glargine,Human Rec. Analog 100 Units/ML 3 ML Pen SUBCUT SCH (21:15)
[2021-04-23 06:49] LABS: CARBON DIOXIDE,CO2 26.4 mmol/L (21.0-32.0); POTASSIUM,K 3.7 mmol/L (3.5-5.1)
[2021-04-23] MEDS: Enoxaparin 40 MG/0.4 ML Syringe SUBCUT SCH (07:49)
[2021-04-23] MEDS: Levothyroxine 75 MCG Tab PO SCH (07:49)
[2021-04-23] MEDS: Insulin Aspart 100 Units/ML 3 ML Pen SUBCUT SCH ×3 (07:51→17:54)
[2021-04-23] MEDS: Metoprolol Succinate 25 MG Tab.ER PO SCH (08:00)
[2021-04-23] MEDS ORDERED: Sodium Chloride 0.9% 500 ML IV SCH (10:30)
[2021-04-23] MEDS: cefTRIAXone 1 GM in Sodium Chloride 0.9% 50 ML IV SCH (15:20)
[2021-04-23] MEDS: amLODIPine 5 MG Tab PO SCH (20:44)
[2021-04-23] MEDS: Insulin Glargine,Human Rec. Analog 100 Units/ML 3 ML Pen SUBCUT SCH (20:46)
[2021-04-24] MEDS: Levothyroxine 75 MCG Tab PO SCH (06:33)
[2021-04-24] MEDS: Insulin Aspart 100 Units/ML 3 ML Pen SUBCUT SCH ×2 (07:01→12:30)
[2021-04-24] MEDS: Enoxaparin 40 MG/0.4 ML Syringe SUBCUT SCH (08:07)
[2021-04-24] MEDS: Metoprolol Succinate 25 MG Tab.ER PO SCH (08:11)
== END 2021-04-24 16:00 | disposition home health service (06) | DRG 683 ==
LOC: MW.ED 14:22 → MW.MS 17:29 → OBSVTOIN 04-22 12:38
PROVIDERS: ADMIT Student in an Organized Health Care Education/Training Program; ATTEND Student in an Organized Health Care Education/Training Program
DX: N17.9 Acute kidney failure, unspecified (principal); N39.0 Urinary tract infection, site not specified; I10 Essential (primary) hypertension; E78.00 Pure hypercholesterolemia, unspecified; R32 Unspecified urinary incontinence; W19.XXXA Unspecified fall, initial encounter; E86.0 Dehydration; Z88.8 Allergy status to other drugs, medicaments and biological substances; R26.2 Difficulty in walking, not elsewhere classified; H54.7 Unspecified visual loss; Z86.16 Personal history of COVID-19; Y92.002 Bathroom of unspecified non-institutional (private) residence as the place of occurrence of the external cause; Z90.710 Acquired absence of both cervix and uterus; R23.2 Flushing; T14.8XXA Other injury of unspecified body region, initial encounter; Z79.4 Long term (current) use of insulin; Z79.890 Hormone replacement therapy; Z79.899 Other long term (current) drug therapy; Z88.5 Allergy status to narcotic agent; Z88.6 Allergy status to analgesic agent; Z91.018 Allergy to other foods; E11.65 Type 2 diabetes mellitus with hyperglycemia; Z20.822 Contact with and (suspected) exposure to COVID-19
CPT/HCPCS: 0240U; 36415; 71045; 80048; 80053; 81001; 82947; 83690; 83735; 83880; 84100; 84484; 85025; 87086; 87088; 87186; 93005; 96365; 97110; 97116; 97163; 97530; 99285; 96376; A9270-GY; G0378; J0696; J1650; J1815-GY; J7030; J7040; J7120

== ENCOUNTER 2021-05-10 12:33 | Emergency (ER) | payer MEDICARE, OTHER ==
[2021-05-10 15:35] LABS: BLOOD UREA NITROGEN,BUN 24 mg/dL (7.0-18.0); CARBON DIOXIDE,CO2 27.7 mmol/L (21.0-32.0); CHLORIDE,CL 105 mmol/L (98-107); ESTIMATED GFR 44.2 ml/min; GLUCOSE RANDOM 236 mg/dL (74-106); POTASSIUM,K 4.1 mmol/L (3.5-5.1); SODIUM,NA 141 mmol/L (136-145)
[2021-05-10] MEDS ORDERED: Cephalexin 500 MG Cap PO STA (15:45)
== END 2021-05-10 16:26 | disposition home or self-care (01) ==
LOC: MW.ED 12:33
DX: N39.0 Urinary tract infection, site not specified (principal); I10 Essential (primary) hypertension; E11.9 Type 2 diabetes mellitus without complications; E03.9 Hypothyroidism, unspecified; E78.00 Pure hypercholesterolemia, unspecified; Z88.5 Allergy status to narcotic agent; Z91.018 Allergy to other foods; Z88.8 Allergy status to other drugs, medicaments and biological substances; Z91.048 Other nonmedicinal substance allergy status; Z79.4 Long term (current) use of insulin; Z79.899 Other long term (current) drug therapy; Z86.73 Personal history of transient ischemic attack (TIA), and cerebral infarction without residual deficits; Z72.0 Tobacco use; Z20.822 Contact with and (suspected) exposure to COVID-19
CPT/HCPCS: 36415; 80053; 81001; 82550; 82947; 83735; 84484; 85025; 85610; 93005; 93010; 99283; 99284-25; A9270-GY; U0002

== ENCOUNTER 2021-06-11 16:41 | Emergency (ER) | payer MEDICARE, OTHER ==
[2021-06-11] MEDS ORDERED: Sodium Chloride 0.9% 2.5 ML Syringe FLUSH PRN (16:51)
[2021-06-11] MEDS ORDERED: Sodium Chloride 0.9% 10 ML Syringe FLUSH PRN (16:51)
[2021-06-11] MEDS ORDERED: Sodium Chloride 0.9% 1,000 ML IV ONE (17:17)
[2021-06-11 17:35] LABS: CARBON DIOXIDE,CO2 27.5 mmol/L (21.0-32.0); POTASSIUM,K 3.5 mmol/L (3.5-5.1)
[2021-06-11] MEDS ORDERED: cefTRIAXone 1 GM in Sodium Chloride 0.9% 50 ML IV ONE (17:44)
[2021-06-11 18:11] LABS: CORONAVIRUS COVID-19 NAA NEGATIVE (NEGATIVE); INFLUENZA A NAA NEGATIVE (NEGATIVE); INFLUENZA B NAA NEGATIVE (NEGATIVE)
[2021-06-11] MEDS ORDERED: Tenecteplase 50 MG Kit IV STA (18:45)
[2021-06-11] MEDS ORDERED: Aspirin 81 MG Tab.Chew PO ONE (19:18)
== END 2021-06-11 19:16 ==
LOC: MW.ED 16:41
DX: I21.3 ST elevation (STEMI) myocardial infarction of unspecified site (principal); E86.0 Dehydration; N39.0 Urinary tract infection, site not specified; I10 Essential (primary) hypertension; M19.90 Unspecified osteoarthritis, unspecified site; E11.9 Type 2 diabetes mellitus without complications; Z86.73 Personal history of transient ischemic attack (TIA), and cerebral infarction without residual deficits; Z90.710 Acquired absence of both cervix and uterus; Z74.1 Need for assistance with personal care; Z79.899 Other long term (current) drug therapy; Z79.4 Long term (current) use of insulin; Z88.6 Allergy status to analgesic agent; Z88.5 Allergy status to narcotic agent; Z91.018 Allergy to other foods; Z20.822 Contact with and (suspected) exposure to COVID-19; W18.39XA Other fall on same level, initial encounter
CPT/HCPCS: 0240U; 36415; 70450; 71045; 72170; 80053; 81001; 82550; 84484; 85025; 87086; 93005; 96365; 99285; A9270; J0696; J3101; J3490; J7030; 87088; 87186